=== PATIENT | female | born 1955 | race Caucasian/White ===

== ENCOUNTER 2016-05-13 10:40 | Outpatient (RCR) | payer MEDICARE, OTHER ==
[~2016-05-13 10:40] MED LIST: ALBU17AE3; ALBU17AE3 IH; ALOE VERA GEL; ASP325T; ASPI-808 PO; ASPI-954; ASPI1TAB15 PO; BUDE6HFA; BUDE6HFA IH; CPR500T PO; ESCI10TA55 PO; ESCI20TA38 PO; ESCI20TA45 PO; LACT1TAB6; LISI1TAB8 PO; METR500T PO; MNTL10T PO; MTF500T; NAPR220T76; OMEP20CA12 PO; ONDN4T PO; PHEN-452; PROM25TA14 PO; RT-ALBUINH IH; ULTIMATE FLORA
== END 2016-06-16 10:46 | disposition home or self-care (01) ==
PROVIDERS: ATTEND Orthopaedic Surgery
DX: Z47.1 Aftercare following joint replacement surgery (principal); Z96.652 Presence of left artificial knee joint

== ENCOUNTER → 2017-06-30 | Outpatient (CLI) | payer MEDICARE, OTHER ==
--- NOTE | 2017-06-30 15:07 | Diagnostic Imaging Report ---
INDICATION: Routine screening. COMPARISON: Comparison is made with a bilateral mammogram from 09/17/2015 as well as left mammograms from 10/27/2015 and 03/21/2016. TECHNIQUE: Screening digital mammography was performed bilaterally with a Computer Aided Detection (CAD) system. FINDINGS: Both breasts are heterogeneously dense, limiting the sensitivity of mammography. There are well-defined nodular densities in both breasts which appear to be stable and likely benign. No spiculated mass is identified. No malignant appearing microcalcifications are seen. There are benign calcifications bilaterally. The axillae are unremarkable. IMPRESSION: No mammographic features suspicious for malignancy are identified. ACR BI-RADS Category 2: Benign findings. Result letter will be mailed to the patient. Note: At least 10% of breast cancer is not imaged by mammography. Dictated by: Dictated on workstation # [id number]
== END ==
LOC: RAD 10:38
PROVIDERS: ATTEND Nurse Practitioner Family
DX: Z12.31 Encounter for screening mammogram for malignant neoplasm of breast (principal); Z98.890 Other specified postprocedural states
CPT/HCPCS: 77067

== ENCOUNTER 2017-11-21 13:37 | Outpatient (RCR) | payer MEDICARE, OTHER | END 2018-01-17 | disposition home or self-care (01) | PROVIDERS: ATTEND Orthopaedic Surgery | DX: M76.31 Iliotibial band syndrome, right leg (principal); M76.32 Iliotibial band syndrome, left leg ==

== ENCOUNTER → 2018-09-03 | Outpatient (CLI) | payer MEDICARE, OTHER ==
[~2018-09-03] MED LIST changes: +HOLD METFORMIN - RECEIVED CONTRAST 20 ML VIAL IV SCH; +IOHEXOL 350 MG/ML 100 ML (OMNIPAQUE 350) VIAL IV ONE; +RT-ALBUTEROL SULF 2.5 MG/3 ML PRE-MIX VIAL INH ONE
[2018-09-03 13:34] LABS: BUN/CREATININE RATIO 43; CREATININE SERUM 0.79 MG/DL (0.60-1.30); GFR ESTIMATED > 60
--- NOTE | 2018-09-03 14:10 | Diagnostic Imaging Report ---
PROCEDURE: CT chest without contrast. TECHNIQUE: Multiple contiguous axial images were obtained through the chest without the use of intravenous contrast. Auto Exposure Controls were utilized during the CT exam to meet ALARA standards for radiation dose reduction. INDICATION: Asthma with shortness of air and chest tightness. COMPARISON: No prior studies are available for comparison. FINDINGS: No axillary lymphadenopathy is seen. Hilar and mediastinal evaluation is limited without intravenous contrast but no significant abnormality is detected. No pericardial or pleural fluid is identified. Lungs are clear. No infiltrates, nodules or masses are seen. Central airways are patent. There is a circumscribed nodule in the right breast, likely accounting for multiple circumscribed masses noted on prior mammograms. Upper abdomen demonstrates a cortical density arising from the left kidney which measures slightly larger on today's study when compared with 2015. This now measures 13 mm compared with 8 mm. This cannot be characterized as a simple cyst. IMPRESSION: 1. Essentially unremarkable noncontrast CT of the chest. No pulmonary mass or infiltrate is seen. No chest effusion is identified. 2. Enlarging exophytic lesion arising from the upper pole of the left kidney posteriorly when compared with study dating back to 2015. Pre- and postcontrast CT may be useful to evaluate for enhancement. Dictated by: Dictated on workstation # [id number]
== END ==
LOC: RAD 12:44
PROVIDERS: ATTEND Nurse Practitioner Family
DX: J45.909 Unspecified asthma, uncomplicated (principal); G47.33 Obstructive sleep apnea (adult) (pediatric); N28.9 Disorder of kidney and ureter, unspecified
CPT/HCPCS: 36415; 71250; 82565; 84520; 94060; 94640; 94726; 94729

== ENCOUNTER → 2018-09-11 | Outpatient (CLI) | payer MEDICARE, OTHER ==
[~2018-09-11] MED LIST changes: -HOLD METFORMIN - RECEIVED CONTRAST 20 ML VIAL IV SCH; -IOHEXOL 350 MG/ML 100 ML (OMNIPAQUE 350) VIAL IV ONE; -RT-ALBUTEROL SULF 2.5 MG/3 ML PRE-MIX VIAL INH ONE
[2018-09-11 15:25] LABS: BASOPHILS % (AUTO) 1 % (0-10); EOSINOPHILS # (AUTO) 0.1 10^3/uL (0.0-0.3); EOSINOPHILS % (AUTO) 2 % (0-10); HEMATOCRIT 45 % (35-52); LYMPHOCYTES # (AUTO) 1.2 X 10^3 (1.0-4.0); LYMPHOCYTES % (AUTO) 19 % (12-44); MEAN CORPUSCULAR HEMOGLOBIN 30 PG (25-34); MEAN CORPUSCULAR HGB CONC 33 G/DL (32-36); MEAN CORPUSCULAR VOLUME 90 FL (80-99); MEAN PLATELET VOLUME 10.7 FL (7.4-10.4); MONOCYTES # (AUTO) 0.4 X 10^3 (0.0-1.0); MONOCYTES % (AUTO) 6 % (0-12); NEUTROPHILS # (AUTO) 4.3 X 10^3 (1.8-7.8); NEUTROPHILS % (AUTO) 72 % (42-75); PLATELET COUNT 186 10^3/uL (130-400); RED CELL DISTRIBUTION WIDTH 13.9 % (10.0-14.5)
[2018-09-11 16:23] LABS: ABG BASE EXCESS 1.6 MMOL/L (-2.5-2.5); ABG OXYGEN SATURATION 97 % (94-100); ABG PCO2 35 MMHG (35-45); ABG PH 7.47 (7.37-7.43); ABG PO2 106 MMHG (79-93); ABG TCO2 26.3 MMOL/L (21.0-31.0); ALLENS TEST YES-POS; INSPIRED O2 ROOM AIR; PATIENT TEMP 97.4; VENTILATOR NO
[2018-09-12 05:39] LABS: ALTERNARIA MOLD RAST <0.35 kU/L (<0.35); RAGWEED RAST <0.35 kU/L (<0.35)
== END ==
LOC: LAB 14:43
PROVIDERS: ATTEND Internal Medicine Critical Care Medicine
DX: J45.909 Unspecified asthma, uncomplicated (principal); R06.02 Shortness of breath; G47.33 Obstructive sleep apnea (adult) (pediatric); J30.9 Allergic rhinitis, unspecified
CPT/HCPCS: 36415; 36600; 82785; 82805; 85025; 86003

== ENCOUNTER → 2019-02-15 | Outpatient (CLI) | payer MEDICARE, OTHER ==
--- NOTE | 2019-02-15 22:50 | Diagnostic Imaging Report ---
INDICATION: Palpable lump right breast. Correlation is made with diagnostic mammogram earlier the same day. FINDINGS: Sonographic interrogation of area of palpable abnormality in the right breast was performed. This corresponds to 12 o'clock location 2 cm from the nipple. There is a small cyst with internal septations at this location measuring 5 mm x 4 mm x 4 mm. No internal vascularity is seen. No posterior acoustic shadowing is present. IMPRESSION: Subcentimeter septated cyst 12 o'clock retroareolar right breast at the area of patient's palpable abnormality. This has benign features. Patient may return to routine annual screening mammography. ACR BI-RADS Category 2: Benign findings. Dictated by: Dictated on workstation # [id number]
--- NOTE | 2019-02-15 22:57 | Diagnostic Imaging Report ---
INDICATION: Right breast lump. Correlation is made with prior mammogram 06/30/2017. 2-D and 3-D bilateral diagnostic mammography was performed. The current study was also evaluated with a Computer Aided Detection (CAD) system. 3-D Tomographic imaging was also performed. FINDINGS: Both breasts are heterogeneously dense, limiting the sensitivity of mammography. BB-marker was placed at the area of palpable abnormality in the upper and outer retroareolar right breast. No underlying mass is seen. There are numerous circumscribed nodular densities in both breasts which appear stable when compared with prior mammograms and most consistent with benign etiologies. There are benign parenchymal and vascular calcifications bilaterally. Axillae are unremarkable. IMPRESSION: No mammographic features suspicious for malignancy are identified. Even so, directed sonographic interrogation of the area of palpable abnormality in the right breast is recommended and will be performed today. ACR BI-RADS Category 0: Incomplete. (Needs additional imaging evaluation). Result letter will be mailed to the patient. Note: At least 10% of breast cancer is not imaged by mammography. Dictated by: Dictated on workstation # [id number]
== END ==
LOC: RAD 12:56
PROVIDERS: ATTEND Registered Nurse
DX: N63.10 Unspecified lump in the right breast, unspecified quadrant (principal); N60.01 Solitary cyst of right breast; Z98.890 Other specified postprocedural states
CPT/HCPCS: 77066

== ENCOUNTER 2019-07-20 17:31 | Inpatient (IN) | payer MEDICARE, OTHER ==
[~2019-07-20] VITALS: Ht 162.6 cm; Wt 139.2 kg
[~2019-07-20 17:31] MED LIST changes: +LISI1TAB25 PO; -LISI1TAB8 PO
[2019-07-20] MEDS ORDERED: ASPIRIN 81 MG CHEW (CHILDREN'S ASA) PO ONE (17:45)
[2019-07-20] MEDS ORDERED: NS IV 1000 ML 1,000 ML IV SCH (17:51)
[2019-07-20 17:54] LABS: BASOPHILS % (AUTO) 0 % (0-10); EOSINOPHILS % (AUTO) 0 % (0-10); HEMATOCRIT 45 % (35-52); HEMOGLOBIN 14.9 G/DL (11.5-16.0); LYMPHOCYTES # (AUTO) 0.4 X 10^3 (1.0-4.0); LYMPHOCYTES % (AUTO) 5 % (12-44); MEAN CORPUSCULAR HEMOGLOBIN 30 PG (25-34); MEAN CORPUSCULAR HGB CONC 33 G/DL (32-36); MEAN CORPUSCULAR VOLUME 89 FL (80-99); MEAN PLATELET VOLUME 10.9 FL (7.4-10.4); MONOCYTES # (AUTO) 0.1 X 10^3 (0.0-1.0); MONOCYTES % (AUTO) 1 % (0-12); NEUTROPHILS # (AUTO) 7.4 X 10^3 (1.8-7.8); NEUTROPHILS % (AUTO) 94 % (42-75); PLATELET COUNT 237 10^3/uL (130-400); RED CELL DISTRIBUTION WIDTH 15.9 % (10.0-14.5); WHITE BLOOD COUNT 7.9 10^3/uL (4.3-11.0)
[2019-07-20] MEDS ORDERED: ANTACID SUSP 30 ML UDC (MYLANTA) PO ONE (18:00)
[2019-07-20] MEDS ORDERED: ONDANSETRON 4 MG/2 ML (SDV) Z0FRAN IVP ONE (18:00)
[2019-07-20] MEDS ORDERED: LIDOCAINE 2% VISCOUS 15 ML UDC PO ONE (18:00)
--- NOTE | 2019-07-20 18:03 | ED Chest Pain ---
General Chief Complaint: Chest Pain Stated Complaint: CP,BACK PAIN Nursing Triage Note: C/O STERNAL CHEST PAIN RADIATING TO HER BACK STARTING AT 1330. PATIENT REPORTS SOA AND NAUSEA Nursing Sepsis Screen: No Definite Risk History of Present Illness Date Seen by Provider: Jul 20, 2019 Time Seen by Provider: 17:45 Initial Comments 64-year-old female presents for chest pain. She reports at 10:00 this morning she presented to the [place] emergency department for an allergic reaction to Cipro that she was started on for UTI. She was given Zyrtec and Pepcid and the reaction is improved. The Cipro was stopped and she was put on Macrobid, she hasn't taken it yet today. Then at 1300 today she began to have e pigastric pain, no radiation to her left arm, there are some radiation to her back. She has no known cardiac history, she is prediabetic and lost 100 lbs approx 18 month ago following a strict low carb diet, she has regained that weight and more, over the last year. She denies a family history of CAD. She has a history of GERD and hiatal hernia, cholecystectomy a proximally 30 years ago. She takes omeprazole daily. No diaphoresis or pallor. Timing/Duration: 1-3 hours Severity/Quality: mild Location: epigastric Radiation: back ASA po RABBIT FANCIER: No NTG SL RABBIT FANCIER: No Associated Symptoms: back pain, heartburn, nausea/vomiting Allergies and Home Medications Allergies Coded Allergies: Iodinated Contrast Media (Verified Allergy, Severe, 07/20/19) Sulfa (Sulfonamide Antibiotics) (Unverified Allergy, Mild, 12/20/08) indomethacin (Unverified Allergy, Mild, 12/20/08) iodine (Unverified Allergy, Mild, 12/20/08) lansoprazole (Unverified Allergy, Mild, 12/20/08) latex (Unverified Allergy, Mild, 12/20/08) meperidine (Unverified Allergy, Mild, 12/20/08) paroxetine (Unverified Allergy, Mild, 12/20/08) ciprofloxacin (Verified Allergy, Unknown, 07/20/19) Uncoded Allergies: ANIMAL DANDER (Allergy, Mild, 12/20/08) TAPE (Allergy, Mild, 12/20/08) Home Medications Albuterol Sulfate 8.5 Gm Hfa.aer.ad, 2 PUFF IH Q4H PRN for SHORTNESS OF BREATH, (Reported) Aspirin 325 Mg Tablet, 325 MG PO BID PRN for HEADACHE, (Reported) Aspirin/Acetaminophen/Caffeine 1 Each Tablet, 1 TAB PO BID PRN for MIGRAINE, (Reported) Escitalopram Oxalate 20 Mg Tablet, 20 MG PO DAILY, (Reported) Lisinopril/Hydrochlorothiazide 1 Each Tablet, 1 TAB PO DAILY, (Reported) Montelukast Sodium 10 Mg Tab, 10 MG PO DAILY, (Reported) Omeprazole 20 Mg Capsule.dr, 20 MG PO DAILY, (Reported) Promethazine HCl 25 Mg Tablet, 25 MG PO Q4H PRN for NAUSEA/VOMITING Prescribed by: CONNIE RANDLE on 04/26/15 1410 Patient Home Medication List Home Medication List Reviewed: Yes Review of Systems Review of Systems Constitutional: no symptoms reported, see HPI Cardiovascular: See HPI, Chest Pain Gastrointestinal: See HPI, Abdominal Pain (epigastric), Nausea All Other Systems Reviewed Negative Unless Noted: Yes Past Hwgeran-Vupcao-Xssght Hx Past Med/Social Hx: Reviewed Nursing Past Med/Soc Hx Patient Social History Alcohol Use: Rarely Uses Recreational Drug Use: No Recent Foreign Travel: No Contact w/Someone Who Travel: No Recent Infectious Disease Expo: No Recent Hopitalizations: No Immunizations Up To Date Tetanus Booster (TDap): Unknown PED Vaccines UTD: Yes Date of Influenza Vaccine: Mar 12, 2015 Past Medical History Surgeries: Yes (KIDNEY STENTS) Appendectomy, Gallbladder, Hysterectomy, Lumpectomy Respiratory: Yes Asthma Currently Using CPAP: No Currently Using BIPAP: No Cardiac: No Neurological: Yes Reproductive Disorders: No Female Reproductive Disorders: Denies Sexually Transmitted Disease: No HIV/AIDS: No Kidney Stones Gastrointestinal: Yes Gastroesophageal Reflux, Diverticulosis Musculoskeletal: Yes (broken leg when small, possible right leg) Endocrine: Yes (DIET CONTROLLED) Diabetes, Non-Insulin dep Cancer: No Psychosocial: Yes Depression Integumentary: Yes (SHAMBERG DISEASE) Blood Disorders: No Adverse Reaction/Blood Tranf: No Family Medical History Alcoholism 19 FATHER G8 SISTER G8 SISTER Arthritis 19 FATHER 19 MOTHER G8 SISTER G8 SISTER G8 SISTER G8 SISTER Cardiovascular disease 19 MOTHER Cataracts 19 FATHER 19 MOTHER Deafness or hearing loss 19 FATHER 19 MOTHER Dementia 19 MOTHER Drug abuse G8 BROTHER Fibrocystic disease of breast 19 MOTHER G8 SISTER G8 SISTER Headache disorder 19 FATHER 19 MOTHER G8 BROTHER G8 SISTER G8 SISTER G8 SISTER G8 SISTER Hypertension 19 FATHER Kidney disease 19 FATHER Psychosocial problem G8 BROTHER Respiratory disorder G8 SISTER G8 SISTER G8 SISTER G8 SISTER No Pertinent Family Hx Physical Exam Vital Signs Vital Signs - First Documented 07/20/19 17:38 Temp 36.7 Pulse 82 Resp 24 B/P (MAP) 151/91 (111) Pulse Ox 96 Capillary Refill : Less Than 3 Seconds Height, Weight, BMI Height: 5'4.00" Weight: 300lbs. 0.0oz. 136.334472oc; 51.00 BMI Method:Stated General Appearance: No Apparent Distress, WD/WN, Obese HEENT: PERRL/EOMI, TMs Normal, Normal ENT Inspection, Pharynx Normal Neck: Full Range of Motion, Normal Inspection, Non Tender, Supple Respiratory: Chest Non Tender, Lungs Clear, Normal Breath Sounds Cardiovascular: Regular Rate, Rhythm, No Murmur Gastrointestinal: Normal Bowel Sounds, Soft; No Distended, No Guarding, No Mass, No Rebound; Tenderness (epigastric) Extremity: Normal Capillary Refill, Normal Inspection, Normal Range of Motion, Pedal Edema (1+) Neurologic/Psychiatric: Alert, Oriented x3, No Motor/Sensory Deficits, Normal Mood/Affect Skin: Normal Color, Warm/Dry, Rash (petechial rash to abdomen, patient reports it has improved throughout the day, puritus. ) Progress/Results/Core Measures Results/Orders Lab Results Laboratory Tests Test 07/20/19 17:45 07/20/19 20:55 Range/Units White Blood Count 7.9 4.3-11.0 10^3/uL Red Blood Count 5.02 4.35-5.85 10^6/uL Hemoglobin 14.9 11.5-16.0 G/DL Hematocrit 45 35-52 % Mean Corpuscular Volume 89 80-99 FL Mean Corpuscular Hemoglobin 30 25-34 PG Mean Corpuscular Hemoglobin Concent 33 32-36 G/DL Red Cell Distribution Width 15.9 H 10.0-14.5 % Platelet Count 237 130-400 10^3/uL Mean Platelet Volume 10.9 H 7.4-10.4 FL Neutrophils (%) (Auto) 94 H 42-75 % Lymphocytes (%) (Auto) 5 L 12-44 % Monocytes (%) (Auto) 1 0-12 % Eosinophils (%) (Auto) 0 0-10 % Basophils (%) (Auto) 0 0-10 % Neutrophils # (Auto) 7.4 1.8-7.8 X 10^3 Lymphocytes # (Auto) 0.4 L 1.0-4.0 X 10^3 Monocytes # (Auto) 0.1 0.0-1.0 X 10^3 Eosinophils # (Auto) 0.0 0.0-0.3 10^3/uL Basophils # (Auto) 0.0 0.0-0.1 10^3/uL Neutrophils % (Manual) 95 % Lymphocytes % (Manual) 4 % Monocytes % (Manual) 1 % Eosinophils % (Manual) 0 % Basophils % (Manual) 0 % Band Neutrophils 0 % Anisocytosis SLIGHT Prothrombin Time 13.2 12.2-14.7 SEC INR Comment 1.0 0.8-1.4 Activated Partial Thromboplast Time 30 24-35 SEC Sodium Level 137 135-145 MMOL/L Potassium Level 3.7 3.6-5.0 MMOL/L Chloride Level 103 98-107 MMOL/L Carbon Dioxide Level 20 L 21-32 MMOL/L Anion Gap 14 5-14 MMOL/L Blood Urea Nitrogen 10 7-18 MG/DL Creatinine 0.77 0.60-1.30 MG/DL Estimat Glomerular Filtration Rate > 60 BUN/Creatinine Ratio 13 Glucose Level 208 H 70-105 MG/DL Calcium Level 9.8 8.5-10.1 MG/DL Corrected Calcium 9.8 8.5-10.1 MG/DL Magnesium Level 2.3 1.6-2.4 MG/DL Total Bilirubin 5.5 H 0.1-1.0 MG/DL Aspartate Amino Transf (AST/SGOT) 247 H 5-34 U/L Alanine Aminotransferase (ALT/SGPT) 504 H 0-55 U/L Alkaline Phosphatase 274 H 40-136 U/L Myoglobin 59.0 10.0-92.0 NG/ML Troponin I < 0.028 <0.028 NG/ML B-Type Natriuretic Peptide 48.3 <100.0 PG/ML Total Protein 7.5 6.4-8.2 GM/DL Albumin 4.0 3.2-4.5 GM/DL Amylase Level 1016 H 25-125 U/L Lipase 2150 H 8-78 U/L Acetaminophen Level < 10 L 10-30 UG/ML Serum Alcohol < 10 <10 MG/DL Urine Color YELLOW Urine Clarity CLEAR Urine pH 5.5 5-9 Urine Specific [place] 1.015 L 1.016-1.022 Urine Protein NEGATIVE NEGATIVE Urine Glucose (UA) NEGATIVE NEGATIVE Urine Ketones 2+ H NEGATIVE Urine Nitrite NEGATIVE NEGATIVE Urine Bilirubin 1+ H NEGATIVE Urine Urobilinogen 1.0 < = 1.0 MG/DL Urine Leukocyte Esterase 1+ H NEGATIVE Urine RBC (Auto) NEGATIVE NEGATIVE Urine RBC NONE /HPF Urine WBC 2-5 /HPF Urine Squamous Epithelial Cells 5-10 /HPF Urine Crystals NONE /LPF Urine Bacteria TRACE /HPF Urine Casts NONE /LPF Urine Mucus NEGATIVE /LPF Urine Culture Indicated NO My Orders Orders - LAUREN BHARDWAJ Cbc With Automated Diff (07/20/19 17:37) Magnesium (07/20/19 17:37) Chest 1 View, Ap/Pa Only (07/20/19 17:37) Ekg Tracing (07/20/19 17:37) Comprehensive Metabolic Panel (07/20/19 17:37) Myoglobin Serum (07/20/19 17:37) Protime With Inr (07/20/19 17:37) Partial Thromboplastin Time (07/20/19 17:37) O2 (07/20/19 17:37) Monitor-Rhythm Ecg Trace Only (07/20/19 17:37) Ed Iv/Invasive Line Start (07/20/19 17:37) BNP (07/20/19 17:37) Troponin I (07/20/19 17:37) Aspirin Chewable Tablet (Baby Aspirin Ch (07/20/19 17:45) Ed Iv/Invasive Line Start (07/20/19 17:51) Ns Iv 1000 Ml (Sodium Chloride 0.9%) (07/20/19 17:51) Lidocaine 2% Viscous 15 Ml (Xylocaine Vi (07/20/19 18:00) Antacid Suspension (Mylanta Suspension (07/20/19 18:00) Ondansetron Injection (Zofran Injectio (07/20/19 18:00) Manual Differential (07/20/19 17:45) Lipase (07/20/19 19:05) Amylase (07/20/19 19:05) Ct Abdomen/Pelvis Wo (07/20/19 19:13) Ed Iv/Invasive Line Start (07/20/19 20:21) Lactated Ringers (Lr 1000 Ml Iv Solution (07/20/19 20:21) Fentanyl Injection (Sublimaze Injection (07/20/19 20:45) Acetaminophen (07/20/19 20:43) Alcohol (07/20/19 20:43) Ua Culture If Indicated (07/20/19 20:43) Medications Given in ED Current Medications Medications Dose Ordered Sig/Candi Route Start Time Stop Time Status Last Admin Dose Admin Al Hydrox/Mg Hydrox/Simethicone 30 ml ONCE ONCE PO 07/20/19 18:00 07/20/19 18:01 DC 07/20/19 18:29 30 ML Aspirin 324 mg ONCE ONCE PO 07/20/19 17:45 07/20/19 17:46 DC 07/20/19 18:30 324 MG Fentanyl Citrate 25 mcg ONCE ONCE IVP 07/20/19 20:45 07/20/19 20:46 DC 07/20/19 20:51 25 MCG Lactated Ringer's 1,000 ml @ 0 mls/hr Q0M ONCE IV 07/20/19 20:21 07/20/19 20:22 DC 07/20/19 20:30 0 MLS/HR Lidocaine HCl 15 ml ONCE ONCE PO 07/20/19 18:00 07/20/19 18:01 DC 07/20/19 18:29 15 ML Ondansetron HCl 4 mg ONCE ONCE IVP 07/20/19 18:00 07/20/19 18:01 DC 07/20/19 18:30 4 MG Vital Signs/I&O 07/20/19 07/20/19 07/20/19 17:38 17:45 17:45 Temp 36.7 Pulse 82 Resp 24 B/P (MAP) 151/91 (111) Pulse Ox 96 O2 Delivery Room Air Room Air Blood Pressure Mean: 111 Progress Progress Note : Time: 17:45 Progress Note Patient seen and evaluated, will obtain chest x-ray, EKG, labs, aspirin 324 mg orally, GI cocktail, Zofran 4 mg IV and normal saline 1 L IV. She currently rates the pain as 3/10, will hold on giving nitroglycerin at this time and see results after GI cocktail. 1829 Patient reports resolution of her epigastric pain after the GI cocktail. Awaiting lab results. 1899 No further pain, but elevated liver enzymes. Will check amylase and lipase and obtain CT Abd/Pelvis. 1944 LR 1 L per IV, will keep NPO. 2029 Fentanyl 25 mcg IV for pain. Reviewed CT Discussed CT and lab results with patient. Unsure of cause of pancreatitis, but could be from Cipro. She denies alcohol use, very rare use of Yudelka Cream in her coffee. [address] Watkins, agreed to accept patient for Dr Polanco. [address] Andrews, will consult on patient tomorrow. Initial ECG Impression Date: Jul 20, 2019 Initial ECG Impression Time: 17:39 Initial ECG Rate: 80 Initial ECG Rhythm: Normal Sinus Initial ECG Intervals: Normal Initial ECG Intervals MI 168, QRSD 90, QT 404, QTc 466. [place] P 46, QRS -23 T 15. Initial ECG Impression: Normal Initial ECG Comparisson: No Previous ECG Available Diagnostic Imaging Diagonstic Imaging: Xray Plain Films/CT/US/NM/MRI: chest Comments [place], [place] NAME: JOVANI LUU [facility] REC#: [id number] PT STATUS: REG ER : 1955 PHYSICIAN: LAUREN BHARDWAJ ADMIT DATE: 07/20/19/ER Draft Date of Exam:07/20/19 CHEST 1 VIEW, AP/PA ONLY INDICATION: Chest pain. Upright portable AP view of the chest is obtained with comparison made to study of 08/26/2015. FINDINGS: Heart size and pulmonary vascularity are within normal limits, and the lungs are clear, bilaterally. IMPRESSION: Unremarkable chest. Dictated on workstation # [id number] Dict: 07/20/191804 Trans: 07/20/191806 [facility] [id number] Interpreted by: BOB SIMMONS MD Electronically signed by: Reviewed: Reviewed by Me Diagonstic Imaging: CT Plain Films/CT/US/NM/MRI: abdomen, pelvis Comments NAME: JOVANI LUU [employer] [facility] REC#: [id number] PT STATUS: ADM Itz : 1955 PHYSICIAN: LAUREN BHARDWAJ ADMIT DATE: 07/20/19/ Signed Date of Exam:07/20/19 CT ABDOMEN/PELVIS WO PROCEDURE: CT abdomen and pelvis without contrast. TECHNIQUE: Multiple contiguous axial images were obtained through the abdomen and pelvis without the use of intravenous contrast. Auto Exposure Controls were utilized during the CT exam to meet ALARA standards for radiation dose reduction. INDICATION: Chest and abdominal pain. COMPARISON: Study of 04/22/2015. FINDINGS: There is minimal linear atelectasis and/or scarring in the left lung base. There appears to be eventration posteriorly in the left hemidiaphragm. Unenhanced images of the liver reveal previous cholecystectomy with mild intrahepatic and extrahepatic biliary ductal dilatation. No calcified stone is seen along the course of the biliary tree. No pancreatic or splenic lesion is seen on the noncontrasted study. Adrenal glands are stable in overall appearance. Small exophytic nodule along the superior pole of the left kidney similar to the previous study. There is also a persistent nonobstructing stone in the lower pole of the right kidney which now measures 0.6 cm in size. There is mild dilatation of the right renal collecting system; however, the right ureter is of normal caliber without evidence of ureteric stone. Left ureter is also unremarkable without dilatation or stone. No free fluid is seen within the abdomen or pelvis. There is no evidence of bladder stone. There is no evidence of localized inflammation. IMPRESSION: There has been development of mild biliary ductal dilatation without obstructing calculus identified. There is persistent nonobstructing stone in the right kidney and presumed hemorrhagic cyst in left kidney without evidence of new abnormality identified. Dictated by: Dictated on workstation # [id number] Dict: 07/20/192117 Reviewed: Reviewed by Me Departure Impression Primary Impression: Acute pancreatitis Qualified Codes: K85.00 - Idiopathic acute pancreatitis without necrosis or infection Additional Impression: UTI (urinary tract infection) Qualified Codes: N30.01 - Acute cystitis with hematuria Disposition: ADMITTED INPATIENT Condition: Stable (ERASED) Admissions Decision to Admit Reason: Admit from ER (General) Decision to Admit/Date: Jul 20, 2019 Time/Decision to Admit Time: 20:45 Departure-Patient Inst. Referrals: NO,LOCAL PHYSICIAN (PCP) Primary Care Physician TURNER GARVEY (Family) Primary Care Physician LAUREN BHARDWAJ Jul 20, 2019 18:03
[2019-07-20 18:06] LABS: PROTHROMBIN TIME PATIENT 13.2 SEC (12.2-14.7)
--- NOTE | 2019-07-20 18:07 | Diagnostic Imaging Report ---
INDICATION: Chest pain. Upright portable AP view of the chest is obtained with comparison made to study of 08/26/2015. FINDINGS: Heart size and pulmonary vascularity are within normal limits, and the lungs are clear, bilaterally. IMPRESSION: Unremarkable chest. Dictated by: Dictated on workstation # [id number]
[2019-07-20 18:09] LABS: ANISOCYTOSIS SLIGHT; BAND NEUTROPHILS 0 %; BASOPHILS % (MANUAL) 0 %; EOSINOPHILS % (MANUAL) 0 %; LYMPHOCYTES % (MANUAL) 4 %; MONOCYTES % (MANUAL) 1 %; NEUTROPHILS % (MANUAL) 95 %
[2019-07-20 18:13] LABS: ALANINE AMINOTRANSFERASE 504 U/L (0-55); ALKALINE PHOSPHATASE 274 U/L (40-136); BILIRUBIN,TOTAL 5.5 MG/DL (0.1-1.0); CALCIUM 9.8 MG/DL (8.5-10.1); CARBON DIOXIDE 20 MMOL/L (21-32); CHLORIDE 103 MMOL/L (98-107); GLUCOSE 208 MG/DL (70-105); MAGNESIUM 2.3 MG/DL (1.6-2.4); POTASSIUM 3.7 MMOL/L (3.6-5.0); SODIUM 137 MMOL/L (135-145); TOTAL PROTEIN 7.5 GM/DL (6.4-8.2)
[2019-07-20 18:39] LABS: BUN/CREATININE RATIO 13; CREATININE SERUM 0.77 MG/DL (0.60-1.30); GFR ESTIMATED > 60
[2019-07-20 19:23] LABS: AMYLASE 1016 U/L (25-125)
[2019-07-20 19:43] LABS: LIPASE 2150 U/L (8-78)
[2019-07-20] MEDS ORDERED: HOLD METFORMIN - RECEIVED CONTRAST 20 ML VIAL IV SCH (19:45)
[2019-07-20] MEDS ORDERED: NS 100 ML (IVPB) BAG IV ONE (19:45)
[2019-07-20] MEDS ORDERED: IOHEXOL 350 MG/ML 100 ML (OMNIPAQUE 350) VIAL IV ONE (19:45)
[2019-07-20] MEDS ORDERED: LACTATED RINGERS 1,000 ML IV ONE (20:21)
[2019-07-20] MEDS ORDERED: fentaNYL INJECTION 100 MCG/2 ML AMP IVP ONE (20:45)
[2019-07-20 21:01] LABS: CLARITY,URINE CLEAR; COLOR,URINE YELLOW; GLUCOSE, URINE (UA) NEGATIVE (NEGATIVE); KETONES,URINE 2+ (NEGATIVE); LEUKOCYTE ESTERASE ,URINE 1+ (NEGATIVE); NITRITE,URINE NEGATIVE (NEGATIVE); PH,URINE 5.5 (5-9); PROTEIN,URINE NEGATIVE (NEGATIVE)
[2019-07-20 21:05] LABS: ACETAMINOPHEN < 10 UG/ML (10-30)
[2019-07-20 21:08] LABS: BILIRUBIN,URINE 1+ (NEGATIVE)
[2019-07-20 21:11] LABS: BACTERIA,URINE TRACE /HPF
--- NOTE | 2019-07-20 21:27 | Diagnostic Imaging Report ---
PROCEDURE: CT abdomen and pelvis without contrast. TECHNIQUE: Multiple contiguous axial images were obtained through the abdomen and pelvis without the use of intravenous contrast. Auto Exposure Controls were utilized during the CT exam to meet ALARA standards for radiation dose reduction. INDICATION: Chest and abdominal pain. COMPARISON: Study of 04/22/2015. FINDINGS: There is minimal linear atelectasis and/or scarring in the left lung base. There appears to be eventration posteriorly in the left hemidiaphragm. Unenhanced images of the liver reveal previous cholecystectomy with mild intrahepatic and extrahepatic biliary ductal dilatation. No calcified stone is seen along the course of the biliary tree. No pancreatic or splenic lesion is seen on the noncontrasted study. Adrenal glands are stable in overall appearance. Small exophytic nodule along the superior pole of the left kidney similar to the previous study. There is also a persistent nonobstructing stone in the lower pole of the right kidney which now measures 0.6 cm in size. There is mild dilatation of the right renal collecting system; however, the right ureter is of normal caliber without evidence of ureteric stone. Left ureter is also unremarkable without dilatation or stone. No free fluid is seen within the abdomen or pelvis. There is no evidence of bladder stone. There is no evidence of localized inflammation. IMPRESSION: There has been development of mild biliary ductal dilatation without obstructing calculus identified. There is persistent nonobstructing stone in the right kidney and presumed hemorrhagic cyst in left kidney without evidence of new abnormality identified. Dictated by: Dictated on workstation # [id number]
--- NOTE | 2019-07-20 21:45 | NUR ---
JOVANI LUU admitted to room 432-1, with an admitting diagnosis of ACUTE PANCREATITIS, on 07/20/19 from ER via , accompanied by ER SATFF AND . JOVANI LUU introduced to surroundings, call light, bed controls, phone, TV, temperature control, lights, meal times, smoking policy, visitor policy, side rail policy, bathrooms and showers. Patient Rights given to patient in the handbook. JOVANI LUU verbalizes understanding that [facility] is not responsible for the loss or damage to any personal effects or valuables that are kept in the patients posession during their hospitalization. JOVANI LUU verbalizes understanding of Interdisciplinary Patient Education. Patient and/or family were informed about the Rapid Response Team and its purpose.
[2019-07-20] MEDS ORDERED: fentaNYL INJECTION 100 MCG/2 ML AMP IV PRN (22:15)
[2019-07-20 22:23] VITALS: BP 147/70
[2019-07-20] MEDS: LACTATED RINGERS 1,000 ML IV SCH (22:30)
[2019-07-20] MEDS: fentaNYL INJECTION 100 MCG/2 ML AMP IV PRN (22:31)
[2019-07-20] MEDS: FAMOTIDINE 20MG/2ML IV (PEPCID) IVP SCH (22:31)
[2019-07-20] MEDS: cefTRIAXone 1,000 MG/SWFI 10 ML IV PUSH IV SCH ×2 (22:32)
[2019-07-20] MEDS: PANTOPRAZOLE 40 MG (PROTONIX) VIAL IV SCH (22:32)
[2019-07-21] VITALS: BP 135/63
[2019-07-21] MEDS: ONDANSETRON 4 MG/2 ML (SDV) Z0FRAN IV PRN ×2 (01:16→22:55)
[2019-07-21] MEDS: fentaNYL INJECTION 100 MCG/2 ML AMP IV PRN (03:14)
[2019-07-21 04:00] VITALS: BP 139/67
[2019-07-21] MEDS: LACTATED RINGERS 1,000 ML IV SCH ×5 (04:27→23:34)
[2019-07-21] MEDS: HYDROmorphone 2 MG/ML VIAL (DILAUDID) IV PRN ×3 (05:06→19:05)
--- NOTE | 2019-07-21 05:10 | NUR ---
DR YOUNG NOTIFIED ABOUT PT BEEN IN SEVERE PAIN, CRYING AND MOANING. NEW ORDERS RECEIVED. SEE ORDER HX.
[2019-07-21 06:56] LABS: BASOPHILS % (AUTO) 0 % (0-10); EOSINOPHILS % (AUTO) 0 % (0-10); HEMATOCRIT 39 % (35-52); HEMOGLOBIN 12.8 G/DL (11.5-16.0); LYMPHOCYTES # (AUTO) 0.6 X 10^3 (1.0-4.0); LYMPHOCYTES % (AUTO) 8 % (12-44); MEAN CORPUSCULAR HEMOGLOBIN 30 PG (25-34); MEAN CORPUSCULAR HGB CONC 33 G/DL (32-36); MEAN CORPUSCULAR VOLUME 90 FL (80-99); MEAN PLATELET VOLUME 11.1 FL (7.4-10.4); MONOCYTES # (AUTO) 0.5 X 10^3 (0.0-1.0); MONOCYTES % (AUTO) 6 % (0-12); NEUTROPHILS # (AUTO) 7.2 X 10^3 (1.8-7.8); NEUTROPHILS % (AUTO) 87 % (42-75); PLATELET COUNT 191 10^3/uL (130-400); RED CELL DISTRIBUTION WIDTH 15.9 % (10.0-14.5); WHITE BLOOD COUNT 8.3 10^3/uL (4.3-11.0)
[2019-07-21 07:34] LABS: ALANINE AMINOTRANSFERASE 404 U/L (0-55); ALBUMIN 3.4 GM/DL (3.2-4.5); ALKALINE PHOSPHATASE 211 U/L (40-136); BILIRUBIN,TOTAL 2.8 MG/DL (0.1-1.0); BUN/CREATININE RATIO 12; CALCIUM 8.8 MG/DL (8.5-10.1); CARBON DIOXIDE 20 MMOL/L (21-32); CHLORIDE 107 MMOL/L (98-107); CHOLESTEROL 144 MG/DL (< 200); CREATININE SERUM 0.73 MG/DL (0.60-1.30); GFR ESTIMATED > 60; GLUCOSE 161 MG/DL (70-105); HDL CHOLESTEROL 40 MG/DL (40-60); POTASSIUM 3.7 MMOL/L (3.6-5.0); SODIUM 138 MMOL/L (135-145); TOTAL PROTEIN 6.2 GM/DL (6.4-8.2); TRIGLYCERIDES 61 MG/DL (<150); VLDL CHOLESTEROL 12 MG/DL (5-40)
[2019-07-21 08:00] VITALS: BP 142/65
[2019-07-21] MEDS: FAMOTIDINE 20MG/2ML IV (PEPCID) IVP SCH ×2 (08:24→20:38)
[2019-07-21] MEDS: PANTOPRAZOLE 40 MG (PROTONIX) VIAL IV SCH ×2 (08:24→20:38)
[2019-07-21 12:00] VITALS: BP 134/63
--- NOTE | 2019-07-21 12:35 | Consultation - Surgery ---
MIGUEL JI [facility] 07/21/19 1235: History of Present Illness History of Present Illness Patient Consulted On(jennifer/time) 07/21/19 12:28 Date Seen by Provider: Jul 21, 2019 Time Seen by Provider: 12:20 History of Present Illness CC: Chest Pain HPI: 64 yo white obese female presented to the ER with recent onset of chest pain that is located in the epigastric area of the stomach. Pain started at 1300 yesterday (07/20/19), and the pain traveled to her back but did not travel to her arm. Patient rates the pain as mild. Associated symptoms include nausea, vomiting, heart burn and back pain. Patient is taking omeprazole and was recently taking ciprofloxacin. Allergies and Home Medications Allergies Coded Allergies: Iodinated Contrast Media (Verified Allergy, Severe, 07/20/19) Sulfa (Sulfonamide Antibiotics) (Unverified Allergy, Mild, 12/20/08) indomethacin (Unverified Allergy, Mild, 12/20/08) iodine (Unverified Allergy, Mild, 12/20/08) lansoprazole (Unverified Allergy, Mild, 12/20/08) latex (Unverified Allergy, Mild, 12/20/08) meperidine (Unverified Allergy, Mild, 12/20/08) paroxetine (Unverified Allergy, Mild, 12/20/08) ciprofloxacin (Verified Allergy, Unknown, 07/20/19) Uncoded Allergies: ANIMAL DANDER (Allergy, Mild, 12/20/08) TAPE (Allergy, Mild, 12/20/08) Home Medications Albuterol Sulfate 8.5 Gm Hfa.aer.ad, 2 PUFF IH Q4H PRN for SHORTNESS OF BREATH, (Reported) Aspirin 325 Mg Tablet, 325 MG PO BID PRN for HEADACHE, (Reported) Aspirin/Acetaminophen/Caffeine 1 Each Tablet, 1 TAB PO BID PRN for MIGRAINE, (Reported) Escitalopram Oxalate 20 Mg Tablet, 20 MG PO DAILY, (Reported) Lisinopril/Hydrochlorothiazide 1 Each Tablet, 1 TAB PO DAILY, (Reported) Montelukast Sodium 10 Mg Tab, 10 MG PO DAILY, (Reported) Omeprazole 20 Mg Capsule.dr, 20 MG PO DAILY, (Reported) Promethazine HCl 25 Mg Tablet, 25 MG PO Q4H PRN for NAUSEA/VOMITING Prescribed by: CONNIE RANDLE on 04/26/15 1410 Past Indlghf-Jlrieh-Yjqetz Hx Patient Social History Alcohol Use: Rarely Uses Recreational Drug Use: No Smoking Status: Never a Smoker Recent Foreign Travel: No Contact w/Someone Who Travel: No Recent Infectious Disease Expo: Yes Recent Hopitalizations: No Immunizations Up To Date Tetanus Booster (TDap): Unknown PED Vaccines UTD: Yes Date of Influenza Vaccine: Mar 26, 2019 Surgeries History of Surgeries: Yes (KIDNEY STENTS) Surgeries: Appendectomy, Gallbladder, Hysterectomy, Joint Replacement (Bilateral knees), Lumpectomy Respiratory History of Respiratory Disorde: Yes Respiratory Disorders: Asthma Cardiovascular History of Cardiac Disorders: Yes Cardiac Disorders: Hypertension Neurological History of Neurological Disord: No Reproductive System Hx Reproductive Disorders: No Sexually Transmitted Disease: No HIV/AIDS: No Female Reproductive Disorders: Denies Genitourinary Genitourinary Disorders: Kidney Stones Gastrointestinal History of Gastrointestinal Di: Yes Gastrointestinal Disorders: Gastroesophageal Reflux, Diverticulosis, Pancreatitis Musculoskeletal History of Musculoskeletal Dis: Yes (Bilateral knee replacement) Musculoskeletal Disorders: Arthritis Endocrine History of Endocrine Disorders: Yes (Prediabetic) Endocrine Disorders: Diabetes, Non-Insulin dep HEENT History of HEENT Disorders: No Loss of Vision: Denies Hearing Impairment: Denies Cancer History of Cancer: No Integumentary History of Skin or Integumenta: Yes (SHAMBERG DISEASE) Blood Transfusions History of Blood Disorders: No Adverse Reaction to a Blood Tr: No Family Medical History Significant Family History: Renal Disease (Father had renal disease) Family Medial History: Alcoholism 19 FATHER G8 SISTER G8 SISTER Arthritis 19 FATHER 19 MOTHER G8 SISTER G8 SISTER G8 SISTER G8 SISTER Cardiovascular disease 19 MOTHER Cataracts 19 FATHER 19 MOTHER Deafness or hearing loss 19 FATHER 19 MOTHER Dementia 19 MOTHER Drug abuse G8 BROTHER Fibrocystic disease of breast 19 MOTHER G8 SISTER G8 SISTER Headache disorder 19 FATHER 19 MOTHER G8 BROTHER G8 SISTER G8 SISTER G8 SISTER G8 SISTER Hypertension 19 FATHER Kidney disease 19 FATHER Psychosocial problem G8 BROTHER Respiratory disorder G8 SISTER G8 SISTER G8 SISTER G8 SISTER Review of Systems-General Constitutional: chills, diaphoresis, malaise; No weakness EENTM: No hearing loss, No ear pain, No eye pain, No vision loss Respiratory: cough, dyspnea on exertion, short of breath Cardiovascular: chest pain; No palpitations Gastrointestinal: abdominal pain, nausea, vomiting Genitourinary: dysuria, other (cloudy) Musculoskeletal: back pain, joint pain; No muscle cramps, No muscle weakness Skin: No lesions, No rash Psychiatric/Neurological: Denies Headache, Denies Weakness Other No history of bruising or bleeding disorder Physical Exam-General Problems Physical Exam Vital Signs Vital Signs - First Documented 07/20/19 17:38 Temp 36.7 Pulse 82 Resp 24 B/P (MAP) 151/91 (111) Pulse Ox 96 Capillary Refill : NONENONE General Appearance: mild distress, obese Neck: other (minimal tenderness) Respiratory: chest non-tender, lungs clear, normal breath sounds, no respiratory distress, no accessory muscle use Cardiovascular: regular rate, rhythm, no murmur Gastrointestinal: soft; No distended; tenderness (to palpation) Neurologic/Psychiatric: alert, oriented x 3 Skin: normal color, warm/dry Data Review Labs Laboratory Tests 07/20/19 17:45: White Blood Count 7.9, Red Blood Count 5.02, Hemoglobin 14.9, Hematocrit 45, Mean Corpuscular Volume 89, Mean Corpuscular Hemoglobin 30, Mean Corpuscular Hemoglobin Concent 33, Red Cell Distribution Width 15.9H, Platelet Count 237, Mean Platelet Volume 10.9H, Neutrophils (%) (Auto) 94H, Lymphocytes (%) (Auto) 5L, Monocytes (%) (Auto) 1, Eosinophils (%) (Auto) 0, Basophils (%) (Auto) 0, Neutrophils # (Auto) 7.4, Lymphocytes # (Auto) 0.4L, Monocytes # (Auto) 0.1, Eosinophils # (Auto) 0.0, Basophils # (Auto) 0.0, Neutrophils % (Manual) 95, Lymphocytes % (Manual) 4, Monocytes % (Manual) 1, Eosinophils % (Manual) 0, Basophils % (Manual) 0, Band Neutrophils 0, Anisocytosis SLIGHT, Prothrombin Time 13.2, INR Comment 1.0, Activated Partial Thromboplast Time 30, Sodium Level 137, Potassium Level 3.7, Chloride Level 103, Carbon Dioxide Level 20L, Anion Gap 14, Blood Urea Nitrogen 10, Creatinine 0.77, Estimat Glomerular Filtration Rate > 60, BUN/Creatinine Ratio 13, Glucose Level 208H, Calcium Level 9.8, Corrected Calcium 9.8, Magnesium Level 2.3, Total Bilirubin 5.5H, Aspartate Amino Transf (AST/SGOT) 247H, Alanine Aminotransferase (ALT/SGPT) 504H, Alkaline Phosphatase 274H, Myoglobin 59.0, Troponin I < 0.028, B-Type Natriuretic Peptide 48.3, Total Protein 7.5, Albumin 4.0, Amylase Level 1016H, Lipase 2150H, Acetaminophen Level < 10L, Serum Alcohol < 10 07/20/19 20:55: Urine Color YELLOW, Urine Clarity CLEAR, Urine pH 5.5, Urine Specific [place] 1.015L, Urine Protein NEGATIVE, Urine Glucose (UA) NEGATIVE, Urine Ketones 2+H, Urine Nitrite NEGATIVE, Urine Bilirubin 1+H, Urine Urobilinogen 1.0, Urine Leukocyte Esterase 1+H, Urine RBC (Auto) NEGATIVE, Urine RBC NONE, Urine WBC 2- 5, Urine Squamous Epithelial Cells 5-10, Urine Crystals NONE, Urine Bacteria TRACE, Urine Casts NONE, Urine Mucus NEGATIVE, Urine Culture Indicated NO 07/21/19 06:27: White Blood Count 8.3, Red Blood Count 4.33L, Hemoglobin 12.8, Hematocrit 39, Mean Corpuscular Volume 90, Mean Corpuscular Hemoglobin 30, Mean Corpuscular Hemoglobin Concent 33, Red Cell Distribution Width 15.9H, Platelet Count 191, Mean Platelet Volume 11.1H, Neutrophils (%) (Auto) 87H, Lymphocytes (%) (Auto) 8L, Monocytes (%) (Auto) 6, Eosinophils (%) (Auto) 0, Basophils (%) (Auto) 0, Neutrophils # (Auto) 7.2, Lymphocytes # (Auto) 0.6L, Monocytes # (Auto) 0.5, Eosinophils # (Auto) 0.0, Basophils # (Auto) 0.0, Sodium Level 138, Potassium Level 3.7, Chloride Level 107, Carbon Dioxide Level 20L, Anion Gap 11, Blood Urea Nitrogen 9, Creatinine 0.73, Estimat Glomerular Filtration Rate > 60, BUN/Creatinine Ratio 12, Glucose Level 161H, Calcium Level 8.8, Corrected C alcium 9.3, Total Bilirubin 2.8#H, Aspartate Amino Transf (AST/SGOT) 198H, Alanine Aminotransferase (ALT/SGPT) 404H, Alkaline Phosphatase 211H, Total Protein 6.2L, Albumin 3.4, Triglycerides Level 61, Cholesterol Level 144, LDL Cholesterol Direct 86, VLDL Cholesterol 12, HDL Cholesterol 40 Assessment/Plan Assessment/Plan Assessment/Plan Acute Pancreatitis chest/abdominal pain Nausea, vomiting back pain NPO and IV fluids. Pain control discontinue omeprazole and other medications that could cause pancreatitis Clinical Quality Measures AMI/AHF: ASA po Prior to arrival: No DVT/VTE Risk/Contraindication: Risk Factor Score Per Nursin RFS Level Per Nursing on Admit: 4+=Very High PRASHANTH ANDREWS DO 07/21/19 1332: History of Present Illness History of Present Illness Time Seen by Provider: 12:30 History of Present Illness When I spoke to pt she still had pain in her stomach that she rated as at least 6 out of 10. States it is not really getting better, but whatever pain med they switched her too has helped. She states she is not even that hungry. Allergies and Home Medications Allergies Coded Allergies: Iodinated Contrast Media (Verified Allergy, Severe, 07/20/19) Sulfa (Sulfonamide Antibiotics) (Unverified Allergy, Mild, 12/20/08) indomethacin (Unverified Allergy, Mild, 12/20/08) iodine (Unverified Allergy, Mild, 12/20/08) lansoprazole (Unverified Allergy, Mild, 12/20/08) latex (Unverified Allergy, Mild, 12/20/08) meperidine (Unverified Allergy, Mild, 12/20/08) paroxetine (Unverified Allergy, Mild, 12/20/08) ciprofloxacin (Verified Allergy, Unknown, 07/20/19) Uncoded Allergies: ANIMAL DANDER (Allergy, Mild, 12/20/08) TAPE (Allergy, Mild, 12/20/08) Home Medications Albuterol Sulfate 8.5 Gm Hfa.aer.ad, 2 PUFF IH Q4H PRN for SHORTNESS OF BREATH, (Reported) Aspirin 325 Mg Tablet, 325 MG PO BID PRN for HEADACHE, (Reported) Aspirin/Acetaminophen/Caffeine 1 Each Tablet, 1 TAB PO BID PRN for MIGRAINE, (Reported) Escitalopram Oxalate 20 Mg Tablet, 20 MG PO DAILY, (Reported) Lisinopril/Hydrochlorothiazide 1 Each Tablet, 1 TAB PO DAILY, (Reported) Montelukast Sodium 10 Mg Tab, 10 MG PO DAILY, (Reported) Omeprazole 20 Mg Capsule.dr, 20 MG PO DAILY, (Reported) Promethazine HCl 25 Mg Tablet, 25 MG PO Q4H PRN for NAUSEA/VOMITING Prescribed by: CONNIE RANDLE on 04/26/15 1410 Patient Home Medication List Home Medication List Reviewed: Yes Past Nlccdix-Bjpljd-Bawpcx Hx Patient Social History Alcohol Use: Rarely Uses Recreational Drug Use: No Surgeries History of Surgeries: Yes Respiratory History of Respiratory Disorde: No Genitourinary History of Genitourinary Disor: Yes Genitourinary Disorders: Bladder Infection Psychosocial History of Psychiatric Problem: Yes Behavioral Health Disorders: Anxiety Integumentary History of Skin or Integumenta: No Family Medical History Significant Family History: CAD Under 55 Years Old, Hypertension, Renal Disease (Father had renal disease) Family Medial History: Alcoholism 19 FATHER G8 SISTER G8 SISTER Arthritis 19 FATHER 19 MOTHER G8 SISTER G8 SISTER G8 SISTER G8 SISTER Cardiovascular disease 19 MOTHER Cataracts 19 FATHER 19 MOTHER Deafness or hearing loss 19 FATHER 19 MOTHER Dementia 19 MOTHER Drug abuse G8 BROTHER Fibrocystic disease of breast 19 MOTHER G8 SISTER G8 SISTER Headache disorder 19 FATHER 19 MOTHER G8 BROTHER G8 SISTER G8 SISTER G8 SISTER G8 SISTER Hypertension 19 FATHER Kidney disease 19 FATHER Psychosocial problem G8 BROTHER Respiratory disorder G8 SISTER G8 SISTER G8 SISTER G8 SISTER Physical Exam-General Problems Physical Exam General Appearance: mild distress, obese Eyes: Bilateral Eye PERRL, Bilateral Eye EOMI HEENT: pharynx normal; No scleral icterus (R), No scleral icterus (L) Neck: supple; No thyromegaly; other (minimal tenderness) Gastrointestinal: distended (mild according to pt), tenderness (to palpation diffusely, but seems to be the worst epigastric) Back: no CVA tenderness Extremities: no pedal edema, no calf tenderness, normal capillary refill Neurologic/Psychiatric: concreting supervisor II-XII nml as tested, alert, oriented x 3 Lymphatic: no adenopathy (neck, axilla or groin) Assessment/Plan Assessment/Plan Assessment/Plan Pt is NPO, will wait for Amylase and Lipase to start trending down. Once enzy mes are getting better and she has no abdominal pain, then can start diet. Check labs in am, continue IVF at 200ml/hr, pain control and anti-emetics as needed. Supervisory-Addendum Brief Verification & Attestation Participated in pt care: history, MDM, physical Personally performed: exam, history, MDM Care discussed with: Medical Student Procedures: n/a Verification and Attestation of Medical Student E/M Service A medical student performed and documented this service in my presence. I reviewed and verified all information documented by the medical student and made modifications to such information, when appropriate. I personally performed the physical exam and medical decision making. Prashanth Andrews, Jul 21, 2019,13:32 MIGUEL JI Jul 21, 2019 12:35 PRASHANTH ANDREWS DO Jul 21, 2019 13:32
--- NOTE | 2019-07-21 13:31 | History & Physical-Hospitalist ---
History of Present Illness HPI/Chief Complaint CC: Abdominal pain HPI: This is a 64yoWF clinic patient of Lance Alas in [facility] who recently was treated for UTI with FQ who presents to the ER with abdominal pain and N/V. W/U revealed acute pancreatitis and CT scan was reviewed. Patient was placed on Dilaudid and IVF and Dr Andrews was consulted. Currently she is feeling better but still with abdominal pain but relieved by pain meds. Patient placed on DVT PPx and PPI. Source: patient, RN/MD, old records Exam Limitations: no limitations Date Seen 07/21/19 Time Seen by a Provider: 12:00 Attending Physician Saniya Young DO PCP No,Local Physician Referring Physician Date of Admission Jul 20, 2019 at 21:00 Home Medications & Allergies Home Medications Reviewed patient Home Medication Reconciliation performed by pharmacy medication reconciliations precision lens technician and/or nursing. Patients Allergies have been reviewed. Allergies Allergies Coded Allergies Iodinated Contrast Media (Verified Allergy, Severe, 07/20/19) Sulfa (Sulfonamide Antibiotics) (Unverified Allergy, Mild, 12/20/08) indomethacin (Unverified Allergy, Mild, 12/20/08) iodine (Unverified Allergy, Mild, 12/20/08) lansoprazole (Unverified Allergy, Mild, 12/20/08) latex (Unverified Allergy, Mild, 12/20/08) meperidine (Unverified Allergy, Mild, 12/20/08) paroxetine (Unverified Allergy, Mild, 12/20/08) ciprofloxacin (Verified Allergy, Unknown, 07/20/19) Uncoded Allergies ANIMAL DANDER ( Allergy, Mild, 12/20/08) TAPE ( Allergy, Mild, 12/20/08) Past Kmtzptm-Wkoroo-Yonqoa Hx Past Med/Social Hx: Reviewed Nursing Past Med/Soc Hx, Reviewed and Corrections made Patient Social History Marrital Status: single Employed/Student: retired Alcohol Use: Rarely Uses Recreational Drug Use: No Smoking Status: Never a Smoker Recent Foreign Travel: No Contact w/other who traveled: No Recent Hopitalizations: No Recent Infectious Disease Expo: Yes Immunizations Up To Date Tetanus Booster (TDap): Unknown Pediatric: Yes Date of Influenza Vaccine: Mar 26, 2019 Past Medical History Surgeries: Appendectomy, Gallbladder, Hysterectomy, Joint Replacement (Bilateral knees), Lumpectomy Currently Using CPAP: No Currently Using BIPAP: No Cardiac: Hypertension Reproductive: No Sexually Transmitted Disease: No HIV/AIDS: No Female Reproductive Disorders: Denies Genitourinary: Kidney Stones Gastrointestinal: Gastroesophageal Reflux, Diverticulosis, Pancreatitis Musculoskeletal: Arthritis Endocrine: Diabetes, Non-Insulin dep Loss of Vision: Denies Hearing Impairment: Denies History of Blood Disorders: No Adverse Reaction to Blood Wilkinson: No Family History Alcoholism 19 FATHER G8 SISTER G8 SISTER Arthritis 19 FATHER 19 MOTHER G8 SISTER G8 SISTER G8 SISTER G8 SISTER Cardiovascular disease 19 MOTHER Cataracts 19 FATHER 19 MOTHER Deafness or hearing loss 19 FATHER 19 MOTHER Dementia 19 MOTHER Drug abuse G8 BROTHER Fibrocystic disease of breast 19 MOTHER G8 SISTER G8 SISTER Headache disorder 19 FATHER 19 MOTHER G8 BROTHER G8 SISTER G8 SISTER G8 SISTER G8 SISTER Hypertension 19 FATHER Kidney disease 19 FATHER Psychosocial problem G8 BROTHER Respiratory disorder G8 SISTER G8 SISTER G8 SISTER G8 SISTER Renal Disease (Father had renal disease) Review of Systems Constitutional: see HPI Gastrointestinal: abdominal pain, loss of appetite, nausea, vomiting Physical Exam Physical Exam Vital Signs Vital Signs - First Documented 07/20/19 17:38 Temp 36.7 Pulse 82 Resp 24 B/P (MAP) 151/91 (111) Pulse Ox 96 Capillary Refill : NONENONE Height, Weight, BMI Height: 5'4.00" Weight: 300lbs. 0.0oz. [id number]; 52.64 BMI Method:Stated General Appearance: Anxious, Chronically ill, Obese Eyes: Right Eye Normal Inspection, Right Eye PERRL HEENT: PERRL/EOMI, Normal ENT Inspection, Pharynx Normal, Moist Mucous Membranes Neck: Full Range of Motion, Normal Inspection, Non Tender Respiratory: Chest Non Tender, Lungs Clear, Normal Breath Sounds, No Accessory Muscle Use, No Respiratory Distress Cardiovascular: Regular Rate, Rhythm, No Edema, No Gallop, No JVD, No Murmur, Normal Peripheral Pulses Gastrointestinal: Normal Bowel Sounds, No Organomegaly, No Pulsatile Mass, Ten derness Back: Normal Inspection, No CVA Tenderness, No Vertebral Tenderness Extremity: Normal Capillary Refill, Normal Inspection, Normal Range of Motion, Non Tender, No Calf Tenderness, No Pedal Edema Neurologic/Psychiatric: Alert, Oriented x3, No Motor/Sensory Deficits, Normal Mood/Affect Skin: Normal Color, Warm/Dry Lymphatic: No Adenopathy Results Results/Procedures Labs Laboratory Tests 07/20/19 17:45 07/21/19 06:27 Patient resulted labs reviewed. Assessment/Plan Admission Diagnosis Assessment: Acute pancreatitis GERD Recent UTI Obesity HTN Plan: IV Dilaudid IVF NPO Lovenox PPI Admission Status: Inpatient Order (span 2 midnights) Reason for Inpatient Admission: pancreatitis will require 3 days Diagnosis/Problems Diagnosis/Problems (1) Acute pancreatitis Status: Acute Qualifiers: Pancreatitis type: idiopathic Acute pancreatitis complication: no infection or necrosis Qualified Codes: K85.00 - Idiopathic acute pancreatitis without necrosis or infection (2) UTI (urinary tract infection) Status: Acute Qualifiers: Urinary tract infection type: acute cystitis Hematuria presence: with hematuria Qualified Codes: N30.01 - Acute cystitis with hematuria Clinical Quality Measures AMI/AHF: ASA po Prior to arrival: No DVT/VTE Risk/Contraindication: Risk Factor Score Per Nursin RFS Level Per Nursing on Admit: 4+=Very High SANIYA YOUNG DO Jul 21, 2019 13:31
[2019-07-21 16:00] VITALS: BP 135/61
[2019-07-21] MEDS ORDERED: ENOXAPARIN 40 MG/0.4 ML (LOVENOX) SYR SC SCH (19:00)
[2019-07-21 20:00] VITALS: BP 140/63
[2019-07-21] MEDS: cefTRIAXone 1,000 MG/SWFI 10 ML IV PUSH IV SCH ×2 (22:40)
[2019-07-22] VITALS (7 sets, daily range): BP systolic 122–148; BP diastolic 60–79
[2019-07-22] MEDS: LACTATED RINGERS 1,000 ML IV SCH ×4 (04:09→20:45)
[2019-07-22] MEDS: HYDROmorphone 2 MG/ML VIAL (DILAUDID) IV PRN ×4 (04:22→20:47)
[2019-07-22] MEDS: ONDANSETRON 4 MG/2 ML (SDV) Z0FRAN IV PRN ×3 (04:59→12:39)
[2019-07-22 08:01] LABS: BASOPHILS % (AUTO) 0 % (0-10); EOSINOPHILS % (AUTO) 0 % (0-10); HEMATOCRIT 38 % (35-52); HEMOGLOBIN 12.2 G/DL (11.5-16.0); LYMPHOCYTES # (AUTO) 0.7 X 10^3 (1.0-4.0); LYMPHOCYTES % (AUTO) 9 % (12-44); MEAN CORPUSCULAR HEMOGLOBIN 29 PG (25-34); MEAN CORPUSCULAR HGB CONC 32 G/DL (32-36); MEAN CORPUSCULAR VOLUME 92 FL (80-99); MEAN PLATELET VOLUME 10.8 FL (7.4-10.4); MONOCYTES # (AUTO) 0.6 X 10^3 (0.0-1.0); MONOCYTES % (AUTO) 8 % (0-12); NEUTROPHILS # (AUTO) 6.2 X 10^3 (1.8-7.8); NEUTROPHILS % (AUTO) 82 % (42-75); PLATELET COUNT 163 10^3/uL (130-400); RED CELL DISTRIBUTION WIDTH 16.5 % (10.0-14.5); WHITE BLOOD COUNT 7.6 10^3/uL (4.3-11.0)
--- NOTE | 2019-07-22 08:09 | Progress Note - Surgery ---
[facility] 07/22/19 0809: Subjective Date Seen by a Provider: Jul 22, 2019 Time Seen by a Provider: 07:05 Subjective/Events-last exam Patient states that she was doing well yesterday evening, but last night she developed nausea and was dry heaving whenever she would get up to use the restroom. Patient also developed a headache last night. Patient is having minimal abdominal pain. Patient is passing gas. Review of Systems General: No Chills, No Other (fevers) HEENT: Head Aches; No Eye Pain Pulmonary: No Dyspnea, No Cough Cardiovascular: No: Chest Pain, Palpitations Gastrointestinal: Nausea, Abdominal Pain; No: Vomiting Genitourinary: No Dysuria; Other (Cloudy on inspection) Objective Exam Vital Signs Date Time Temp Pulse Resp B/P (MAP) Pulse Ox O2 Delivery O2 Flow Rate FiO2 07/22/19 04:45 36.2 61 18 130/60 (83) 93 Room Air 07/22/19 00:00 36.3 88 18 132/62 (85) 92 Room Air 07/21/19 20:00 35.9 58 20 140/63 (88) 95 Room Air 07/21/19 20:00 Room Air 07/21/19 16:00 35.7 60 20 135/61 (85) 93 Room Air 07/21/19 12:00 36.0 56 20 134/63 (86) 92 Room Air I & O 07/22/19 07:00 Intake Total 5010 ml Balance 5010 ml Capillary Refill : NONELess Than 3 Seconds General Appearance: Anxious, Chronically ill, Obese Neck: Other (Minimal Tenderness) Respiratory: Chest Non Tender, Lungs Clear, Normal Breath Sounds, No Accessory Muscle Use, No Respiratory Distress Cardiovascular: Regular Rate, Rhythm, Normal Peripheral Pulses (2/4 radial pulse Bilaterally) Gastrointestinal: distended (Distention appears to be better), guarding (to palpation in the Epigastric and LUQ. ), tenderness (to palpation in the epigastric and LUQ. ) Extremity: No Calf Tenderness, No Pedal Edema Neurologic/Psychiatric: Alert, Oriented x3 Skin: Normal Color, Warm/Dry Results Lab Laboratory Tests 07/22/19 07:55: Assessment/Plan Assessment/Plan Assessment/Plan Continue NPO and Pain control Continue zofran for nausea Clinical Quality Measures AMI/AHF: ASA po Prior to arrival: No DVT/VTE Risk/Contraindication: Risk Factor Score Per Nursin RFS Level Per Nursing on Admit: 4+=Very High ALFREDO ANDREWS DO 07/23/19 0924: Subjective Time Seen by a Provider: 15:48 Subjective/Events-last exam Pt seen and examined; still has abdominal pain, bloating and her main complaint is severe nausea. Pt denies BM's. Review of Systems General: No Chills, No Night Sweats Pulmonary: No Dyspnea, No Cough Cardiovascular: No: Chest Pain, Palpitations Gastrointestinal: Nausea, Vomiting (dry heaves), Abdominal Pain Objective Exam General Appearance: Anxious, Obese Respiratory: Lungs Clear, Normal Breath Sounds, No Accessory Muscle Use Cardiovascular: Regular Rate, Rhythm, No Murmur Gastrointestinal: soft, distended (Distention appears to be better), guarding (to palpation in the Epigastric and LUQ. ), tenderness (to palpation in the epigastric and LUQ. ) Assessment/Plan Assessment/Plan Assessment/Plan Pancreatitis Continue NPO, pain control, will switch to Phenergan to see if this helps with nausea. Enzymes trending down, but pt still has abdominal pain. Supervisory-Addendum Brief Verification & Attestation Participated in pt care: history, MDM, physical Personally performed: exam, history, MDM Care discussed with: Medical Student Procedures: n/a Verification and Attestation of Medical Student E/M Service A medical student performed and documented this service in my presence. I reviewed and verified all information documented by the medical student and made modifications to such information, when appropriate. I personally performed the physical exam and medical decision making. Alfredo Andrews, Jul 23, 2019,09:24 MIGUEL JI Jul 22, 2019 08:09 ALFREDO ANDREWS DO Jul 23, 2019 09:24
[2019-07-22 08:23] LABS: ALANINE AMINOTRANSFERASE 294 U/L (0-55); ALBUMIN 3.3 GM/DL (3.2-4.5); ALKALINE PHOSPHATASE 179 U/L (40-136); AMYLASE 74 U/L (25-125); BILIRUBIN,TOTAL 1.4 MG/DL (0.1-1.0); BUN/CREATININE RATIO 12; CALCIUM 8.7 MG/DL (8.5-10.1); CARBON DIOXIDE 24 MMOL/L (21-32); CHLORIDE 105 MMOL/L (98-107); CREATININE SERUM 0.74 MG/DL (0.60-1.30); GFR ESTIMATED > 60; GLUCOSE 112 MG/DL (70-105); LIPASE 69 U/L (8-78); POTASSIUM 3.7 MMOL/L (3.6-5.0); SODIUM 138 MMOL/L (135-145)
[2019-07-22] MEDS: FAMOTIDINE 20MG/2ML IV (PEPCID) IVP SCH ×2 (09:14→20:47)
[2019-07-22] MEDS: PANTOPRAZOLE 40 MG (PROTONIX) VIAL IV SCH ×2 (09:14→20:47)
[2019-07-22] MEDS: ENOXAPARIN 60 MG/0.6 ML (LOVENOX) SYR SC SCH (13:53)
--- NOTE | 2019-07-22 14:44 | Progress Note - Hospitalist ---
ZACHARY FRIAS, MEDICAL STUDENT 07/22/19 1444: Subjective HPI/CC On Admission CC: Abdominal pain HPI: This is a 64yoWF clinic patient of Lance Alas in [facility] who recently was treated for UTI with FQ who presents to the ER with abdominal pain and N/V. W/U revealed acute pancreatitis and CT scan was reviewed. Patient was placed on Dilaudid and IVF and Dr Andrews was consulted. Currently she is feeling better but still with abdominal pain but relieved by pain meds. Patient placed on DVT PPx and PPI. Subjective/Events-last exam Patients Lipase trending down LFTs trending down Patient described increased pain this morning but received PRN meds and is now doing better Nausea improved Objective Exam Vital Signs Vital Signs Date Time Temp Pulse Resp B/P (MAP) Pulse Ox O2 Delivery O2 Flow Rate FiO2 07/22/19 12:00 36.6 58 20 148/65 (92) 91 Room Air Capillary Refill : NONELess Than 3 Seconds General Appearance: Obese, Severe Distress HEENT: PERRL/EOMI, Normal ENT Inspection, Pharynx Normal Neck: Full Range of Motion, Normal Inspection, Non Tender, Supple Respiratory: Chest Non Tender, Lungs Clear, Normal Breath Sounds, No Accessory Muscle Use Cardiovascular: Regular Rate, Rhythm, No Edema, No Gallop, No JVD, No Murmur Gastrointestinal: Normal Bowel Sounds, No Organomegaly, Soft Rectal: Deferred Back: Normal Inspection, No Vertebral Tenderness Extremity: Normal Capillary Refill, Normal Inspection, Normal Range of Motion Neurologic/Psychiatric: Alert, Oriented x3, No Motor/Sensory Deficits, Normal Mood/Affect Reflexes: 2+ Bicep (R), 2+ Bicep (L), 2+ Tricep (R), 2+ Tricep (L), 2+ Knee (R), 2+ Knee (L), 2+ Ankle (R), 2+ Ankle (L) Skin: Normal Color, Warm/Dry Lymphatic: No Adenopathy Results/Procedures Lab Laboratory Tests 07/22/19 07:55 Patient resulted labs reviewed. Assessment/Plan Assessment and Plan Assess & Plan/Chief Complaint 64 YO F who presents with acute pancreatitis diagnosed after the patient presented with abdominal pain and CT scan showed mild billary duct dilation. Patient is currently receiving fluids, pain and nausea management until LFTs and Lipase return to normal. PRN Pain and Nausea medication Continue fluids Monitor LFTs and Lipase Clinical Quality Measures AMI/AHF: ASA po Prior to arrival: No DVT/VTE Risk/Contraindication: Risk Factor Score Per Nursin RFS Level Per Nursing on Admit: 4+=Very High SANIYA YOUNG DO 07/22/192116: Subjective HPI/CC On Admission Date Seen by Provider: Jul 22, 2019 Time Seen by Provider: 10:00 Subjective/Events-last exam Nausea continues Pain is an issue May ultimately need NG tube if the nausea continues Overall very difficult to cope with abdominal pain although lipase is now normal Review of Systems Gastrointestinal: Nausea, Abdominal Pain Objective Exam General Appearance: No Apparent Distress, WD/WN, Anxious, Chronically ill, Obese Respiratory: Chest Non Tender, Lungs Clear, Normal Breath Sounds, No Accessory Muscle Use, No Respiratory Distress Cardiovascular: Regular Rate, Rhythm, No Edema, No Gallop, No JVD, No Murmur, Normal Peripheral Pulses Neurologic/Psychiatric: Alert, Oriented x3, No Motor/Sensory Deficits, Normal Mood/Affect Assessment/Plan Assessment and Plan Assess & Plan/Chief Complaint Acute pancreatitis Nausea Ileus Supervisory-Addendum Brief Verification & Attestation Participated in pt care: history, MDM, physical Personally performed: exam, history, MDM, supervision of care Care discussed with: Medical Student Procedures: n/a Results interpretation: Verified all documentation Verification and Attestation of Medical Student E/M Service A medical student performed and documented this service in my presence. I r eviewed and verified all information documented by the medical student and made modifications to such information, when appropriate. I personally performed the physical exam and medical decision making. Saniya Young, Jul 22, 2019,21:17 ZACHARY FRIAS, MEDICAL STUDENT Jul 22, 2019 14:44 SANIYA YOUNG DO Jul 22, 2019 21:17
[2019-07-22] MEDS: PROMETHAZINE INJ 25 MG/ML (PHENERGAN) AMP IVP PRN (17:00)
[2019-07-22] MEDS: cefTRIAXone 1,000 MG/SWFI 10 ML IV PUSH IV SCH ×2 (22:28)
[2019-07-23] VITALS (7 sets, daily range): BP systolic 128–168; BP diastolic 61–81
[2019-07-23] MEDS: LACTATED RINGERS 1,000 ML IV SCH ×4 (00:24→20:00)
[2019-07-23] MEDS: ENOXAPARIN 60 MG/0.6 ML (LOVENOX) SYR SC SCH ×2 (00:24→14:06)
[2019-07-23] MEDS: HYDROmorphone 2 MG/ML VIAL (DILAUDID) IV PRN ×3 (01:56→09:06)
[2019-07-23 05:50] LABS: BASOPHILS % (AUTO) 0 % (0-10); EOSINOPHILS % (AUTO) 0 % (0-10); HEMATOCRIT 36 % (35-52); HEMOGLOBIN 11.6 G/DL (11.5-16.0); LYMPHOCYTES # (AUTO) 0.8 X 10^3 (1.0-4.0); LYMPHOCYTES % (AUTO) 11 % (12-44); MEAN CORPUSCULAR HEMOGLOBIN 30 PG (25-34); MEAN CORPUSCULAR HGB CONC 32 G/DL (32-36); MEAN CORPUSCULAR VOLUME 93 FL (80-99); MONOCYTES # (AUTO) 0.7 X 10^3 (0.0-1.0); MONOCYTES % (AUTO) 9 % (0-12); NEUTROPHILS # (AUTO) 5.7 X 10^3 (1.8-7.8); NEUTROPHILS % (AUTO) 80 % (42-75); PLATELET COUNT 146 10^3/uL (130-400); RED CELL DISTRIBUTION WIDTH 16.1 % (10.0-14.5); WHITE BLOOD COUNT 7.2 10^3/uL (4.3-11.0)
[2019-07-23 06:08] LABS: ALANINE AMINOTRANSFERASE 216 U/L (0-55); ALBUMIN 3.1 GM/DL (3.2-4.5); ALKALINE PHOSPHATASE 152 U/L (40-136); AMYLASE 32 U/L (25-125); BILIRUBIN,TOTAL 1.1 MG/DL (0.1-1.0); BUN/CREATININE RATIO 11; CALCIUM 8.6 MG/DL (8.5-10.1); CARBON DIOXIDE 24 MMOL/L (21-32); CHLORIDE 103 MMOL/L (98-107); GFR ESTIMATED > 60; GLUCOSE 101 MG/DL (70-105); LIPASE 32 U/L (8-78); POTASSIUM 3.5 MMOL/L (3.6-5.0); SODIUM 139 MMOL/L (135-145)
[2019-07-23] MEDS ORDERED: MONT10TA24 PO (08:50)
[2019-07-23] MEDS ORDERED: LISI10TA2 PO (08:50)
[2019-07-23] MEDS ORDERED: OMEP-280 PO (08:50)
[2019-07-23] MEDS ORDERED: ESCI10TA55 PO (08:50)
[2019-07-23] MEDS ORDERED: LORA10TA76 PO (08:53)
[2019-07-23] MEDS ORDERED: CALC600T12 PO (08:53)
[2019-07-23] MEDS ORDERED: BIOT10TA PO (08:53)
[2019-07-23] MEDS ORDERED: MELO15TA39 PO (08:53)
[2019-07-23] MEDS ORDERED: MAGN250T2 PO (08:53)
[2019-07-23] MEDS ORDERED: ASCO100T6 PO (08:53)
[2019-07-23] MEDS ORDERED: MULT1TAB69 PO (08:53)
[2019-07-23] MEDS: PANTOPRAZOLE 40 MG (PROTONIX) VIAL IV SCH ×2 (09:05→20:01)
[2019-07-23] MEDS: ONDANSETRON 4 MG/2 ML (SDV) Z0FRAN IV PRN (09:06)
[2019-07-23] MEDS: FAMOTIDINE 20MG/2ML IV (PEPCID) IVP SCH ×2 (09:06→20:01)
--- NOTE | 2019-07-23 09:18 | NUR ---
SPOKE WITH THE PT WELL CALLING [facility] TO COMPLETE THE MED REC. PT WAS ABLE TO NAME ALL HER MEDS AND HOW/WHEN SHE TAKES EACH. ESCITALOPRAM 10MG- THE DIRECTIONS SAY " 1& TABS DAILY- HOWEVER THE PT SAYS SHE ONLY TAKES 1 TAB DAILY THE FOLLOWING ARE FILL DATES FROM [facility]: 04-23-2019 ALBUTEROL HFA #1 04-29-2019 MELOXICAM 15MG #90/90DS 04-29-2019 OMEPRAZOLE 20MG #90/90DS 04-29-2019 MONTELUKAST 10MG #90/90DS 04-29-2019 LISINOPRIL 10MG #90/90DS 04-29-2019 ESCITALOPRAM 10MG #135/135DS (SEE NOTE ABOVE) OTC MEDS: MTV VIT C MAGNESIUM CALCIUM CLARITIN BIOTIN Addendum: 07/23/19 at 1016 by KEAGAN NIELSEN boat washer PICKED UP CIPRO 500MG #14 ON 07-18-2019 NITROFURANTOIN MONO 100MG #14 & FAMOTIDINE 40MG #20 WERE PICKED UP ON 07-20-2019 BUT WERE NOT STARTED YET (SHE WAS SEEN IN THE ED AROUND 1700 AND WAS ADMITTED AFTER) I DID NOT INCLUDE THESE ON THE MED REC
--- NOTE | 2019-07-23 09:21 | Progress Note - Surgery ---
Subjective Date Seen by a Provider: Jul 23, 2019 Time Seen by a Provider: 08:20 Subjective/Events-last exam Patient is still having nausea and headaches. Patient also reports being lightheaded when walkingto the restroom but does not report increase in heart rate during these episodes. Patient also continues to have abdominal pain. Dr. Andrews Pt seen and examined at 11:39, she is mildly tearful because she still has abdominal pain, bloating and nausea. She thinks the nausea is better, but mostly when they give Phenergan; "Zofran doesn't help at all". She did walk once today. She would like to try some liquids. Review of Systems General: Chills; No Other (fevers) Pulmonary: No Dyspnea, No Cough Cardiovascular: No: Chest Pain, Palpitations Gastrointestinal: Nausea, Abdominal Pain; No: Vomiting Genitourinary: Other (Dark urine) Objective Exam Vital Signs Date Time Temp Pulse Resp B/P (MAP) Pulse Ox O2 Delivery O2 Flow Rate FiO2 07/23/19 08:00 36.5 60 20 165/70 (101) 94 Room Air 07/23/19 04:00 36.3 69 20 134/61 (85) 93 Room Air 07/23/19 00:00 37.2 70 20 128/75 (92) 93 Room Air 07/22/19 20:45 Room Air 07/22/19 20:22 37.0 60 18 122/68 (86) 92 Room Air 07/22/19 17:11 36.8 63 20 131/79 (96) 94 Room Air 07/22/19 16:00 36.8 63 20 131/79 (96) 94 Room Air 07/22/19 12:00 36.6 58 20 148/65 (92) 91 Room Air I & O 07/23/19 07:00 Intake Total 1010 ml Output Total 875 ml Balance 135 ml Capillary Refill : NONELess Than 3 Seconds General Appearance: Chronically ill, Mild Distress, Obese Respiratory: Chest Non Tender, Lungs Clear, Normal Breath Sounds, No Accessory Muscle Use, No Respiratory Distress Cardiovascular: Regular Rate, Rhythm, No Murmur, Normal Peripheral Pulses (2/4 radial pulse bilaterally) Gastrointestinal: guarding (to palpation in the Epigastric and LUQ. ), tenderness (to palpation in the epigastric and LUQ. ) Neurologic/Psychiatric: Alert, Oriented x3 Skin: Normal Color, Warm/Dry Results Lab Laboratory Tests 07/23/19 05:21: White Blood Count 7.2, Red Blood Count 3.90L, Hemoglobin 11.6, Hematocrit 36, Mean Corpuscular Volume 93, Mean Corpuscular Hemoglobin 30, Mean Corpuscular Hemoglobin Concent 32, Red Cell Distribution Width 16.1H, Platelet Count 146, Mean Platelet Volume 11.0H, Neutrophils (%) (Auto) 80H, Lymphocytes (%) (Auto) 11L, Monocytes (%) (Auto) 9, Eosinophils (%) (Auto) 0, Basophils (%) (Auto) 0, Neutrophils # (Auto) 5.7, Lymphocytes # (Auto) 0.8L, Monocytes # (Auto) 0.7, Eosinophils # (Auto) 0.0, Basophils # (Auto) 0.0, Sodium Level 139, Potassium Level 3.5L, Chloride Level 103, Carbon Dioxide Level 24, Anion Gap 12, Blood Urea Nitrogen 8, Creatinine 0.70, Estimat Glomerular Filtration Rate > 60, BUN/Creatinine Ratio 11, Glucose Level 101, Calcium Level 8.6, Corrected Calcium 9.3, Total Bilirubin 1.1H, Aspartate Amino Transf (AST/SGOT) 65H, Alanine Aminotransferase (ALT/SGPT) 216H, Alkaline Phosphatase 152H, Total Protein 6.0L, Albumin 3.1L, Amylase Level 32, Lipase 32 Assessment/Plan Assessment/Plan Assessment/Plan Headache, Nausea Lightheadedness. Patient reports that Phenergan is working much better and would like to continue with the same medication. Pancreatitis Intractable N/V Nausea could be from her pain meds; will d/c Fentanyl and Dilaudid and start Toradol. Will also d/c Zofran and have nurse use Phenergan. Pt will be started on sips of liquids; she wants coffee, water and gatorade...all of those are ok. Pt told she has to sit up more and ambulate more. Hopefully meds changes will help, it could also be her ABX; would try to stop that as soon as UTI is treated. Clinical Quality Measures AMI/AHF: ASA po Prior to arrival: No DVT/VTE Risk/Contraindication: Risk Factor Score Per Nursin RFS Level Per Nursing on Admit: 4+=Very High Supervisory-Addendum Brief Verification & Attestation Participated in pt care: history, MDM, physical Personally performed: exam, history, MDM Care discussed with: Medical Student Procedures: n/a Verification and Attestation of Medical Student E/M Service A medical student performed and documented this service in my presence. I reviewed and verified all information documented by the medical student and made modifications to such information, when appropriate. I personally performed the physical exam and medical decision making. Alfredo Andrews, Jul 23, 2019,14:33 MIGUEL JI Jul 23, 2019 09:21 ALFREDO ANDREWS DO Jul 23, 2019 14:34
[2019-07-23] MEDS ORDERED: CIPR500T4 PO (10:11)
--- NOTE | 2019-07-23 12:10 | Progress Note - Hospitalist ---
ZACHARY FRIAS, MEDICAL STUDENT 07/23/19 1210: Subjective HPI/CC On Admission CC: Abdominal pain HPI: This is a 64yoWF clinic patient of Lance Alas in [facility] who recently was treated for UTI with FQ who presents to the ER with abdominal pain and N/V. W/U revealed acute pancreatitis and CT scan was reviewed. Patient was placed on Dilaudid and IVF and Dr Andrews was consulted. Currently she is feeling better but still with abdominal pain but relieved by pain meds. Patient placed on DVT PPx and PPI. Subjective/Events-last exam Patient's Lipase has normalized Still complaining of pain despite PRN meds Objective Exam Vital Signs Vital Signs Date Time Temp Pulse Resp B/P (MAP) Pulse Ox O2 Delivery O2 Flow Rate FiO2 07/23/19 08:00 Room Air 07/23/19 08:00 36.5 60 20 165/70 (101) 94 Capillary Refill : NONELess Than 3 Seconds General Appearance: Mild Distress HEENT: PERRL/EOMI, TMs Normal, Normal ENT Inspection, Pharynx Normal Neck: Full Range of Motion, Normal Inspection, Non Tender, Supple Respiratory: Chest Non Tender, Lungs Clear, Normal Breath Sounds Cardiovascular: Regular Rate, Rhythm, No Gallop, No JVD Gastrointestinal: Normal Bowel Sounds, No Organomegaly Rectal: Deferred Back: Normal Inspection, No Vertebral Tenderness Extremity: Normal Inspection, Normal Range of Motion Neurologic/Psychiatric: Alert, Oriented x3, No Motor/Sensory Deficits, Normal Mood/Affect, hoop rolls 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 Assessment/Plan Assessment and Plan Assess & Plan/Chief Complaint 64 YO F who presents with acute pancreatitis diagnosed after the patient presented with abdominal pain and CT scan showed mild billary duct dilation. Patient is currently receiving fluids, pain and nausea management until LFTs and Lipase return to normal. PRN Pain and Nausea medication Continue fluids Monitor LFTs, Lipase has returned to normal Will start diet as patient tolerates - currently no appetite Clinical Quality Measures AMI/AHF: ASA po Prior to arrival: No DVT/VTE Risk/Contraindication: Risk Factor Score Per Nursin RFS Level Per Nursing on Admit: 4+=Very High SANIYA YOUNG DO 07/23/192: Subjective HPI/CC On Admission Date Seen by Provider: Jul 23, 2019 Time Seen by Provider: 09:30 Subjective/Events-last exam Pt still with abdominal pain and nausea. Liver enzymes much improved. Amylase and lipase are normal for the second time in a row. Will have PT and OT evaluate to get her out of bed. Pt appears to have difficulty coping. Review of Systems Gastrointestinal: Nausea, Abdominal Pain Objective Exam General Appearance: WD/WN, Mild Distress, Obese Respiratory: Chest Non Tender, Lungs Clear, Normal Breath Sounds, No Accessory Muscle Use, No Respiratory Distress Cardiovascular: Regular Rate, Rhythm, No Edema, No Gallop, No JVD, No Murmur, Normal Peripheral Pulses Assessment/Plan Assessment and Plan Assess & Plan/Chief Complaint PT/OT Anti-emetics Ambulate Diagnosis/Problems Diagnosis/Problems (1) Acute pancreatitis Status: Acute Qualifiers: Qualified Codes: K85.00 - Idiopathic acute pancreatitis without necrosis or infection Supervisory-Addendum Brief Verification & Attestation Participated in pt care: history, MDM, physical Personally performed: exam, history, MDM, supervision of care Care discussed with: Medical Student Procedures: n/a Results interpretation: Verified all documentation Verification and Attestation of Medical Student E/M Service A medical student performed and documented this service in my presence. I reviewed and verified all information documented by the medical student and made modifications to such information, when appropriate. I personally performed the physical exam and medical decision making. Saniya Young, Jul 23, 2019,21:01 ZACHARY FRIAS, MEDICAL STUDENT Jul 23, 2019 12:10 SANIYA YOUNG DO Jul 23, 2019 21:02
--- NOTE | 2019-07-23 13:27 | Occupational Therapy Eval ---
OT Evaluation-General/PLF Medical Diagnosis Admission Date Jul 21, 2019 at 10:58 Medical Diagnosis: abdominal pain/ UTI Onset Date: Jul 23, 2019 Therapy Diagnosis Therapy Diagnosis: Decreased ADL function Height/Weight Height (Feet): 5 Height (Inches): 4.00 Weight (Pounds): 300 Weight (Ounces): 0.0 Precautions Precautions/Isolations: Standard Precautions Safety Interventions: None Weight Bear Status Weight Bearing Restriction: Weight Bearing/Tolerated Referral Physician: Saniya Polanco DO Referral Reason: Activity Tolerance, Self Care, Evaluation/Treatment, Strengthening/ROM Medical History Additional Medical History HTN, BLE TKAs, lumpectomy, NID DM, diverticulitis, pancreatitis, gastroesophageal reflux, asthma Current History Pt experienced abdominal pain/ UTI Reviewed History: Yes Social History Home: Single Level Current Living Status: Spouse Entry Into Home: Level Entry ADL-Prior Level of Function SCALE: Activities may be completed with or without assistive devices. 0-Otosingpei-aznvmfh completes the activity by him/herself with no assistance from a helper. 5-Set-up or Clean-up Assistance-helper sets up or cleans up; patient completes activity. [place] assists only prior to or following the activity. 4-Supervision or Touching Assistance-helper provides verbal cues and/or touching/steadying and/or contact guard assistance as patient completes activity. Assistance may be provided throughout the activity or intermittently. 3-Partial/Moderate Assistance-helper does LESS THAN HALF the effort. [place] lifts, holds or supports trunk or limbs, but provides less than half the effort. 2-Substantial/Maximal Assistance-helper does MORE THAN HALF the effort. [place] lifts or holds trunk or limbs and provides more than half the effort. 5-Nfprjkauu-iwkpgd does ALL the effort. Patient does none of the effort to complete the activity. Or, the assistance of 2 or more helpers is required for the patient to complete the activity. If activity was not attempted, code reason: 7-Patient Refused. 9-Not Applicable-not attempted and the patient did not perform the activity before the current illness, exacerbation or injury. 10-Not Attempted due to Environmental Limitations-(lack of equipment, weather restraints, etc.). 88-Not Attempted due to Medical Conditions or Safety Concerns. ADL PLOF Comments Pt was IND without AE Self Care: Independent Functional Cognition: Independent DME/Equipment: Bath Chair, Grab Bars, Shower DME/Equipment Comments Owns walker, sc Occupation: retired. Drive Self: Yes OT Current Status Subjective Pt seen reclined in bed, and granddaughter present. Pt states no pain currently, has been up/moving/ no BM yet. Pt agreeable to eval/ treat. Mental Status/Objective Patient Orientation: Person, Place, Time, Situation, Normal For Age Current Glasses/Contacts: Yes Hearing Aids: No Dentures/Partials: No Hand Dominance: Right Upper Extremity ROM WFL BUE Upper Extremity Coordination WFL BUE Upper Extremity Sensation WFL BUE Upper Extremity Strength WFL BUE ADL-Treatment On/Off Footwear (QC): 6 Toileting Hygiene (QC): 6 Other Treatments Pt readily agreeable to therapy. Pt educated on OT role, pt states no problem wi th toileting/ hygiene/ dressing today. Pt requests walk. Pt agrees to complete toilet transfer: completes with IND. Pt walks with 2WW around roberts 2x. Pt gives all hx and states no problems/ forseen issues with return home. States is home with her. Pt returns to room, granddaughter present. Pt sits in recliner with all needs met, call light in reach. Pt denies needs. Pt educated of no need for OT on acute floor, pt agrees. Education OT Patient Education: Correct positioning, Safety issues Teaching Recipient: Patient Teaching Methods: Demonstration, Discussion Response to Teaching: Verbalize Understanding, Return Demonstration OT Professor Of Family Medicine Goals Assisted Goals 1=Demonstrate adherence to instructed precautions during ADL tasks. 2=Patient will verbalize/demonstrate understanding of assistive devices/modifications for ADL. 3=Patient will improve strength/tolerance for activity to enable patient to perform ADL's. OT Education/Plan Problem List/Assessment Assessment: No Skilled OT Needs ID'd (eval and d/c.) Discharge Recommendations Plan/Recommendations: Discharge/Goals Met Therapy Discharge Recommendati: Home & Family Treatment Plan/Plan of Care Treatment,Training & Education: Yes Patient would benefit from OT for education, treatment and training to promote independence in ADL's, mobility, safety and/or upper extremity function for ADL's. Plan of Care: OTHER (eval only) Treatment Duration: Jul 23, 2019 Frequency: 1 time per week (eval only) Time/GCodes Start Time: 13:08 Stop Time: 13:21 Total Time Billed (hr/min): 12 Billed Treatment Time 1, EVL (12) KIM RAIN OTR Jul 23, 2019 13:27
[2019-07-23] MEDS: PROMETHAZINE INJ 25 MG/ML (PHENERGAN) AMP IVP PRN (14:07)
--- NOTE | 2019-07-23 14:28 | Physical Therapy Evaluation ---
PT Evaluation-General Medical Diagnosis Admission Date Jul 21, 2019 at 10:58 Medical Diagnosis: abdominal pain/ UTI Onset Date: Jul 23, 2019 Therapy Diagnosis Therapy Diagnosis: debilitly/weakness/decreased pulmonary function Height/Weight Height (Feet): 5 Height (Inches): 4.00 Weight (Pounds): 300 Weight (Ounces): 0.0 Precautions Precautions/Isolations: Standard Precautions Weight Bear Status Right Lower Extremity: Right Weight Bearing/Tolerated Left Lower Extremity: Left Weight Bearing/Tolerated Referral Physician: Saniya Polanco DO Reason for Referral: Evaluation/Treatment Medical History Pertinent Medical History: Atrial Fib, HTN, Hypothroidism Additional Medical History obesity Current History ER secondary to SOA x 2 months and has been treated for pneumonia Reviewed History: Yes Social History Home: Single Level Current Living Status: Spouse Entry Into Home: Level Entry Prior Prior Level of Function SCALE: Activities may be completed with or without assistive devices. 5-Eckeitlwdz-czlmroi completes the activity by him/herself with no assistance from a helper. 5-Set-up or Clean-up Assistance-helper sets up or cleans up; patient completes activity. [place] assists only prior to or following the activity. 4-Supervision or Touching Assistance-helper provides verbal cues and/or touching/steadying and/or contact guard assistance as patient completes activity. Assistance may be provided throughout the activity or intermittently. 3-Partial/Moderate Assistance-helper does LESS THAN HALF the effort. [place] lifts, holds or supports trunk or limbs, but provides less than half the effort. 2-Substantial/Maximal Assistance-helper does MORE THAN HALF the effort. [place] lifts or holds trunk or limbs and provides more than half the effort. 7-Ofegwnipi-juggwa does ALL the effort. Patient does none of the effort to complete the activity. Or, the assistance of 2 or more helpers is required for the patient to complete the activity. If activity was not attempted, code reason: 7-Patient Refused. 9-Not Applicable-not attempted and the patient did not perform the activity before the current illness, exacerbation or injury. 10-Not Attempted due to Environmental Limitations-(lack of equipment, weather restraints, etc.). 88-Not Attempted due to Medical Conditions or Safety Concerns. Bed Mobility: 5 Transfers (B,C,W/C): 5 Gait: 5 Indoor Mobility (Ambulation): Independent Prior Devices Use: Walker PT Evaluation-Current Subjective Patient currently on 5L O2 NC. Agrees to PT. Noted SOA at rest with SAO2 96%. Pain Numeric Pain Scale: 0-No Pain Location: No Pain Reported Objective Patient Orientation: Normal For Age Attachments: Oxygen ROM/Strength ROM Lower Extremities bilateral LE WFL (with noted edema and zahra wraps in place bilaterally) Strength Lower Extremities 3+/5 grossly bilateral LE Integumentary/Posture Integumentary refer to nursing notes Bowel Incontinence: No Bladder Incontinence: No Posture WFL Neuromuscular (Tone, Coordination, Reflexes) grossly intact Sensory Vision: Functional Hearing: Functional Hand Dominance: Right Sensation Right Lower Extremit: Impaired Sensation Left Lower Extremity: Impaired Transfers Roll Left to Right (QC): 3 Sit to Lying (QC): 3 Lying to Sitting/Side of Bed(Q: 3 Sit to Stand (QC): 3 Chair/Bbm-eu-Dqpdl Xfer(QC): 3 Gait Does the Patient Walk?: Yes Mode of Locomotion: Walk Anticipated Mode of Locomotion: Walk Walk 10 feet (QC): 3 Walk 50 ft with 2 Turns(QC): 3 Walk 150 ft (QC): 3 Distance: 150' Gait Assistive Device: FWW Comments/Gait Description slow, with increase SOA and frequent standing recovery periods due to this. S AO2 90% on 6L O2 NC Balance Sitting Static: Normal Sitting Dynamic: Normal Standing Static: Good Standing Dynamic: Good Assessment/Needs 64 y.o. female, will benefit from skilled PT to address functional strength and mobility to improve current LOF to safely return to home with spouse at maximum LOF. Rehab Potential: Guarded PT Care Home Goals Care Home Goals PT Spareribs Trimmer Goals Time Frame: Aug 10, 2019 Roll Left & Right (QC): 5 Sit to Lying (QC): 5 Lying-Sitting on Side/Bed(QC): 5 Sit to Stand (QC): 5 Chair/Pub-ph-Eczrx Xfer(QC): 5 Toilet Transfer (QC): 5 Does the Patient Walk: Yes Walk 10 feet (QC): 5 Walk 50ft with 2 Turns (QC): 5 Walk 150 ft (QC): 5 PT Plan Problem List Problem List: Activity Tolerance, Functional Strength, Bed Mobility Treatment/Plan Treatment Plan: Continue Plan of Care Treatment Plan: Bed Mobility, Education, Functional Activity Kaushik, Functional Strength, Gait, Safety, Therapeutic Exercise, Transfers Treatment Duration: Aug 10, 2019 Frequency: 6 times per week Estimated Hrs Per Day: .25 hour per day Patient and/or Family Agrees t: Yes Time/GCodes Time In: 1340 Time Out: 1355 Total Billed Treatment Time: 15 Total Billed Treatment 1 visit EVModC 15 min ALLEGRA CUNHA PT Jul 23, 2019 14:28
--- NOTE | 2019-07-23 14:34 | Physical Therapy Evaluation ---
PT Evaluation-General Medical Diagnosis Admission Date Jul 21, 2019 at 10:58 Medical Diagnosis: abdominal pain/ UTI Onset Date: Jul 23, 2019 Therapy Diagnosis Therapy Diagnosis: debility Height/Weight Height (Feet): 5 Height (Inches): 4.00 Weight (Pounds): 300 Weight (Ounces): 0.0 Precautions Precautions/Isolations: Standard Precautions Weight Bear Status Right Lower Extremity: Right Weight Bearing/Tolerated Left Lower Extremity: Left Weight Bearing/Tolerated Referral Physician: Saniya Polanco DO Reason for Referral: Evaluation/Treatment Medical History Pertinent Medical History: DM, GERD Current History ER with epigastric pain Reviewed History: Yes Social History Home: Single Level Current Living Status: Spouse Entry Into Home: Level Entry Prior Prior Level of Function SCALE: Activities may be completed with or without assistive devices. 1-Rgcasszmrc-klfdugh completes the activity by him/herself with no assistance from a helper. 5-Set-up or Clean-up Assistance-helper sets up or cleans up; patient completes activity. [place] assists only prior to or following the activity. 4-Supervision or Touching Assistance-helper provides verbal cues and/or touching/steadying and/or contact guard assistance as patient completes activity. Assistance may be provided throughout the activity or intermittently. 3-Partial/Moderate Assistance-helper does LESS THAN HALF the effort. [place] lifts, holds or supports trunk or limbs, but provides less than half the effort. 2-Substantial/Maximal Assistance-helper does MORE THAN HALF the effort. [place] lifts or holds trunk or limbs and provides more than half the effort. 2-Igliqzkhb-rygfcn does ALL the effort. Patient does none of the effort to complete the activity. Or, the assistance of 2 or more helpers is required for the patient to complete the activity. If activity was not attempted, code reason: 7-Patient Refused. 9-Not Applicable-not attempted and the patient did not perform the activity before the current illness, exacerbation or injury. 10-Not Attempted due to Environmental Limitations-(lack of equipment, weather restraints, etc.). 88-Not Attempted due to Medical Conditions or Safety Concerns. Bed Mobility: 6 Transfers (B,C,W/C): 6 Gait: 6 Stairs: 6 Indoor Mobility (Ambulation): Independent Prior Devices Use: Walker PT Evaluation-Current Subjective Patient agrees to PT. Patient reports she is up independently in room and hallway currently. Objective Patient Orientation: Normal For Age ROM/Strength ROM Lower Extremities bilateral LE WFL Strength Lower Extremities 4/5 grossly bilateral LE Integumentary/Posture Integumentary refer to nursing notes Bowel Incontinence: No Bladder Incontinence: No Posture WFL Neuromuscular (Tone, Coordination, Reflexes) grossly intact Sensory Vision: Functional Hearing: Functional Hand Dominance: Right Sensation Right Lower Extremit: Impaired Sensation Left Lower Extremity: Impaired Transfers Roll Left to Right (QC): 6 Sit to Lying (QC): 6 Lying to Sitting/Side of Bed(Q: 6 Sit to Stand (QC): 6 Chair/Sae-wv-Pgxbc Xfer(QC): 6 Gait Does the Patient Walk?: Yes Mode of Locomotion: Walk Anticipated Mode of Locomotion: Walk Walk 10 feet (QC): 6 Walk 50 ft with 2 Turns(QC): 6 Walk 150 ft (QC): 6 Distance: 400' Gait Assistive Device: FWW Comments/Gait Description safe and functional Balance Sitting Static: Normal Sitting Dynamic: Normal Standing Static: Normal Standing Dynamic: Normal Assessment/Needs Patient is currently at independent [facility] with all gross motor skills and does not require skilled therapy intervention. Rehab Potential: Fair PT Plan Treatment/Plan Treatment Plan: Discontinue PT Treatment Plan: Other Treatment Duration: Jul 23, 2019 Frequency: 1 time per week Estimated Hrs Per Day: .25 hour per day Patient and/or Family Agrees t: Yes Time/GCodes Time In: 1356 Time Out: 1408 Total Billed Treatment Time: 12 Total Billed Treatment 1 visit EVLowC 12 min ALLEGRA CUNHA PT Jul 23, 2019 14:34
[2019-07-23] MEDS: KETOROLAC 30 MG/ML VIAL IVP PRN (17:00)
[2019-07-23] MEDS ORDERED: PROMETHAZINE INJ 25 MG/ML (PHENERGAN) AMP IVP PRN (19:30)
[2019-07-23] MEDS: inSUlin ASPART (NovoLOG) 1 UNIT/0.01 ML (CHARGE PER UNIT) SC SCH (20:47)
--- NOTE | 2019-07-23 21:50 | NUR ---
Dr. Andrews notified of patient stating "I can't take it anymore" and rating pain at 10:10 - New Order rec for Dilaudid 0.5mg IV x 1 dose now.
[2019-07-23] MEDS ORDERED: HYDROmorphone 2 MG/ML VIAL (DILAUDID) IV ONE (22:00)
[2019-07-23] MEDS: cefTRIAXone 1,000 MG/SWFI 10 ML IV PUSH IV SCH ×2 (22:07)
--- NOTE | 2019-07-23 22:45 | NUR ---
Pt appears to be much more comfortable as e/b resting quietly with eyes closed at this time.
[2019-07-24] MEDS: ENOXAPARIN 60 MG/0.6 ML (LOVENOX) SYR SC SCH (00:19)
[2019-07-24] MEDS: LACTATED RINGERS 1,000 ML IV SCH (03:29)
[2019-07-24 04:35] VITALS: BP 123/71
[2019-07-24 05:15] LABS: BASOPHILS % (AUTO) 0 % (0-10); EOSINOPHILS # (AUTO) 0.1 10^3/uL (0.0-0.3); EOSINOPHILS % (AUTO) 1 % (0-10); HEMATOCRIT 37 % (35-52); HEMOGLOBIN 12.2 G/DL (11.5-16.0); LYMPHOCYTES # (AUTO) 0.8 X 10^3 (1.0-4.0); LYMPHOCYTES % (AUTO) 12 % (12-44); MEAN CORPUSCULAR HEMOGLOBIN 30 PG (25-34); MEAN CORPUSCULAR HGB CONC 33 G/DL (32-36); MEAN CORPUSCULAR VOLUME 91 FL (80-99); MEAN PLATELET VOLUME 10.9 FL (7.4-10.4); MONOCYTES # (AUTO) 0.5 X 10^3 (0.0-1.0); MONOCYTES % (AUTO) 7 % (0-12); NEUTROPHILS # (AUTO) 5.3 X 10^3 (1.8-7.8); NEUTROPHILS % (AUTO) 80 % (42-75); PLATELET COUNT 177 10^3/uL (130-400); RED CELL DISTRIBUTION WIDTH 15.5 % (10.0-14.5); WHITE BLOOD COUNT 6.7 10^3/uL (4.3-11.0)
[2019-07-24 05:33] LABS: ALANINE AMINOTRANSFERASE 154 U/L (0-55); ALBUMIN 3.1 GM/DL (3.2-4.5); ALKALINE PHOSPHATASE 136 U/L (40-136); BILIRUBIN,TOTAL 1.1 MG/DL (0.1-1.0); BUN/CREATININE RATIO 10; CALCIUM 8.7 MG/DL (8.5-10.1); CARBON DIOXIDE 29 MMOL/L (21-32); CHLORIDE 103 MMOL/L (98-107); CREATININE SERUM 0.78 MG/DL (0.60-1.30); GFR ESTIMATED > 60; GLUCOSE 113 MG/DL (70-105); LIPASE 24 U/L (8-78); POTASSIUM 3.4 MMOL/L (3.6-5.0); SODIUM 140 MMOL/L (135-145); TOTAL PROTEIN 5.9 GM/DL (6.4-8.2)
[2019-07-24] MEDS: inSUlin ASPART (NovoLOG) 1 UNIT/0.01 ML (CHARGE PER UNIT) SC SCH (05:44)
[2019-07-24] MEDS: KETOROLAC 30 MG/ML VIAL IVP PRN ×2 (06:12→13:27)
--- NOTE | 2019-07-24 07:53 | Progress Note - Surgery ---
[facility]: Subjective Date Seen by a Provider: Jul 24, 2019 Time Seen by a Provider: 07:10 Subjective/Events-last exam Patient seen and examined. Patient is tolerating fluids. Patient reports her urine is more clear. Stated pain was bad last night and needed Dilaudid. Nausea has improved but still comes and goes. Review of Systems General: No Chills, No Other (robert) Pulmonary: No Dyspnea, No Cough Cardiovascular: No: Chest Pain, Palpitations Gastrointestinal: Nausea, Abdominal Pain; No: Vomiting Genitourinary: No Dysuria, No Frequency Objective Exam Vital Signs Date Time Temp Pulse Resp B/P (MAP) Pulse Ox O2 Delivery O2 Flow Rate FiO2 07/24/19 04:35 37.2 85 18 123/71 (88) 94 Room Air 07/23/19 23:25 37.0 63 20 151/74 (99) 94 Room Air 07/23/19 20:00 Room Air 07/23/19 19:37 37.2 70 20 162/77 (105) 92 Room Air 07/23/19 15:33 37.4 56 16 168/81 (110) 96 Room Air 07/23/19 12:00 35.7 58 20 166/74 (104) 91 Room Air 07/23/19 08:00 Room Air 07/23/19 08:00 36.5 60 20 165/70 (101) 94 Room Air I & O 07/24/19 07:00 Intake Total 2640 ml Output Total 2800 ml Balance -160 ml Capillary Refill : NONELess Than 3 Seconds General Appearance: No Apparent Distress, WD/WN, Obese Respiratory: Chest Non Tender, Lungs Clear, No Accessory Muscle Use, No Respiratory Distress, Decreased Breath Sounds Cardiovascular: Regular Rate, Rhythm, No Murmur, Normal Peripheral Pulses (2/4 radial pulse bilaterally) Gastrointestinal: guarding (to palpation in the epigastric region), tenderness (to palpation in the epigastric region. ) Extremity: No Calf Tenderness, Swelling (In the upper extremities. Patient appears to be more hydrated. ) Neurologic/Psychiatric: Alert, Oriented x3 Skin: Normal Color, Warm/Dry Results Lab Laboratory Tests 07/23/19 20:47: Glucometer 93 07/24/19 05:04: White Blood Count 6.7, Red Blood Count 4.08L, Hemoglobin 12.2, Hematocrit 37, Mean Corpuscular Volume 91, Mean Corpuscular Hemoglobin 30, Mean Corpuscular Hemoglobin Concent 33, Red Cell Distribution Width 15.5H, Platelet Count 177, Mean Platelet Volume 10.9H, Neutrophils (%) (Auto) 80H, Lymphocytes (%) (Auto) 12, Monocytes (%) (Auto) 7, Eosinophils (%) (Auto) 1, Basophils (%) (Auto) 0, Neutrophils # (Auto) 5.3, Lymphocytes # (Auto) 0.8L, Monocytes # (Auto) 0.5, Eosinophils # (Auto) 0.1, Basophils # (Auto) 0.0, Sodium Level 140, Potassium Level 3.4L, Chloride Level 103, Carbon Dioxide Level 29, Anion Gap 8, Blood Urea Nitrogen 8, Creatinine 0.78, Estimat Glomerular Filtration Rate > 60, BUN/Creatinine Ratio 10, Glucose Level 113H, Calcium Level 8.7, Corrected Calcium 9.4, Total Bilirubin 1.1H, Aspartate Amino Transf (AST/SGOT) 47H, Alanine Aminotransferase (ALT/SGPT) 154H, Alkaline Phosphatase 136, Total Protein 5.9L, Albumin 3.1L, Lipase 24 Assessment/Plan Assessment/Plan Assessment/Plan Abdominal pain Nausea Continue Phenergan and Pain control. Continue using NSAIDs and narcotics only when needed. Clinical Quality Measures AMI/AHF: ASA po Prior to arrival: No DVT/VTE Risk/Contraindication: Risk Factor Score Per Nursin RFS Level Per Nursing on Admit: 4+=Very High PRASHANTH ANDREWS DO 07/24/19 1257: Subjective Time Seen by a Provider: 12:34 Subjective/Events-last exam Pt seen and examined, still has some pain but going home. Objective Exam Respiratory: Lungs Clear, No Accessory Muscle Use Cardiovascular: Regular Rate, Rhythm, No Murmur Gastrointestinal: soft, no organomegaly, tenderness (to palpation in the epigastric region. ) Assessment/Plan Assessment/Plan Assessment/Plan Chronic Pancreatitis Increase diet slowly and take pain meds/anti-emetics as needed. Can follow up in my clinic as needed. Supervisory-Addendum Brief Verification & Attestation Participated in pt care: history, MDM, physical Personally performed: exam, history, MDM Care discussed with: Medical Student Procedures: n/a Verification and Attestation of Medical Student E/M Service A medical student performed and documented this service in my presence. I reviewed and verified all information documented by the medical student and made modifications to such information, when appropriate. I personally performed the physical exam and medical decision making. Prashanth Andrews, Jul 24, 2019,12:57 [facility] Jul 24, 2019 07:53 PRASHANTH ANDREWS DO Jul 24, 2019 12:57
[2019-07-24 08:30] VITALS: BP 138/67
[2019-07-24] MEDS: FAMOTIDINE 20MG/2ML IV (PEPCID) IVP SCH (09:10)
[2019-07-24] MEDS: PANTOPRAZOLE 40 MG (PROTONIX) VIAL IV SCH (09:10)
[2019-07-24] MEDS ORDERED: ACHD5005 PO (11:51)
[2019-07-24] MEDS ORDERED: PROM25TA14 PO (11:51)
--- NOTE | 2019-07-24 13:32 | Discharge Summary ---
ZACHARY FRIAS, MEDICAL STUDENT 07/24/19 1332: Diagnosis/Chief Complaint Date of Admission Jul 21, 2019 at 10:58 Date of Discharge Discharge Date: Jul 24, 2019 Admission Diagnosis Assessment: Acute pancreatitis GERD Recent UTI Obesity HTN Plan: IV Dilaudid IVF NPO Lovenox PPI Primary Care Ousmane Alas Lizzy Jimeneznp Discharge Diagnosis Acute Pancreatitis (1) Acute pancreatitis Status: Acute Assessment & Plan: Patient was kept NPO and given IV fluids, allowing her lipase to normalize and her LFTs to trend down. Her lipase is wnl and patient is ready to attempt resuming a normal diet once her appetite returns, Discharge Summary Discharge Physical Exam Allergies: Coded Allergies: Iodinated Contrast Media (Verified Allergy, Severe, 07/20/19) Sulfa (Sulfonamide Antibiotics) (Unverified Allergy, Mild, 12/20/08) indomethacin (Unverified Allergy, Mild, 12/20/08) iodine (Unverified Allergy, Mild, 12/20/08) lansoprazole (Unverified Allergy, Mild, 12/20/08) latex (Unverified Allergy, Mild, 12/20/08) meperidine (Unverified Allergy, Mild, 12/20/08) paroxetine (Unverified Allergy, Mild, 12/20/08) ciprofloxacin (Verified Allergy, Unknown, 07/20/19) Uncoded Allergies: ANIMAL DANDER (Allergy, Mild, 12/20/08) TAPE (Allergy, Mild, 12/20/08) Vitals & I&Os Vital Signs Date Time Temp Pulse Resp B/P (MAP) Pulse Ox O2 Delivery O2 Flow Rate FiO2 07/24/19 08:30 35.7 76 20 138/67 (90) 95 Room Air General Appearance: Mild Distress, Obese HEENT: PERRL/EOMI, Normal ENT Inspection, Pharynx Normal Respiratory: Chest Non Tender, Lungs Clear, Normal Breath Sounds, No Accessory Muscle Use, No Respiratory Distress Cardiovascular: Regular Rate, Rhythm, No Edema, No Gallop, No JVD, No Murmur, Normal Peripheral Pulses Gastrointestinal: Normal Bowel Sounds, No Organomegaly, No Pulsatile Mass, Soft Extremity: Normal Range of Motion, Non Tender, No Calf Tenderness Skin: Normal Color, Warm/Dry Neurologic/Psychiatric: Alert, Oriented x3, No Motor/Sensory Deficits, Normal Mood/Affect, certified orthotic fitter II-XII Norm as Tested Hospital Course 64 YO F who originally presented with chest pain that was later diagnosed as pancreatitis on imaging. The patient remained in the hospital for several days recovering from her acute condition requiring multiple different pain medicat ions as well antiemetics due to severe nausea. The patient often complained of pain despite receiving maximal doses of PRN meds though the nausea resolved. She has been maintaining only a full liquid diet as she has not developed an appetite after this episode due to fear of the pain returning. Labs (last 24 hrs) Laboratory Tests 07/23/19 20:47: Glucometer 93 07/24/19 05:04: White Blood Count 6.7, Red Blood Count 4.08L, Hemoglobin 12.2, Hematocrit 37, Mean Corpuscular Volume 91, Mean Corpuscular Hemoglobin 30, Mean Corpuscular Hemoglobin Concent 33, Red Cell Distribution Width 15.5H, Platelet Count 177, Mean Platelet Volume 10.9H, Neutrophils (%) (Auto) 80H, Lymphocytes (%) (Auto) 12, Monocytes (%) (Auto) 7, Eosinophils (%) (Auto) 1, Basophils (%) (Auto) 0, Neutrophils # (Auto) 5.3, Lymphocytes # (Auto) 0.8L, Monocytes # (Auto) 0.5, Eosinophils # (Auto) 0.1, Basophils # (Auto) 0.0, Sodium Level 140, Potassium Level 3.4L, Chloride Level 103, Carbon Dioxide Level 29, Anion Gap 8, Blood Urea Nitrogen 8, Creatinine 0.78, Estimat Glomerular Filtration Rate > 60, BUN/Creatinine Ratio 10, Glucose Level 113H, Calcium Level 8.7, Corrected Calcium 9.4, Total Bilirubin 1.1H, Aspartate Amino Transf (AST/SGOT) 47H, Alanine Aminotransferase (ALT/SGPT) 154H, Alkaline Phosphatase 136, Total Protein 5.9L, Albumin 3.1L, Lipase 24 Patient resulted labs reviewed. Discussion & Recommendations Patient will be discharged home today with instructions to gradually increase her diet back to normal as her appetite returns. She will be given 15 Hydrocodone to help her manage her residual pain and promethazine for any nausea she may have. Discharge Home Medications: Active Scripts Active Promethazine Tablet (Promethazine HCl) 25 Mg Tablet 25 Mg PO Q6H PRN Hydrocodone/Acetaminophen 5/325mg Tablet (Acetaminophen/Hydrocodone Bitart) 1 Tab Tab 1 Tab PO Q4-6HR PRN MDD 10 Reported Ciprofloxacin HCl 500 Mg Tablet 500 Mg PO Q12H FILLED 07-18-2019 #14 / 7 DAY SUPPLY Biotin 10 Mg Tablet 10 Mg PO DAILY Claritin (Loratadine) 10 Mg Tablet 10 Mg PO DAILY PRN Calcium (Calcium Carbonate) 600 Mg Tablet 600 Mg PO DAILY Magnesium 250 Mg Tablet 250 Mg PO DAILY Vitamin C (Ascorbic Acid) 100 Mg Tablet 100 Mg PO DAILY Multivitamins (Multivitamin) 1 Each Tablet 1 Each PO DAILY Meloxicam 15 Mg Tablet 15 Mg PO DAILY Escitalopram Oxalate 10 Mg Tablet 10 Mg PO DAILY Lisinopril 10 Mg Tablet 10 Mg PO DAILY Omeprazole 20 Mg Capsule.dr 20 Mg PO HS Montelukast Sodium 10 Mg Tablet 10 Mg PO HS Proair Hfa (Albuterol Sulfate) 8.5 Gm Hfa.aer.ad 2 Puff IH Q4H PRN Instructions to patient/family Please see electronic discharge instructions given to patient. Clinical Quality Measures AMI/AHF: ASA po Prior to arrival: No DVT/VTE Risk/Contraindication: Risk Factor Score Per Nursin RFS Level Per Nursing on Admit: 4+=Very High SANIYA YOUNG DO 07/24/192101: Discharge Summary Discharge Physical Exam Allergies: Coded Allergies: Iodinated Contrast Media (Verified Allergy, Severe, 07/20/19) Sulfa (Sulfonamide Antibiotics) (Unverified Allergy, Mild, 12/20/08) indomethacin (Unverified Allergy, Mild, 12/20/08) iodine (Unverified Allergy, Mild, 12/20/08) lansoprazole (Unverified Allergy, Mild, 12/20/08) latex (Unverified Allergy, Mild, 12/20/08) meperidine (Unverified Allergy, Mild, 12/20/08) paroxetine (Unverified Allergy, Mild, 12/20/08) ciprofloxacin (Verified Allergy, Unknown, 07/20/19) Uncoded Allergies: ANIMAL DANDER (Allergy, Mild, 12/20/08) TAPE (Allergy, Mild, 12/20/08) General Appearance: No Apparent Distress, WD/WN Hospital Course Was the Problem List Reviewed?: Yes Hospital Course: Pt had an uneventful but lengthy hospital course following acute pancreatitis, all liver enzymes gradually improved, UTI was fully treated with Rocephin, and Lipase and Amylase remained normal for three days but she continued to have pain so I instructed her to take antimetics and pain medication, clear liquid diet and to advance very slowly to prevent any type of increased pain. Discussion & Recommendations Discharge Planning: <30 minutes discharge planning Supervisory-Addendum Brief Verification & Attestation Participated in pt care: history, MDM, physical Personally performed: exam, history, MDM, supervision of care Care discussed with: Medical Student Procedures: n/a Results interpretation: Verified all documentation Verification and Attestation of Medical Student E/M Service A medical student performed and documented this service in my presence. I reviewed and verified all information documented by the medical student and made modifications to such information, when appropriate. I personally performed the physical exam and medical decision making. Saniya Young, Jul 24, 2019,21:02 Problem Qualifiers (1) Acute pancreatitis: Pancreatitis type: idiopathic Acute pancreatitis complication: no infection or necrosis Qualified Codes: K85.00 - Idiopathic acute pancreatitis without necrosis or infection ZACHARY FRIAS, MEDICAL STUDENT Jul 24, 2019 13:32 SANIYA YOUNG DO Jul 24, 2019 21:02
== END 2019-07-24 14:00 | disposition home or self-care (01) | DRG 439 ==
LOC: EDUNIT# 17:31 → ER 17:32 → 4TH 21:00 → OBSVTOIN 07-21 10:58 → 4TH 07-23 14:48
PROVIDERS: ADMIT Internal Medicine; ATTEND Internal Medicine
DX: K85.00 Idiopathic acute pancreatitis without necrosis or infection (principal); N30.01 Acute cystitis with hematuria; K56.7 Ileus, unspecified; Z68.43 Body mass index [BMI] 50.0-59.9, adult; K21.9 Gastro-esophageal reflux disease without esophagitis; I10 Essential (primary) hypertension; E66.9 Obesity, unspecified; J45.909 Unspecified asthma, uncomplicated; F41.9 Anxiety disorder, unspecified; K44.9 Diaphragmatic hernia without obstruction or gangrene; E11.9 Type 2 diabetes mellitus without complications; F32.9 Major depressive disorder, single episode, unspecified; L81.7 Pigmented purpuric dermatosis; L27.0 Generalized skin eruption due to drugs and medicaments taken internally; T36.8X5A Adverse effect of other systemic antibiotics, initial encounter; Z96.0 Presence of urogenital implants; Z96.653 Presence of artificial knee joint, bilateral
CPT/HCPCS: 36415; 71045; 74176; 76937; 80053; 80061; 80320; 80329; 81000; 82150; 82962; 83690; 83735; 83874; 83880; 84484; 85007; 85025; 85027; 85610; 85730; 93005; 93041; 96361; 96374; 96375; G0378

== ENCOUNTER 2019-08-04 15:50 | Emergency (ER) | payer MEDICARE, OTHER ==
[~2019-08-04] VITALS: Ht 162 cm; Wt 132.0 kg
[~2019-08-04 15:50] MED LIST changes: +ACHD5005 PO; +ASCO100T6 PO; +BIOT10TA PO; +CALC600T12 PO; +CIPR500T4 PO; +LISI10TA2 PO; +LORA10TA76 PO; +MAGN250T2 PO; +MELO15TA39 PO; +MONT10TA26 PO; +MULT1TAB69 PO; +OMEP20CA18 PO
[2019-08-04] MEDS ORDERED: LACTATED RINGERS 1,000 ML IV ONE ×2 (16:00→16:58)
[2019-08-04] MEDS ORDERED: ONDANSETRON 4 MG/2 ML (SDV) Z0FRAN ONE (16:00)
[2019-08-04] MEDS ORDERED: PROMETHAZINE INJ 25 MG/ML (PHENERGAN) AMP ONE (16:00)
[2019-08-04] MEDS ORDERED: PROMETHAZINE INJ 25 MG/ML (PHENERGAN) AMP IVP STA (16:04)
[2019-08-04] MEDS ORDERED: LACTATED RINGERS 1,000 ML IV STA (16:04)
[2019-08-04] MEDS ORDERED: fentaNYL INJECTION 100 MCG/2 ML AMP IVP STA (16:04)
[2019-08-04 16:09] LABS: BASOPHILS % (AUTO) 0 % (0-10); EOSINOPHILS % (AUTO) 0 % (0-10); HEMATOCRIT 45 % (35-52); HEMOGLOBIN 15.4 G/DL (11.5-16.0); LYMPHOCYTES # (AUTO) 0.7 X 10^3 (1.0-4.0); LYMPHOCYTES % (AUTO) 8 % (12-44); MEAN CORPUSCULAR HEMOGLOBIN 30 PG (25-34); MEAN CORPUSCULAR HGB CONC 34 G/DL (32-36); MEAN CORPUSCULAR VOLUME 88 FL (80-99); MEAN PLATELET VOLUME 10.5 FL (7.4-10.4); MONOCYTES # (AUTO) 0.4 X 10^3 (0.0-1.0); MONOCYTES % (AUTO) 4 % (0-12); NEUTROPHILS % (AUTO) 88 % (42-75); PLATELET COUNT 302 10^3/uL (130-400); RED CELL DISTRIBUTION WIDTH 14.4 % (10.0-14.5); WHITE BLOOD COUNT 9.1 10^3/uL (4.3-11.0)
--- NOTE | 2019-08-04 16:13 | ED Abdominal Pain ---
General Stated Complaint: HX PANCREATITIS/VOMITING Source of Information: Patient Exam Limitations: No Limitations History of Present Illness Date Seen by Provider: Aug 04, 2019 Time Seen by Provider: 15:59 Initial Comments Here with report of left upper quadrant abdominal pain associated with dry heaves. She has had this problem all day. She was admitted 2 weeks ago for acute pancreatitis and was in the hospital for a few days. She has done better until today when things started to return. Normal bowel movement yesterday. Urinating okay. No fever or chills. She was unable to keep the Phenergan down to help with the vomiting and nausea today. Timing/Duration: 24 Hours Severity/Quality: Moderate, Sharp Location: [facility] Radiation: No Radiation Activities at Onset: None Modifying Factors: Worsens With Eating; Improves With Resting Associated Symptoms: No Back Pain, No Chest Pain, No Fever/Chills; Fatigue, Nausea/Vomiting, Swelling/Mass in Abdomen; No Weakness Allergies and Home Medications Allergies Coded Allergies: Iodinated Contrast Media (Verified Allergy, Severe, 07/20/19) Sulfa (Sulfonamide Antibiotics) (Unverified Allergy, Mild, 12/20/08) indomethacin (Unverified Allergy, Mild, 12/20/08) iodine (Unverified Allergy, Mild, 12/20/08) lansoprazole (Unverified Allergy, Mild, 12/20/08) latex (Unverified Allergy, Mild, 12/20/08) meperidine (Unverified Allergy, Mild, 12/20/08) paroxetine (Unverified Allergy, Mild, 12/20/08) ciprofloxacin (Verified Allergy, Unknown, 07/20/19) Uncoded Allergies: ANIMAL DANDER (Allergy, Mild, 12/20/08) TAPE (Allergy, Mild, 12/20/08) Home Medications Albuterol Sulfate 8.5 Gm Hfa.aer.ad, 2 PUFF IH Q4H PRN for SHORTNESS OF BREATH, (Reported) Ascorbic Acid 100 Mg Tablet, 100 MG PO DAILY, (Reported) Biotin 10 Mg Tablet, 10 MG PO DAILY, (Reported) Calcium Carbonate 600 Mg Tablet, 600 MG PO DAILY, (Reported) Escitalopram Oxalate 10 Mg Tablet, 10 MG PO DAILY, (Reported) Hydrocodone Bit/Acetaminophen 1 Tab Tab, 1 TAB PO Q4-6HR PRN for PAIN-MODERATE Prescribed by: EMMANUEL YOUNG on 07/24/19 1151 Lisinopril 10 Mg Tablet, 10 MG PO DAILY, (Reported) Loratadine 10 Mg Tablet, 10 MG PO DAILY PRN for ALLERGY SYMPTOMS, (Reported) Magnesium 250 Mg Tablet, 250 MG PO DAILY, (Reported) Montelukast Sodium 10 Mg Tablet, 10 MG PO HS, (Reported) Multivitamin 1 Each Tablet, 1 EACH PO DAILY, (Reported) Omeprazole 20 Mg Capsule.dr, 20 MG PO HS, (Reported) Promethazine HCl 25 Mg Tablet, 25 MG PO Q6H PRN for NAUSEA/VOMITING Prescribed by: EMMANUEL YOUNG on 07/24/19 1151 Patient Home Medication List Home Medication List Reviewed: Yes Review of Systems Review of Systems Constitutional: see HPI; No chills, No fever EENTM: No Symptoms Reported Respiratory: No Symptoms Reported Cardiovascular: No Symptoms Reported Gastrointestinal: See HPI, Abdominal Pain, Nausea, Vomiting Genitourinary: No Symptoms Reported Musculoskeletal: no symptoms reported Skin: no symptoms reported All Other Systems Reviewed Negative Unless Noted: Yes Past Wtoinsv-Naixmb-Jugcqz Hx Past Med/Social Hx: Reviewed Nursing Past Med/Soc Hx Patient Social History Alcohol Use: Denies Use Recreational Drug Use: No Smoking Status: Never a Smoker Recent Foreign Travel: No Contact w/Someone Who Travel: No Recent Hopitalizations: No Immunizations Up To Date Tetanus Booster (TDap): Unknown PED Vaccines UTD: Yes Date of Influenza Vaccine: Mar 26, 2019 Past Medical History Surgeries: Yes Appendectomy, Gallbladder, Hysterectomy, Joint Replacement, Lumpectomy Respiratory: No Asthma Currently Using CPAP: No Currently Using BIPAP: No Cardiac: Yes Hypertension Neurological: No Reproductive Disorders: No Female Reproductive Disorders: Denies Sexually Transmitted Disease: No HIV/AIDS: No Genitourinary: Yes Bladder Infection Gastrointestinal: Yes Gastroesophageal Reflux, Diverticulosis, Pancreatitis Musculoskeletal: Yes (Bilateral knee replacement) Arthritis Endocrine: Yes (Prediabetic) Diabetes, Non-Insulin dep HEENT: No Loss of Vision: Denies Hearing Impairment: Denies Cancer: No Psychosocial: Yes Anxiety Integumentary: No Blood Disorders: No Adverse Reaction/Blood Tranf: No Family Medical History Reviewed Nursing Family Hx Alcoholism 19 FATHER G8 SISTER G8 SISTER Arthritis 19 FATHER 19 MOTHER G8 SISTER G8 SISTER G8 SISTER G8 SISTER Cardiovascular disease 19 MOTHER Cataracts 19 FATHER 19 MOTHER Deafness or hearing loss 19 FATHER 19 MOTHER Dementia 19 MOTHER Drug abuse G8 BROTHER Fibrocystic disease of breast 19 MOTHER G8 SISTER G8 SISTER Headache disorder 19 FATHER 19 MOTHER G8 BROTHER G8 SISTER G8 SISTER G8 SISTER G8 SISTER Hypertension 19 FATHER Kidney disease 19 FATHER Psychosocial problem G8 BROTHER Respiratory disorder G8 SISTER G8 SISTER G8 SISTER G8 SISTER CAD Under 55 Years Old, Hypertension, Renal Disease Physical Exam Vital Signs Vital Signs - First Documented 08/04/19 15:50 Temp 37.2 Pulse 67 Resp 18 B/P (MAP) 179/92 (121) Pulse Ox 95 Capillary Refill : Height/Weight/BMI Height: 5'4.00" Weight: 300lbs. 0.0oz. 136.399109tn; 52.64 BMI Method:Stated General Appearance: WD/WN, no apparent distress, obese HEENT: PERRL/EOMI, pharynx normal Neck: full range of motion, supple Respiratory: lungs clear, normal breath sounds Cardiovascular: regular rate, rhythm, no murmur Peripheral Pulses: 2+ Dorsalis Pedis (R), 2+ Left Dors-Pedis (L), 2+ Radial Pulses (R), 2+ Radial Pulses (L) Gastrointestinal: soft, tenderness (left upper quadrant) Extremities: non-tender, normal inspection Back: normal inspection, no CVA tenderness, no vertebral tenderness Neurologic/Psychiatric: alert, oriented x 3 Skin: normal color, warm/dry Progress/Results/Core Measures Results/Orders Lab Results Laboratory Tests Test 08/04/19 16:02 Range/Units White Blood Count 9.1 4.3-11.0 10^3/uL Red Blood Count 5.13 4.35-5.85 10^6/uL Hemoglobin 15.4 11.5-16.0 G/DL Hematocrit 45 35-52 % Mean Corpuscular Volume 88 80-99 FL Mean Corpuscular Hemoglobin 30 25-34 PG Mean Corpuscular Hemoglobin Concent 34 32-36 G/DL Red Cell Distribution Width 14.4 10.0-14.5 % Platelet Count 302 130-400 10^3/uL Mean Platelet Volume 10.5 H 7.4-10.4 FL Neutrophils (%) (Auto) 88 H 42-75 % Lymphocytes (%) (Auto) 8 L 12-44 % Monocytes (%) (Auto) 4 0-12 % Eosinophils (%) (Auto) 0 0-10 % Basophils (%) (Auto) 0 0-10 % Neutrophils # (Auto) 8.0 H 1.8-7.8 X 10^3 Lymphocytes # (Auto) 0.7 L 1.0-4.0 X 10^3 Monocytes # (Auto) 0.4 0.0-1.0 X 10^3 Eosinophils # (Auto) 0.0 0.0-0.3 10^3/uL Basophils # (Auto) 0.0 0.0-0.1 10^3/uL Neutrophils % (Manual) 85 % Lymphocytes % (Manual) 8 % Monocytes % (Manual) 4 % Eosinophils % (Manual) 1 % Basophils % (Manual) 1 % Band Neutrophils 1 % Sodium Level 140 135-145 MMOL/L Potassium Level 3.5 L 3.6-5.0 MMOL/L Chloride Level 103 98-107 MMOL/L Carbon Dioxide Level 23 21-32 MMOL/L Anion Gap 14 5-14 MMOL/L Blood Urea Nitrogen 10 7-18 MG/DL Creatinine 0.87 0.60-1.30 MG/DL Estimat Glomerular Filtration Rate > 60 BUN/Creatinine Ratio 11 Glucose Level 166 H 70-105 MG/DL Calcium Level 9.6 8.5-10.1 MG/DL Corrected Calcium 9.5 8.5-10.1 MG/DL Total Bilirubin 0.8 0.1-1.0 MG/DL Aspartate Amino Transf (AST/SGOT) 115 H 5-34 U/L Alanine Aminotransferase (ALT/SGPT) 159 H 0-55 U/L Alkaline Phosphatase 191 H 40-136 U/L C-Reactive Protein High Sensitivity 0.62 H 0.00-0.50 MG/DL Total Protein 7.6 6.4-8.2 GM/DL Albumin 4.1 3.2-4.5 GM/DL Amylase Level 57 25-125 U/L Lipase 25 8-78 U/L My Orders Orders - SKY PURCELL MD Amylase (08/04/19 16:04) Cbc With Automated Diff (08/04/19 16:04) Comprehensive Metabolic Panel (08/04/19 16:04) Hs C Reactive Protein (08/04/19 16:04) Lipase (08/04/19 16:04) Promethazine Injection (Phenergan Injec (08/04/19 16:04) Ondansetron Injection (Zofran Injectio (08/04/19 16:15) Lactated Ringers (Lr 1000 Ml Iv Solution (08/04/19 16:04) Ed Iv/Invasive Line Start (08/04/19 16:04) Fentanyl Injection (Sublimaze Injection (08/04/19 16:04) Promethazine Injection (Phenergan Injec (08/04/19 16:00) Lactated Ringers (Lr 1000 Ml Iv Solution (08/04/19 16:00) Ondansetron Injection (Zofran Injectio (08/04/19 16:00) Manual Differential (08/04/19 16:02) Lactated Ringers (Lr 1000 Ml Iv Solution (08/04/19 16:58) Medications Given in ED Current Medications Medications Dose Ordered Sig/Candi Route Start Time Stop Time Status Last Admin Dose Admin Lactated Ringer's 1,000 ml @ 0 mls/hr Q0M ONCE IV 08/04/19 16:58 08/04/19 16:59 DC 08/04/19 17:01 1,000 MLS/HR Ondansetron HCl 4 mg ONCE ONCE IVP 08/04/19 16:15 08/04/19 16:16 DC 08/04/19 16:10 4 MG Vital Signs/I&O 08/04/19 15:50 Temp 37.2 Pulse 67 Resp 18 B/P (MAP) 179/92 (121) Pulse Ox 95 Progress Progress Note : Progress Note Seen and evaluated. IV, labs, LR 1 L bolus, Zofran 4 mg IV, Phenergan 25 mg IV and fentanyl 50 g IV ordered. Previous admission results reviewed as well as CT scan. Monitor patient. 1715:Further delineation from the patient regarding onset of pain shows that the pain started about 30 minutes after eating a more normal meal last night. She has been doing the clear liquids and advancing to the small meals but she did eat a bigger meal last night. We have initiated repeat dose of LR 1 L bolus to ensure that she's hydrated. Labs are reviewed and do not show any significant findings. I believe the patient will be safe for discharge home and has no indication for admission at this point. I did discuss this with the patient and family who agreed. We will readdress after fluids complete. 1740: Patient walked to the bathroom without difficulty. Nausea resolved. She states she is feeling a little better. I will send another prescription for the Phenergan. Discharged home with return precautions. Patient verbalize understa nding instructions and agreement with plan. Departure Impression Primary Impression: Upper abdominal pain Additional Impression: Nausea and vomiting Qualified Codes: R11.2 - Nausea with vomiting, unspecified Disposition: HOME, SELF-CARE Condition: Improved Departure-Patient Inst. Decision time for Depature: 17:42 Referrals: NO,LOCAL PHYSICIAN (PCP) Primary Care Physician TURNER GARVEY (Family) Primary Care Physician Patient Instructions: Acute Abdomen (Belly Pain), Adult (DC), Nausea and Vomiting, Adult Add. Discharge Instructions: Take medications as directed. Clear liquid diet for the next day or 2 and then advance slowly to light/soft diet. Continue pancreatitis diet from there and advance slowly to a more normal diet over the next several weeks. Drink plenty of fluids. Follow-up with your Dr. in a few days for recheck. Return for worse pain, fever, vomiting, weakness, breathing problems or other concerns as needed. Scripts Promethazine HCl (Promethazine Tablet) 25 Mg Tablet 25 MG PO Q8H PRN for NAUSEA/VOMITING, #15 TAB 0 Refills Prov: SKY PURCELL MD 08/04/19 SKY PURCELL MD Aug 04, 2019 16:13
[2019-08-04] MEDS ORDERED: ONDANSETRON 4 MG/2 ML (SDV) Z0FRAN IVP ONE (16:15)
[2019-08-04 16:30] LABS: ALANINE AMINOTRANSFERASE 159 U/L (0-55); ALBUMIN 4.1 GM/DL (3.2-4.5); ALKALINE PHOSPHATASE 191 U/L (40-136); AMYLASE 57 U/L (25-125); BILIRUBIN,TOTAL 0.8 MG/DL (0.1-1.0); BUN/CREATININE RATIO 11; CALCIUM 9.6 MG/DL (8.5-10.1); CARBON DIOXIDE 23 MMOL/L (21-32); CHLORIDE 103 MMOL/L (98-107); CREATININE SERUM 0.87 MG/DL (0.60-1.30); GFR ESTIMATED > 60; GLUCOSE 166 MG/DL (70-105); LIPASE 25 U/L (8-78); POTASSIUM 3.5 MMOL/L (3.6-5.0); SODIUM 140 MMOL/L (135-145); TOTAL PROTEIN 7.6 GM/DL (6.4-8.2)
[2019-08-04 16:47] LABS: BAND NEUTROPHILS 1 %; BASOPHILS % (MANUAL) 1 %; EOSINOPHILS % (MANUAL) 1 %; LYMPHOCYTES % (MANUAL) 8 %; MONOCYTES % (MANUAL) 4 %; NEUTROPHILS % (MANUAL) 85 %
[2019-08-04] MEDS ORDERED: PROM25TA14 PO (17:44)
[2019-08-04 18:30] VITALS: BP 179/92
== END 2019-08-04 18:29 | disposition home or self-care (01) ==
LOC: ER 15:51 → EDUNIT# 15:51 → ER 18:29
DX: R10.12 Left upper quadrant pain (principal); R11.2 Nausea with vomiting, unspecified; J45.909 Unspecified asthma, uncomplicated; I10 Essential (primary) hypertension; E11.9 Type 2 diabetes mellitus without complications; F41.9 Anxiety disorder, unspecified; K21.9 Gastro-esophageal reflux disease without esophagitis; Z91.041 Radiographic dye allergy status; Z88.2 Allergy status to sulfonamides; Z91.040 Latex allergy status; Z88.8 Allergy status to other drugs, medicaments and biological substances; Z88.5 Allergy status to narcotic agent; Z96.653 Presence of artificial knee joint, bilateral
CPT/HCPCS: 36415; 80053; 82150; 83690; 85007; 85027; 86141

== ENCOUNTER 2019-10-02 03:03 | Inpatient (IN) | payer MEDICARE, OTHER ==
[~2019-10-02] VITALS: Ht 165.1 cm; Wt 116.9 kg
[2019-10-02] MEDS ORDERED: LACTATED RINGERS 1,000 ML IV ONE (03:21)
[2019-10-02 03:29] LABS: BASOPHILS % (AUTO) 0 % (0-10); EOSINOPHILS % (AUTO) 0 % (0-10); HEMATOCRIT 44 % (35-52); LYMPHOCYTES # (AUTO) 0.7 X 10^3 (1.0-4.0); LYMPHOCYTES % (AUTO) 10 % (12-44); MEAN CORPUSCULAR HEMOGLOBIN 30 PG (25-34); MEAN CORPUSCULAR HGB CONC 34 G/DL (32-36); MEAN CORPUSCULAR VOLUME 88 FL (80-99); MEAN PLATELET VOLUME 11.2 FL (7.4-10.4); MONOCYTES # (AUTO) 0.3 X 10^3 (0.0-1.0); MONOCYTES % (AUTO) 5 % (0-12); NEUTROPHILS % (AUTO) 85 % (42-75); PLATELET COUNT 192 10^3/uL (130-400); RED CELL DISTRIBUTION WIDTH 14.2 % (10.0-14.5)
[2019-10-02] MEDS ORDERED: fentaNYL INJECTION 100 MCG/2 ML AMP IVP STA ×2 (03:29→05:45)
[2019-10-02] MEDS ORDERED: ONDANSETRON 4 MG/2 ML (SDV) Z0FRAN IVP ONE ×2 (03:30→05:30)
[2019-10-02 03:37] LABS: CLARITY,URINE SL CLOUDY; COLOR,URINE AMBER; GLUCOSE, URINE (UA) NEGATIVE (NEGATIVE); KETONES,URINE TRACE (NEGATIVE); LEUKOCYTE ESTERASE ,URINE TRACE (NEGATIVE); NITRITE,URINE NEGATIVE (NEGATIVE); PROTEIN,URINE TRACE (NEGATIVE)
[2019-10-02 03:38] LABS: ALBUMIN 3.9 GM/DL (3.2-4.5); CHLORIDE 103 MMOL/L (98-107); POTASSIUM 3.6 MMOL/L (3.6-5.0); SODIUM 139 MMOL/L (135-145)
--- NOTE | 2019-10-02 03:38 | ED Abdominal Pain ---
General Chief Complaint: Abdominal/GI Problems Stated Complaint: VOMITING,ABD PAIN Nursing Triage Note: Pt ambulates to [facility] 5 with c/o epigastric pain, N/V for 24 hrs. Pt states she's vomited 5 x in last 24 hrs, tried to take phenergyn but threw that up. Pt had pancreatitis 3 months ago and states her symptoms are the same. Sepsis Screen: No Definite Risk Source of Information: Patient History of Present Illness Date Seen by Provider: Oct 02, 2019 Time Seen by Provider: 03:18 Initial Comments PT ARRIVES VIA POV FROM HOME, AMBULATES INTO ER ON HER OWN. PT STATES SHE BEGAN HAVING SOME LEFT UPPER QUADRANT ABDOMINAL PAIN WENT ON LIQUID DIET FOR 3 DAYS AND IT GOT BETTER, THEN WENT TO SOFT FOODS STATES YESTERDAY AFTERNOON 10/01/19, SHE BEGAN HAVING SEVERE EPIGASTRIC PAIN, FOLLOWED BY NAUSEA AND VOMITED HAS VOMITED X 5-NO HEMATEMESIS OR COFFEE GROUND EMESIS HAD NORMAL BM YESTERDAY--NO BLACK/BLOODY/TARRY STOOLS NO PROBLEMS URINATING NO FEVER STATES SHE HAD PANCREATITIS 3 MONTHS AGO AND THIS FEELS THE SAME HAS HAD CHOLECYSTECTOMY, HYST/BSO/APPY HAS HAD DIVERTICULITIS AND COLONOSCOPY IN PAST, BUT NO SURGERY ON HER BOWELS. NO KNOWN SICK CONTACTS OR EXPOSURE TO COVID-19. PT STATES SHE HAS BEEN STAYING AT HOME, PER STATE [facility]AND[facility]. PCP: [facility] GARVEY Allergies and Home Medications Allergies Coded Allergies: Iodinated Contrast Media (Verified Allergy, Severe, 07/20/19) Sulfa (Sulfonamide Antibiotics) (Unverified Allergy, Mild, 12/20/08) indomethacin (Unverified Allergy, Mild, 12/20/08) iodine (Unverified Allergy, Mild, 12/20/08) lansoprazole (Unverified Allergy, Mild, 12/20/08) latex (Unverified Allergy, Mild, 12/20/08) meperidine (Unverified Allergy, Mild, 12/20/08) paroxetine (Unverified Allergy, Mild, 12/20/08) ciprofloxacin (Verified Allergy, Unknown, 07/20/19) Uncoded Allergies: ANIMAL DANDER (Allergy, Mild, 12/20/08) TAPE (Allergy, Mild, 12/20/08) Home Medications Albuterol Sulfate 8.5 Gm Hfa.aer.ad, 2 PUFF IH Q4H PRN for SHORTNESS OF BREATH, (Reported) Ascorbic Acid 100 Mg Tablet, 100 MG PO DAILY, (Reported) Biotin 10 Mg Tablet, 10 MG PO DAILY, (Reported) Calcium Carbonate 600 Mg Tablet, 600 MG PO DAILY, (Reported) Escitalopram Oxalate 10 Mg Tablet, 10 MG PO DAILY, (Reported) Hydrocodone Bit/Acetaminophen 1 Tab Tab, 1 TAB PO Q4-6HR PRN for PAIN-MODERATE Prescribed by: EMMANUEL YOUNG on 07/24/19 1151 Lisinopril 10 Mg Tablet, 10 MG PO DAILY, (Reported) Loratadine 10 Mg Tablet, 10 MG PO DAILY PRN for ALLERGY SYMPTOMS, (Reported) Magnesium 250 Mg Tablet, 250 MG PO DAILY, (Reported) Montelukast Sodium 10 Mg Tablet, 10 MG PO HS, (Reported) Multivitamin 1 Each Tablet, 1 EACH PO DAILY, (Reported) Omeprazole 20 Mg Capsule.dr, 20 MG PO HS, (Reported) Promethazine HCl 25 Mg Tablet, 25 MG PO Q6H PRN for NAUSEA/VOMITING Prescribed by: EMMANUEL YOUNG on 07/24/19 115 Promethazine HCl 25 Mg Tablet, 25 MG PO Q8H PRN for NAUSEA/VOMITING Prescribed by: SKY PURCELL on 08/04/19 174 Patient Home Medication List Home Medication List Reviewed: Yes Review of Systems Review of Systems Constitutional: no symptoms reported; No chills, No diaphoresis, No fever Respiratory: No Symptoms Reported; Denies Cough, Denies Shortness of Air Cardiovascular: No Symptoms Reported; Denies Chest Pain Gastrointestinal: See HPI, Abdominal Pain; Denies Constipated, Denies Diarrhea; Nausea, Poor Appetite, Vomiting Genitourinary: No Symptoms Reported Musculoskeletal: no symptoms reported Skin: no symptoms reported Psychiatric/Neurological: No Symptoms Reported Endocrine: No Symptoms Reported Hematologic/Lymphatic: No Symptoms Reported Past Nlstxvb-Rsqtlc-Hzfqec Hx Past Med/Social Hx: Reviewed and Corrections made Patient Social History Alcohol Use: Denies Use Recreational Drug Use: No Smoking Status: Never a Smoker Recent Foreign Travel: No Contact w/Someone Who Travel: No Recent Infectious Disease Expo: No Recent Hopitalizations: No Immunizations Up To Date Tetanus Booster (TDap): Unknown PED Vaccines UTD: Yes Date of Influenza Vaccine: Mar 26, 2019 Seasonal Allergies Seasonal Allergies: No Past Medical History Surgeries: Yes (BEN; HYST/BSO/APPY;EGD/COLONOSCOPIES;URETERAL STENTS; BILAT TKR;BREAST BX) Appendectomy, Breast, Gallbladder, Hysterectomy, Joint Replacement, Oophorectomy, Orthopedic, Renal Respiratory: Yes Asthma Currently Using CPAP: No Currently Using BIPAP: No Cardiac: Yes Hypertension Neurological: No Reproductive Disorders: No Female Reproductive Disorders: Menstrual Problems 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, 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 Sexually Transmitted Disease: No HIV/AIDS: No Genitourinary: Yes (URETERAL STENTS) Bladder Infection, Kidney Stones Gastrointestinal: Yes (EGD/COLONOSCOPIES;) Gastroesophageal Reflux, Chronic Constipation, Diverticulosis, Hemorrhoids, Pancreatitis, Chronic Diarrhea, Hiatal Hernia, Gall Bladder Disease, Irritable Bowel Musculoskeletal: Yes (BROKEN LEG CHILD) Arthritis, Fractures Endocrine: Yes (MORBID OBESITY) Diabetes, Non-Insulin dep HEENT: No Loss of Vision: Denies Hearing Impairment: Denies Cancer: No Psychosocial: Yes Anxiety Integumentary: No Blood Disorders: No Adverse Reaction/Blood Tranf: No Family Medical History Alcoholism 19 FATHER G8 SISTER G8 SISTER Arthritis 19 FATHER 19 MOTHER G8 SISTER G8 SISTER G8 SISTER G8 SISTER Cardiovascular disease 19 MOTHER Cataracts 19 FATHER 19 MOTHER Deafness or hearing loss 19 FATHER 19 MOTHER Dementia 19 MOTHER Drug abuse G8 BROTHER Fibrocystic disease of breast 19 MOTHER G8 SISTER G8 SISTER Headache disorder 19 FATHER 19 MOTHER G8 BROTHER G8 SISTER G8 SISTER G8 SISTER G8 SISTER Hypertension 19 FATHER Kidney disease 19 FATHER Psychosocial problem G8 BROTHER Respiratory disorder G8 SISTER G8 SISTER G8 SISTER G8 SISTER CAD Under 55 Years Old, Hypertension, Renal Disease Physical Exam Vital Signs Vital Signs - First Documented 10/02/19 03:14 Temp 36.3 Pulse 76 Resp 18 B/P (MAP) 153/86 (108) Pulse Ox 97 O2 Delivery Room Air Capillary Refill : Less Than 3 Seconds Height/Weight/BMI Height: 5'4.00" Weight: 300lbs. 0.0oz. 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, no motor/sensory deficits, alert, oriented x 3, other (ANXIOUS) Skin: normal color, warm/dry Progress/Results/Core Measures Results/Orders Lab Results Laboratory Tests Test 10/02/19 03:20 10/02/19 03:30 Range/Units White Blood Count 7.0 4.3-11.0 10^3/uL Red Blood Count 5.02 4.35-5.85 10^6/uL Hemoglobin 15.0 11.5-16.0 G/DL Hematocrit 44 35-52 % Mean Corpuscular Volume 88 80-99 FL Mean Corpuscular Hemoglobin 30 25-34 PG Mean Corpuscular Hemoglobin Concent 34 32-36 G/DL Red Cell Distribution Width 14.2 10.0-14.5 % Platelet Count 192 130-400 10^3/uL Mean Platelet Volume 11.2 H 7.4-10.4 FL Neutrophils (%) (Auto) 85 H 42-75 % Lymphocytes (%) (Auto) 10 L 12-44 % Monocytes (%) (Auto) 5 0-12 % Eosinophils (%) (Auto) 0 0-10 % Basophils (%) (Auto) 0 0-10 % Neutrophils # (Auto) 6.0 1.8-7.8 X 10^3 Lymphocytes # (Auto) 0.7 L 1.0-4.0 X 10^3 Monocytes # (Auto) 0.3 0.0-1.0 X 10^3 Eosinophils # (Auto) 0.0 0.0-0.3 10^3/uL Basophils # (Auto) 0.0 0.0-0.1 10^3/uL Prothrombin Time 13.8 12.2-14.7 SEC INR Comment 1.0 0.8-1.4 Activated Partial Thromboplast Time 35 24-35 SEC Sodium Level 139 135-145 MMOL/L Potassium Level 3.6 3.6-5.0 MMOL/L Chloride Level 103 98-107 MMOL/L Carbon Dioxide Level 22 21-32 MMOL/L Anion Gap 14 5-14 MMOL/L Blood Urea Nitrogen 12 7-18 MG/DL Creatinine 0.84 0.60-1.30 MG/DL Estimat Glomerular Filtration Rate > 60 BUN/Creatinine Ratio 14 Glucose Level 198 H 70-105 MG/DL Calcium Level 9.3 8.5-10.1 MG/DL Corrected Calcium 9.4 8.5-10.1 MG/DL Magnesium Level 1.8 1.6-2.4 MG/DL Total Bilirubin 1.5 H 0.1-1.0 MG/DL Aspartate Amino Transf (AST/SGOT) 347 H 5-34 U/L Alanine Aminotransferase (ALT/SGPT) 196 H 0-55 U/L Alkaline Phosphatase 149 H 40-136 U/L Total Protein 7.4 6.4-8.2 GM/DL Albumin 3.9 3.2-4.5 GM/DL Amylase Level 97 25-125 U/L Lipase 330 H 8-78 U/L Serum Alcohol < 10 <10 MG/DL Urine Color SADAF H Urine Clarity SL CLOUDY Urine pH 6.0 5-9 Urine Specific [place] 1.025 H 1.016-1.022 Urine Protein TRACE H NEGATIVE Urine Glucose (UA) NEGATIVE NEGATIVE Urine Ketones TRACE H NEGATIVE Urine Nitrite NEGATIVE NEGATIVE Urine Bilirubin 2+ H NEGATIVE Urine Urobilinogen 1.0 < = 1.0 MG/DL Urine Leukocyte Esterase TRACE H NEGATIVE Urine RBC (Auto) NEGATIVE NEGATIVE Urine RBC RARE /HPF Urine WBC 0-2 /HPF Urine Squamous Epithelial Cells 5-10 /HPF Urine Crystals NONE /LPF Urine Bacteria TRACE /HPF Urine Casts NONE /LPF Urine Mucus MODERATE H /LPF Urine Culture Indicated NO My Orders Orders - ROLA RANDALL DO Ed Iv/Invasive Line Start (10/02/19 03:21) Ekg Tracing (10/02/19 03:21) Monitor-Rhythm Ecg Trace Only (10/02/19 03:21) Amylase (10/02/19 03:21) Cbc With Automated Diff (10/02/19 03:21) Comprehensive Metabolic Panel (10/02/19 03:21) Lipase (10/02/19 03:21) Magnesium (10/02/19 03:21) Protime With Inr (10/02/19 03:21) Partial Thromboplastin Time (10/02/19 03:21) Ua Culture If Indicated (10/02/19 03:21) Ed Iv/Invasive Line Start (10/02/19 03:21) Lactated Ringers (Lr 1000 Ml Iv Solution (10/02/19 03:21) Ondansetron Injection (Zofran Injectio (10/02/19 03:30) Acute Abd Series (10/02/19 03:29) Ct Abdomen/Pelvis Wo (10/02/19 03:29) Fentanyl Injection (Sublimaze Injection (10/02/19 03:29) Alcohol (10/02/19 03:54) Ondansetron Injection (Zofran Injectio (10/02/19 05:30) Fentanyl Injection (Sublimaze Injection (10/02/19 05:38) Fentanyl Injection (Sublimaze Injection (10/02/19 05:45) Medications Given in ED Current Medications Medications Dose Ordered Sig/Candi Route Start Time Stop Time Status Last Admin Dose Admin Lactated Ringer's 1,000 ml @ 0 mls/hr Q0M ONCE IV 10/02/19 03:21 10/02/19 03:24 DC 10/02/19 03:34 0 MLS/HR Ondansetron HCl 4 mg ONCE ONCE IVP 10/02/19 03:30 10/02/19 03:31 DC 10/02/19 03:34 4 MG Ondansetron HCl 4 mg ONCE ONCE IVP 10/02/19 05:30 10/02/19 05:31 DC 10/02/19 05:43 4 MG Vital Signs/I&O 10/02/19 03:14 Temp 36.3 Pulse 76 Resp 18 B/P (MAP) 153/86 (108) Pulse Ox 97 O2 Delivery Room Air 2 Blood Pressure Mean: 108 Progress Progress Note : Progress Note PAIN EASED WITH FENTANYL, NAUSEA EASED WITH ZOFRAN UNEVENTFUL STAY MARKED DELAY IN OBTAINING CT REPORT Initial ECG Impression Date: Oct 02, 2019 Initial ECG Impression Time: 03:36 Initial ECG Rate: 66 Initial ECG Rhythm: Normal Sinus Diagnostic Imaging Comments ACUTE ABDOMEN XRAYS--NO ACUTE PROCESS, PENDING RADIOLOGIST REVIEW CT ABDOMEN/PELVIS--NO ACUTE PROCESS, DIVERTICULOSIS WITH OUT ACUTE DIVERTICULITIS. PER [facility] VIA FAX AT 0550 Reviewed: Reviewed by Me Departure Communication (Admissions) [id number]--SPOKE WITH DR. YOUNG, HOSPITALIST AMBULANCE DISPATCHER FOR [facility]. ACCEPTS PT FOR ADMIT. WILL CONSULT SURGERY. Impression Primary Impression: Pancreatitis Additional Impressions: Elevated liver enzymes NIDDM Disposition: ADMITTED INPATIENT Condition: Improved Admissions Decision to Admit Reason: Admit from ER (General) Decision to Admit/Date: Oct 02, 2019 Time/Decision to Admit Time: 06:00 Departure-Patient Inst. Referrals: NO,LOCAL PHYSICIAN (PCP) Primary Care Physician TURNER GARVEY (Family) Primary Care Physician ROLA RANDALL DO Oct 02, 2019 03:38
[2019-10-02 03:40] LABS: AMYLASE 97 U/L (25-125); CALCIUM 9.3 MG/DL (8.5-10.1)
[2019-10-02 03:41] LABS: GLUCOSE 198 MG/DL (70-105); PROTHROMBIN TIME PATIENT 13.8 SEC (12.2-14.7); TOTAL PROTEIN 7.4 GM/DL (6.4-8.2)
[2019-10-02 03:42] LABS: CARBON DIOXIDE 22 MMOL/L (21-32)
[2019-10-02 03:43] LABS: BILIRUBIN,TOTAL 1.5 MG/DL (0.1-1.0)
[2019-10-02 03:44] LABS: ALKALINE PHOSPHATASE 149 U/L (40-136); CREATININE SERUM 0.84 MG/DL (0.60-1.30); GFR ESTIMATED > 60
[2019-10-02 03:45] LABS: BUN/CREATININE RATIO 14
[2019-10-02 03:45] LABS: BILIRUBIN,URINE 2+ (NEGATIVE)
[2019-10-02 03:46] LABS: BACTERIA,URINE TRACE /HPF; RBC,URINE RARE /HPF; WBC,URINE 0-2 /HPF
[2019-10-02 03:47] LABS: ALANINE AMINOTRANSFERASE 196 U/L (0-55); MAGNESIUM 1.8 MG/DL (1.6-2.4)
[2019-10-02 03:48] LABS: LIPASE 330 U/L (8-78)
[2019-10-02] MEDS ORDERED: fentaNYL INJECTION 100 MCG/2 ML AMP ONE (05:38)
--- NOTE | 2019-10-02 06:55 | NUR ---
JOVANI LUU admitted to room 405-1, with an admitting diagnosis of PANCREATITIS, on 10/02/19 from ED via WHEELCHAIR, accompanied by STAFF.JOVANI LUU introduced to surroundings, call light, bed controls, phone, TV, temperature control, lights, meal times, smoking policy, visitor policy, side rail policy, bathrooms and showers. Patient Rights given to patient in the handbook. JOVANI LUU verbalizes understanding that [facility] is not responsible for the loss or damage to any personal effects or valuables that are kept in the patients posession during their hospitalization. JOVANI LUU verbalizes understanding of Interdisciplinary Patient Education. Patient and/or family were informed about the Rapid Response Team and its purpose.
--- NOTE | 2019-10-02 06:56 | Diagnostic Imaging Report ---
INDICATION: Abdominal pain COMPARISON: None FINDINGS: Acute abdominal series demonstrates normal chest. There is no free air under the diaphragm. The bowel gas pattern is nondistended. There is slight constipation. Osseous structures are unremarkable. There is a nonobstructive stone suspected in the inferior pole of the right kidney. IMPRESSION: 1. Slight constipation 2. No bowel obstruction or free air 3. Suspect right nephrolithiasis. Dictated by: Dictated on workstation # [id number]
--- NOTE | 2019-10-02 07:28 | NUR ---
DR CRISTOBAL CONSULTED PER ORDER
--- NOTE | 2019-10-02 07:34 | Diagnostic Imaging Report ---
EXAM: CT Abdomen and Pelvis Without Intravenous Contrast. INDICATION: Persistent abdominal pain with nausea and vomiting. Comparison with 07/20/2019 CT scan. FINDINGS: There is again noted diffuse diverticulosis of the sigmoid colon without diverticulitis. The appendix appears to be absent. Small bowel appears normal. There is no bowel wall thickening. The stomach is not distended. There is again noted nonobstructing calculus lower pole right kidney measuring 6 mm. Small well-circumscribed exophytic nodule off the upper pole left kidney also stable. No hydronephrosis. Liver appears normal. Gallbladder is absent. Bile ducts are not dilated. The pancreas and spleen are normal. The adrenal glands are not enlarged. No free air or free fluid. No blastic or lytic bony changes. The lumbosacral spine shows good alignment with moderate degenerative change. IMPRESSION: 1. Rather marked diverticulosis of the sigmoid colon without changes that would indicate acute diverticulitis at this time. Specifically no free air, free fluid or abscesses. 2. Stable 1 cm exophytic nodule off the upper pole left kidney as well as nonobstructing calculus lower pole right kidney. These findings are concordant with the preliminary report. Dictated by: Dictated on workstation # [id number]
[2019-10-02] MEDS: 1/2 NS W/KCL 20 MEQ/L 1,000 ML IV SCH ×3 (07:50→21:35)
[2019-10-02 08:00] VITALS: BP 146/71
[2019-10-02] MEDS: inSUlin ASPART (NovoLOG) 1 UNIT/0.01 ML (CHARGE PER UNIT) SC SCH ×3 (08:11→17:25)
[2019-10-02 09:19] VITALS: BP 146/71
[2019-10-02] MEDS ORDERED: DIPH25CA79 PO (09:26)
[2019-10-02] MEDS ORDERED: PROM25TA14 PO (09:26)
--- NOTE | 2019-10-02 09:27 | NUR ---
SPOKE WITH PT AND WENT THRU THE EXT MED HISTORY TO COMPLETE THE MED REC PT INDICATES THAT SINCE HER LAST HOSPITAL STAY SHE HAS QUIT TAKING ALL HER PRESCRIPTION AND MOST OTC ITEMS. THE PT HAS STOPPED THE FOLLOWING MEDICATIONS: OMEPRAZOLE 20MG MONTELUKAST 10MG LISINOPRIL 10MG LEXAPRO 10MG CURRENT OTC MEDS: LALI FRY
--- NOTE | 2019-10-02 09:45 | History & Physical-Hospitalist ---
History of Present Illness HPI/Chief Complaint CC: Acute and recurrent pancreatitis HPI: This is a 64yoWF clinic patient of [facility] who is known to me from prior hospital stay 08/02/19 for acute pancreatitis who presents to the ER with N/V and abdominal pain that worsened to the point she had to come to ER. Symptoms never really left her since DC from inpatient 2 months ago but flared up 10 days ago a lot worse so she changed to CLD on her own and it helped a bit and she started researching this condition on [facility] and she is aware of the condition of chronic pancreatitis. Dr Morgan has been consulted. I have started Dilaudid pain meds and Zofran and those meds seem to be helping. Source: patient Exam Limitations: no limitations Date Seen 10/02/19 Time Seen by a Provider: 09:45 Attending Physician Saniya Polanco DO PCP isai,[facility] Referring Physician Date of Admission Oct 02, 2019 at 06:00 Home Medications & Allergies Home Medications Reviewed patient Home Medication Reconciliation performed by pharmacy medication reconciliations automated equipment engineer technician and/or nursing. Patients Allergies have been reviewed. Allergies Allergies Coded Allergies Iodinated Contrast Media (Verified Allergy, Severe, 07/20/19) Sulfa (Sulfonamide Antibiotics) (Unverified Allergy, Mild, 12/20/08) indomethacin (Unverified Allergy, Mild, 12/20/08) iodine (Unverified Allergy, Mild, 12/20/08) lansoprazole (Unverified Allergy, Mild, 12/20/08) latex (Unverified Allergy, Mild, 12/20/08) meperidine (Unverified Allergy, Mild, 12/20/08) paroxetine (Unverified Allergy, Mild, 12/20/08) ciprofloxacin (Verified Allergy, Unknown, 07/20/19) Uncoded Allergies ANIMAL DANDER ( Allergy, Mild, 12/20/08) TAPE ( Allergy, Mild, 12/20/08) Past [id number]-[id number] Hx Past Med/Social Hx: Reviewed Nursing Past Med/Soc Hx, Reviewed and Corrections made Patient Social History Marrital Status: single Employed/Student: retired Alcohol Use: Denies Use Recreational Drug Use: No Smoking Status: Never a Smoker Recent Foreign Travel: No Contact w/other who traveled: No Recent Hopitalizations: No Recent Infectious Disease Expo: No Immunizations Up To Date Tetanus Booster (TDap): Unknown Pediatric: Yes Date of Influenza Vaccine: Mar 26, 2019 Seasonal Allergies Seasonal Allergies: No Past Medical History Surgeries: Appendectomy, Breast, Gallbladder, Hysterectomy, Joint Replacement, Oophorectomy, Orthopedic, Renal Currently Using CPAP: No Currently Using BIPAP: No Cardiac: Hypertension Reproductive: No Sexually Transmitted Disease: No HIV/AIDS: No Female Reproductive Disorders: Menstrual Problems Hysterectomy, Menopausal Genitourinary: Bladder Infection, Kidney Stones Gastrointestinal: Gastroesophageal Reflux, Chronic Constipation, Diverticulosis, Hemorrhoids, Pancreatitis, Chronic Diarrhea, Hiatal Hernia, Gall Bladder Disease, Irritable Bowel Musculoskeletal: Arthritis, Fractures Endocrine: Diabetes, Non-Insulin dep Loss of Vision: Denies Hearing Impairment: Denies Psychosocial: Anxiety History of Blood Disorders: No Adverse Reaction to Blood Wilkinson: No Family History Alcoholism 19 FATHER G8 SISTER G8 SISTER Arthritis 19 FATHER 19 MOTHER G8 SISTER G8 SISTER G8 SISTER G8 SISTER Cardiovascular disease 19 MOTHER Cataracts 19 FATHER 19 MOTHER Deafness or hearing loss 19 FATHER 19 MOTHER Dementia 19 MOTHER Drug abuse G8 BROTHER Fibrocystic disease of breast 19 MOTHER G8 SISTER G8 SISTER Headache disorder 19 FATHER 19 MOTHER G8 BROTHER G8 SISTER G8 SISTER G8 SISTER G8 SISTER Hypertension 19 FATHER Kidney disease 19 FATHER Psychosocial problem G8 BROTHER Respiratory disorder G8 SISTER G8 SISTER G8 SISTER G8 SISTER CAD Under 55 Years Old, Hypertension, Renal Disease Review of Systems Constitutional: see HPI Gastrointestinal: abdominal pain, loss of appetite, melena, nausea, vomiting Physical Exam Physical Exam Vital Signs Vital Signs - First Documented 10/02/19 03:14 Temp 36.3 Pulse 76 Resp 18 B/P (MAP) 153/86 (108) Pulse Ox 97 O2 Delivery Room Air Capillary Refill : Less Than 3 Seconds Height, Weight, BMI Height: 5'4.00" Weight: 300lbs. 0.0oz. 136.563781sw; 42.88 BMI Method:Stated General Appearance: No Apparent Distress, Chronically ill, Obese Eyes: Right Eye Normal Inspection, Right Eye PERRL HEENT: PERRL/EOMI, Normal ENT Inspection, Pharynx Normal, Moist Mucous Membranes Neck: Full Range of Motion, Normal Inspection, Non Tender Respiratory: Chest Non Tender, Lungs Clear, Normal Breath Sounds, No Accessory Muscle Use, No Respiratory Distress Cardiovascular: Regular Rate, Rhythm, No Edema, No Gallop, No JVD, No Murmur, Normal Peripheral Pulses Gastrointestinal: Normal Bowel Sounds, No Organomegaly, No Pulsatile Mass, Soft, Tenderness Back: Normal Inspection, No CVA Tenderness, No Vertebral Tenderness Extremity: Normal Capillary Refill, Normal Inspection, Normal Range of Motion, Non Tender, No Calf Tenderness, No Pedal Edema Neurologic/Psychiatric: Alert, Oriented x3, No Motor/Sensory Deficits, Normal Mood/Affect Skin: Normal Color, Warm/Dry Lymphatic: No Adenopathy Results Results/Procedures Labs Laboratory Tests 10/02/19 03:20 Patient resulted labs reviewed. Assessment/Plan Admission Diagnosis Assessment: Acute and recurrent pancreatitis GERD Obesity HTN Plan: IV Dilaudid IVF NPO Lovenox PPI Admission Status: Inpatient Order (span 2 midnights) Reason for Inpatient Admission: pancreatitis requires 4 days Diagnosis/Problems Diagnosis/Problems (1) Pancreatitis Status: Acute (2) Elevated liver enzymes Status: Acute (3) NIDDM Clinical Quality Measures DVT/VTE Risk/Contraindication: Risk Factor Score Per Nursin RFS Level Per Nursing on Admit: 4+=Very High SANIYA POLANCO DO Oct 02, 2019 09:45
[2019-10-02] MEDS: ONDANSETRON 4 MG/2 ML (SDV) Z0FRAN IVP PRN ×2 (10:02→17:29)
[2019-10-02] MEDS: HYDROmorphone 2 MG/ML VIAL (DILAUDID) IVP PRN ×2 (10:03→19:22)
--- NOTE | 2019-10-02 10:38 | NUR ---
RD ASSESSMENT PMHx: HTN; GERD; chronic constipation; pancreatitis; chronic diarrhea; hiatal hernia; DM; obesity PT INTERACTION: Pt was awake and pleasant during nutrition assessment. Pt states current appetite is poor and has been for the last several weeks. Note pt currently NPO, per chart review. Pt states trying to follow a low-fat diet at home, and has no issues with chewing/swallowing food. Pt states previous diet attempts such as the diabetic diet and the ketogenic diet, and has started using coconut oil with her meal preparation. Pt states chronic issues with nausea and more recent issues with vomiting. Note pt had 5 episodes of emesis on 09/30, per chart review. Pt states recent issues with constipation and diarrhea, and that her last BM was 09/30. Note pt not currently on bowel regimen, per chart review. Pt states recent 25# wt loss x3mon. Note recent 11# wt loss x2mon, per chart review. Pt states current DM management is pretty good, with average fasting blood glucose levels around 100. Note unable to determine recent HbA1c, per chart review. ABNORMAL NUTRITION-RELATED LAB VALUES LOW: HIGH: glu 198; bili 1.5 ; AST 347; ALT 198; alkphos 149; lipase 330 Est. kcal needs: 3734-1322 kcal | 15-18 kcal/kg Est. Pro needs: 94-117 g Pro | 0.8-1.0 g Pro/kg PES STATEMENT: Inadequate oral intake (NI-2.1) related to loss of appetite | nausea | vomiting | constipation | diarrhea as evidenced by pt interview | chart review INTERVENTION: Note pt currently NPO. Would recommend advancing diet to consistent CHO diet, when medically able and as tolerated. Discussed with pt relationship between ketogenic diet and DM. Pt stated she stoppped the diet after feeling "like it was doing more damage than good." Discussed with pt nutrient content of coconut and its high levels of LDL cholesterol and the negative concerns it might cause. Discussed with pt other options for cooking oils and their benefits (olive oil as a source of unsaturated fats). Pt verbalized understanding of these suggestions and options. Will continue to follow and reassess as pt needs, intake, and status change. MONITOR/EVALUATE: PO Intake; Plan of Care; Hydration Status; Weight Status; Lab Values Fran Roy, MS, RD, LD
--- NOTE | 2019-10-02 11:27 | CONSULTATION REPORT ---
DATE OF SERVICE: 10/02/2019 ATTENDING PRIMARY SERVICE STATION EQUIPMENT MECHANIC: RAHAT Bowles. ADMITTING PHYSICIAN: Dr. Sherri Alas. HISTORY OF PRESENT ILLNESS: The patient is a 64-year-old female who presented to the Emergency Department this morning with pain in the left upper abdominal quadrant followed by nausea and vomiting. She states that she developed nausea and vomiting 3 days ago and then went on clear liquid diet and advanced herself to soft diet; however, had reoccurrence of pain as well as nausea and vomiting. She does not report any hematemesis, no coffee ground emesis. She also states having normal bowel movements. She has been at home and not had any sick contacts. She had an episode of pancreatitis 3 months ago and underwent a cholecystectomy and states that her symptoms were similar to that time. A CT scan was performed, which does show a mild amount of inflammation of the pancreas. There is no ductal dilatation. She also does have significant diverticulosis; however, no signs of diverticulitis. PAST MEDICAL HISTORY: Gastroesophageal reflux disease, constipation, history of diverticulosis, history of pancreatitis, history of hiatal hernia, irritable bowel syndrome, anxiety, hypertension, asthma, chronic urinary tract infection, diabetes, and history of nephrolithiasis. PAST SURGICAL HISTORY: Laparoscopic cholecystectomy, hysterectomy and appendectomy, cystoscopy and ureteral stent placement, bilateral total knee arthroplasty, and breast biopsy. ALLERGIES: IODINATED IV CONTRAST, SULFA, INDOMETHACIN, IODINE, LANSOPRAZOLE, LATEX, MEPERIDINE, PAROXETINE, CIPROFLOXACIN. MEDICATIONS: Lisinopril 10 mg daily, loratadine 10 mg daily, escitalopram 10 mg daily, albuterol MDI 2 puffs q.4 hours p.r.n., hydrocodone p.r.n., and promethazine p.r.n. SOCIAL HISTORY: Negative smoke, negative alcohol. FAMILY HISTORY: Father, hypertension. Mother, heart disease. REVIEW OF SYSTEMS: A well-nourished female, currently in no acute distress. She is not experiencing any shortness of breath or difficulty breathing. No chest pain, palpitations, or diaphoresis. Previous history of nausea and vomiting, none since being admitted. She does have some mild pain in the left upper abdominal quadrant. No hematemesis, no coffee ground emesis. She has been having normal bowel movements. No red blood per rectum, no dark tarry stools. No fever, chills, no recent inadvertent weight loss. All other review of systems negative. PHYSICAL EXAMINATION: VITAL SIGNS: Temperature 36.4, blood pressure 146/71, pulse 64, respirations 20, and pulse ox 97% on room air. CHEST: Decreased breath sounds in bilateral bases. HEART: Regular, no murmurs. EXTREMITIES: +1/3 bilateral lower extremity edema, negative Homans sign. HEENT: No scleral icterus. NECK: No cervical lymphadenopathy. ABDOMEN: Soft, nondistended. There is mild discomfort in the left upper abdominal quadrant. No palpable masses. No peritoneal signs. SKIN: Warm, dry. LABORATORY DATA: WBC 7.0, hemoglobin 15.0, hematocrit 44, platelets 192. BUN 12, creatinine 0.84. Lipase 330. Total bilirubin 1.5. ASSESSMENT AND PLAN: A 64-year-old female with mild acute pancreatitis, which may be secondary to retained stone versus biliary sludge. We will proceed with monitoring her laboratory work as well as a clear liquid diet and pain control as necessary. If this persists or worsens and her total bilirubin increases, then she will need an ERCP. Job ID: [id number] DocumentID: [id number] Dictated Date: 10/02/2019 10:27:19 Concrete Finishing Machine Operator Date: 10/02/2019 11:27:24 Dictated By: NICHOL CRISTOBAL MD
[2019-10-02 11:43] VITALS: BP 134/66
[2019-10-02] MEDS: METOCLOPRAMIDE INJ 10 MG/2 ML (REGLAN) IVP PRN (13:23)
[2019-10-02] MEDS ORDERED: PANTOPRAZOLE 40 MG (PROTONIX) VIAL IV SCH (13:45)
[2019-10-02] MEDS ORDERED: PROMETHAZINE 25 MG (PHENERGAN) TAB PO PRN ×2 (13:45→18:45)
[2019-10-02] MEDS: HYDROcodone/APAP 5 MG/325 MG (LORTAB) TAB PO PRN (13:48)
[2019-10-02 16:14] VITALS: BP 127/78
[2019-10-02] MEDS: ENOXAPARIN 40 MG/0.4 ML (LOVENOX) SYR SC SCH (17:29)
[2019-10-02] MEDS ORDERED: DOCUSATE SODIUM 100 MG (COLACE) CAP PO PRN (18:45)
[2019-10-02] MEDS ORDERED: ACETAMINOPHEN 500 MG TAB (TYLENOL) PO PRN (18:45)
[2019-10-02] MEDS ORDERED: CALCIUM CARBONATE 500 MG (TUMS) TAB.CHEW PO PRN (18:45)
[2019-10-02] MEDS ORDERED: RT-ALBUTEROL SULF 2.5 MG/3 ML PRE-MIX VIAL IH PRN (18:45)
[2019-10-02] MEDS ORDERED: ALPRAZolam 0.25 MG (XANAX) TAB PO PRN (18:45)
[2019-10-02] MEDS ORDERED: diphenhydrAMINE 25 MG TAB (BENADRYL) PO PRN (18:45)
[2019-10-02] MEDS ORDERED: MELATONIN 3 MG TABLET PO PRN (18:45)
[2019-10-02 20:18] VITALS: BP 126/77
[2019-10-02] MEDS: SENNA W/DOCUSATE (SENOKOT S) TABLET PO SCH (20:37)
[2019-10-02 23:55] VITALS: BP 143/90
[2019-10-03] MEDS: inSUlin ASPART (NovoLOG) 1 UNIT/0.01 ML (CHARGE PER UNIT) SC SCH ×4 (00:05→18:00)
[2019-10-03] MEDS: ONDANSETRON 4 MG/2 ML (SDV) Z0FRAN IVP PRN ×3 (00:19→16:34)
[2019-10-03] MEDS: HYDROmorphone 2 MG/ML VIAL (DILAUDID) IVP PRN ×4 (00:28→16:34)
[2019-10-03] MEDS: METOCLOPRAMIDE INJ 10 MG/2 ML (REGLAN) IVP PRN (00:33)
[2019-10-03] MEDS ORDERED: PROMETHAZINE INJ 25 MG/ML (PHENERGAN) AMP IVP ONE (01:00)
[2019-10-03 01:15] VITALS: BP 136/84
[2019-10-03 04:03] VITALS: BP 150/82
[2019-10-03] MEDS: 1/2 NS W/KCL 20 MEQ/L 1,000 ML IV SCH ×3 (04:29→16:35)
[2019-10-03] MEDS: ENOXAPARIN 40 MG/0.4 ML (LOVENOX) SYR SC SCH ×2 (05:21→16:35)
[2019-10-03 05:54] LABS: BASOPHILS % (AUTO) 1 % (0-10); EOSINOPHILS % (AUTO) 1 % (0-10); HEMATOCRIT 46 % (35-52); HEMOGLOBIN 15.2 G/DL (11.5-16.0); LYMPHOCYTES # (AUTO) 1.1 X 10^3 (1.0-4.0); LYMPHOCYTES % (AUTO) 18 % (12-44); MEAN CORPUSCULAR HEMOGLOBIN 30 PG (25-34); MEAN CORPUSCULAR HGB CONC 33 G/DL (32-36); MEAN CORPUSCULAR VOLUME 90 FL (80-99); MEAN PLATELET VOLUME 11.3 FL (7.4-10.4); MONOCYTES # (AUTO) 0.3 X 10^3 (0.0-1.0); MONOCYTES % (AUTO) 5 % (0-12); NEUTROPHILS # (AUTO) 4.9 X 10^3 (1.8-7.8); NEUTROPHILS % (AUTO) 76 % (42-75); PLATELET COUNT 212 10^3/uL (130-400); RED CELL DISTRIBUTION WIDTH 14.9 % (10.0-14.5); WHITE BLOOD COUNT 6.4 10^3/uL (4.3-11.0)
[2019-10-03 06:05] LABS: CHLORIDE 105 MMOL/L (98-107); POTASSIUM 3.5 MMOL/L (3.6-5.0); SODIUM 140 MMOL/L (135-145)
[2019-10-03 06:06] LABS: AMYLASE 40 U/L (25-125); CALCIUM 9.3 MG/DL (8.5-10.1)
[2019-10-03 06:07] LABS: GLUCOSE 141 MG/DL (70-105); TOTAL PROTEIN 7.4 GM/DL (6.4-8.2)
[2019-10-03 06:09] LABS: BILIRUBIN,TOTAL 0.9 MG/DL (0.1-1.0); CARBON DIOXIDE 22 MMOL/L (21-32)
[2019-10-03 06:11] LABS: ALKALINE PHOSPHATASE 162 U/L (40-136); CREATININE SERUM 0.88 MG/DL (0.60-1.30); GFR ESTIMATED > 60
[2019-10-03 06:12] LABS: BUN/CREATININE RATIO 8
[2019-10-03 06:14] LABS: ALANINE AMINOTRANSFERASE 286 U/L (0-55)
[2019-10-03 06:15] LABS: LIPASE 22 U/L (8-78)
[2019-10-03 08:00] VITALS: BP 161/79
[2019-10-03] MEDS: PROMETHAZINE INJ 25 MG/ML (PHENERGAN) AMP IM PRN ×2 (08:20→21:33)
[2019-10-03] MEDS: SENNA W/DOCUSATE (SENOKOT S) TABLET PO SCH ×2 (08:28→21:03)
[2019-10-03] MEDS ORDERED: PANTOPRAZOLE 40 MG (PROTONIX) TAB PO SCH (09:00)
[2019-10-03] MEDS: PANTOPRAZOLE 40 MG (PROTONIX) VIAL IV SCH (09:27)
--- NOTE | 2019-10-03 09:57 | Progress Note - Hospitalist ---
Subjective HPI/CC On Admission Date Seen by Provider: Oct 03, 2019 Time Seen by Provider: 10:30 CC: Acute and recurrent pancreatitis HPI: This is a 64yoWF clinic patient of [facility] who is known to me from prior hospital stay 08/02/19 for acute pancreatitis who presents to the ER with N/V and abdominal pain that worsened to the point she had to come to ER. Symptoms never really left her since DC from inpatient 2 months ago but flared up 10 days ago a lot worse so she changed to CLD on her own and it helped a bit and she started researching this condition on [facility] and she is aware of the condition of chronic pancreatitis. Dr Morgan has been consulted. I have started Dilaudid pain meds and Zofran and those meds seem to be helping. Subjective/Events-last exam Nausea continues Pain well controlled Lovenox on board since doesn't move around a lot acute on chronic Phenergan given IM she asked for IV form and did not support that formulation Scop patch will also be tried Very difficult issues considering amylase and lipase are now normal but LFT's continue to be elevated Likely component of steatosis contributing also DOMINGUEZ reported Review of Systems General: Fatigue Gastrointestinal: Nausea, Abdominal Pain Objective Exam Vital Signs Vital Signs Date Time Temp Pulse Resp B/P (MAP) Pulse Ox O2 Delivery O2 Flow Rate FiO2 10/03/19 12:00 37.0 56 20 127/70 (89) 95 Room Air Capillary Refill : Less Than 3 Seconds General Appearance: No Apparent Distress, WD/WN, Chronically ill, Obese Respiratory: Chest Non Tender, Lungs Clear, Normal Breath Sounds, No Accessory Muscle Use, No Respiratory Distress Cardiovascular: Regular Rate, Rhythm, No Edema, No Gallop, No JVD, No Murmur, Normal Peripheral Pulses Neurologic/Psychiatric: Alert, Oriented x3, No Motor/Sensory Deficits, Normal Mood/Affect Results/Procedures Lab Laboratory Tests 10/03/19 05:30 Patient resulted labs reviewed. Assessment/Plan Assessment and Plan Assess & Plan/Chief Complaint Assessment: Acute and recurrent pancreatitis Refractory N/V Elevated LFT's GERD Obesity HTN Plan: IV Dilaudid IVF NPO Lovenox PPI Anti-emetics Diagnosis/Problems Diagnosis/Problems (1) Pancreatitis Status: Acute (2) Elevated liver enzymes Status: Acute (3) NIDDM Clinical Quality Measures DVT/VTE Risk/Contraindication: Risk Factor Score Per Nursin RFS Level Per Nursing on Admit: 4+=Very High Other: CONSULT SCHEDULED WITH EMMANUEL SWAN DO Oct 03, 2019 09:57
--- NOTE | 2019-10-03 11:06 | NUR ---
RD ASSESSMENT PMHx: HTN; GERD; chronic constipation/diarrhea; pancreatitis; hiatal hernia; DM; obesity PT INTERACTION: Pt was awake and pleasant during nutrition follow-up. Pt states she has been eating poorly since last assessment. Note PO intake of "bites" x1meal, per chart review. Pt states she has episodes of emesis since last assessment. Note no BM has been recorded and pt currently on bowel regimen of Senna BID; per chart review. ABNORMAL NUTRITION-RELATED LAB VALUES LOW: K 3.5 HIGH: glu 141; AST 219; ALT 286; alkphos 162 Est. kcal needs: 3499-8495 kcal | 15-18 kcal/kg Est. Pro needs: 94-117 g Pro | 0.8-1.0 g Pro/kg PES STATEMENT: Inadequate oral intake (NI-2.1) related to loss of appetite | nausea | vomiting as evidenced by pt interview | PO intake of "bites" x1meal INTERVENTION: Continue with current diet order of Clear Liquid diet. Add Ensure Clear (vary) to meals TID, for increased kcal intake. Provides 250 kcal and 8 g Pro per serving. Will continue to follow and reassess as pt needs, intake, and status change. MONITOR/EVALUATE: PO Intake; Plan of Care; Hydration Status; Weight Status; Lab Values Fran Roy, MS, RD, LD
[2019-10-03 12:00] VITALS: BP 127/70
[2019-10-03] MEDS ORDERED: SCOPOLAMINE 1.5 MG (TRANSDERM-SCOP) PATCH TD ONE (12:15)
--- NOTE | 2019-10-03 13:06 | Progress Note ---
Subjective Date Seen by a Provider: Oct 03, 2019 Time Seen by a Provider: 09:30 Subjective/Events-last exam Patient seen with Dr. Morgan. Patient reports abdominal pain improved. Did have several episodes of vomiting greenish/brown bile last night. Denied any hematemesis. Reports does not feel like eating right now. She did report that she thinks the Phenergan is helping. No fever/chills. Objective Exam Vital Signs Date Time Temp Pulse Resp B/P (MAP) Pulse Ox O2 Delivery O2 Flow Rate FiO2 10/03/19 12:00 37.0 56 20 127/70 (89) 95 Room Air 10/03/19 08:00 36.8 70 22 161/79 (106) 95 Room Air 10/03/19 08:00 96 Room Air 10/03/19 04:03 36.1 57 16 150/82 (104) 96 Room Air 10/03/19 01:15 67 18 136/84 (101) 93 Room Air 10/02/19 23:55 36.5 58 18 143/90 (107) 96 Room Air 10/02/19 20:30 96 Room Air 10/02/19 20:18 36.8 63 16 126/77 (93) 94 Room Air 10/02/19 16:14 36.7 60 16 127/78 (94) 93 Room Air I & O 10/03/19 07:00 Intake Total 1100 ml Balance 1100 ml Capillary Refill : Less Than 3 SecondsLess Than 3 Seconds General Appearance: No Apparent Distress, WD/WN Neck: Full Range of Motion, Normal Inspection, Supple Respiratory: Normal Breath Sounds, No Accessory Muscle Use, No Respiratory Distress Cardiovascular: Regular Rate, Rhythm, No Murmur Gastrointestinal: normal bowel sounds, soft, tenderness (epigastric area) Extremity: Normal Capillary Refill, Normal Range of Motion Neurologic/Psychiatric: Alert, Oriented x3 Skin: Normal Color, Warm/Dry Results Lab Laboratory Tests 10/02/19 17:24: Glucometer 126H 10/03/19 00:01: Glucometer 125H 10/03/19 05:11: Glucometer 114H 10/03/19 05:30: White Blood Count 6.4, Red Blood Count 5.09, Hemoglobin 15.2, Hematocrit 46, Mean Corpuscular Volume 90, Mean Corpuscular Hemoglobin 30, Mean Corpuscular Hemoglobin Concent 33, Red Cell Distribution Width 14.9H, Platelet Count 212, Mean Platelet Volume 11.3H, Neutrophils (%) (Auto) 76H, Lymphocytes (%) (Auto) 18, Monocytes (%) (Auto) 5, Eosinophils (%) (Auto) 1, Basophils (%) (Auto) 1, Neutrophils # (Auto) 4.9, Lymphocytes # (Auto) 1.1, Monocytes # (Auto) 0.3, Eo sinophils # (Auto) 0.0, Basophils # (Auto) 0.0, Sodium Level 140, Potassium Level 3.5L, Chloride Level 105, Carbon Dioxide Level 22, Anion Gap 13, Blood Urea Nitrogen 7, Creatinine 0.88, Estimat Glomerular Filtration Rate > 60, BUN/Creatinine Ratio 8, Glucose Level 141H, Calcium Level 9.3, Corrected Calcium 9.3, Total Bilirubin 0.9, Aspartate Amino Transf (AST/SGOT) 219H, Alanine Aminotransferase (ALT/SGPT) 286H, Alkaline Phosphatase 162H, Total Protein 7.4, Albumin 4.0, Amylase Level 40, Lipase 22 10/03/19 12:46: Glucometer 100 Assessment/Plan Assessment/Plan Assess & Plan/Chief Complaint A 64-year-old female with mild acute pancreatitis, which may be secondary to retained stone versus biliary sludge. VSS Total bilirubin and Amylase and lipase WNL Will continue with IV fluids, and Bowel rest, Pain and nausea meds. Continue to monitor at this time If this persists or worsens and her total bilirubin increases, then she will need an ERCP. Clinical Quality Measures DVT/VTE Risk/Contraindication: Risk Factor Score Per Nursin RFS Level Per Nursing on Admit: 4+=Very High Other: CONSULT SCHEDULED WITH CARRI FLANAGAN APRN Oct 03, 2019 13:06
[2019-10-03 16:00] VITALS: BP 149/79
--- NOTE | 2019-10-03 19:20 | NUR ---
NO NEEDS PER PT, Addendum: 10/03/19 at 1921 by ALLEGRA HART RT Amended: Links added.
[2019-10-03 20:00] VITALS: BP 141/67
[2019-10-04] VITALS (8 sets, daily range): BP systolic 122–160; BP diastolic 69–78
[2019-10-04] MEDS: 1/2 NS W/KCL 20 MEQ/L 1,000 ML IV SCH ×4 (00:31→20:23)
[2019-10-04 05:24] LABS: BASOPHILS % (AUTO) 0 % (0-10); EOSINOPHILS # (AUTO) 0.1 10^3/uL (0.0-0.3); EOSINOPHILS % (AUTO) 1 % (0-10); HEMATOCRIT 43 % (35-52); HEMOGLOBIN 14.4 G/DL (11.5-16.0); LYMPHOCYTES # (AUTO) 0.9 X 10^3 (1.0-4.0); LYMPHOCYTES % (AUTO) 19 % (12-44); MEAN CORPUSCULAR HEMOGLOBIN 30 PG (25-34); MEAN CORPUSCULAR HGB CONC 33 G/DL (32-36); MEAN CORPUSCULAR VOLUME 90 FL (80-99); MEAN PLATELET VOLUME 11.2 FL (7.4-10.4); MONOCYTES # (AUTO) 0.4 X 10^3 (0.0-1.0); MONOCYTES % (AUTO) 8 % (0-12); NEUTROPHILS # (AUTO) 3.2 X 10^3 (1.8-7.8); NEUTROPHILS % (AUTO) 71 % (42-75); PLATELET COUNT 176 10^3/uL (130-400); RED CELL DISTRIBUTION WIDTH 14.9 % (10.0-14.5); WHITE BLOOD COUNT 4.5 10^3/uL (4.3-11.0)
[2019-10-04] MEDS: ENOXAPARIN 40 MG/0.4 ML (LOVENOX) SYR SC SCH ×2 (05:38→16:16)
[2019-10-04 05:44] LABS: ALANINE AMINOTRANSFERASE 183 U/L (0-55); ALBUMIN 3.7 GM/DL (3.2-4.5); ALKALINE PHOSPHATASE 129 U/L (40-136); BILIRUBIN,TOTAL 0.8 MG/DL (0.1-1.0); BUN/CREATININE RATIO 5; CARBON DIOXIDE 24 MMOL/L (21-32); CHLORIDE 105 MMOL/L (98-107); CREATININE SERUM 0.76 MG/DL (0.60-1.30); GFR ESTIMATED > 60; GLUCOSE 116 MG/DL (70-105); POTASSIUM 3.6 MMOL/L (3.6-5.0); SODIUM 140 MMOL/L (135-145); TOTAL PROTEIN 6.7 GM/DL (6.4-8.2)
[2019-10-04] MEDS: HYDROmorphone 2 MG/ML VIAL (DILAUDID) IVP PRN (05:53)
[2019-10-04] MEDS: inSUlin ASPART (NovoLOG) 1 UNIT/0.01 ML (CHARGE PER UNIT) SC SCH ×4 (05:56→18:22)
[2019-10-04] MEDS: SENNA W/DOCUSATE (SENOKOT S) TABLET PO SCH ×2 (08:20→20:17)
[2019-10-04] MEDS: PANTOPRAZOLE 40 MG (PROTONIX) VIAL IV SCH (08:20)
[2019-10-04] MEDS: HYDROcodone/APAP 5 MG/325 MG (LORTAB) TAB PO PRN ×2 (08:21→20:18)
--- NOTE | 2019-10-04 10:07 | Progress Note - Hospitalist ---
Subjective HPI/CC On Admission Date Seen by Provider: Oct 04, 2019 Time Seen by Provider: 10:15 CC: Acute and recurrent pancreatitis HPI: This is a 64yoWF clinic patient of [facility] who is known to me from prior hospital stay 08/02/19 for acute pancreatitis who presents to the ER with N/V and abdominal pain that worsened to the point she had to come to ER. Symptoms never really left her since DC from inpatient 2 months ago but flared up 10 days ago a lot worse so she changed to CLD on her own and it helped a bit and she started researching this condition on [facility] and she is aware of the condition of chronic pancreatitis. Dr Morgan has been consulted. I have started Dilaudid pain meds and Zofran and those meds seem to be helping. Subjective/Events-last exam Patient doing a bit better but nausea continues Scop patch placed and seems to be helping a bit Dr Morgan and I visited and once she is able to DC she will need to se him and will set up with GI specialist for sphincter of oddi evaluation as the source of this issue since total bilirubin has been labile No pain currently Lovenox on board due to poor motivation to ambulate much this is acute on chronic DOMINGUEZ persists no neuro deficits noted Review of Systems General: Fatigue HEENT: Head Aches Gastrointestinal: Nausea, Abdominal Pain Objective Exam Vital Signs Vital Signs Date Time Temp Pulse Resp B/P (MAP) Pulse Ox O2 Delivery O2 Flow Rate FiO2 10/04/19 11:51 36.5 54 18 131/76 (94) 94 Room Air Capillary Refill : Less Than 3 SecondsLess Than 3 Seconds General Appearance: No Apparent Distress, WD/WN, Chronically ill, Obese Respiratory: Chest Non Tender, Lungs Clear, Normal Breath Sounds, No Accessory Muscle Use, No Respiratory Distress Cardiovascular: Regular Rate, Rhythm, No Edema, No Gallop, No JVD, No Murmur, Normal Peripheral Pulses Neurologic/Psychiatric: Alert, Oriented x3, No Motor/Sensory Deficits, Normal Mood/Affect Results/Procedures Lab Laboratory Tests 10/04/19 04:56 Patient resulted labs reviewed. Assessment/Plan Assessment and Plan Assess & Plan/Chief Complaint Assessment: Acute and recurrent pancreatitis Refractory N/V Elevated LFT's GERD Obesity HTN Plan: IV Dilaudid IV Toradol IVF NPO Lovenox PPI Anti-emetics Diagnosis/Problems Diagnosis/Problems (1) Pancreatitis Status: Acute (2) Elevated liver enzymes Status: Acute (3) NIDDM Clinical Quality Measures DVT/VTE Risk/Contraindication: Risk Factor Score Per Nursin RFS Level Per Nursing on Admit: 4+=Very High Other: CONSULT SCHEDULED WITH EMMANUEL SWAN DO Oct 04, 2019 10:07
[2019-10-04] MEDS: KETOROLAC 30 MG/ML VIAL IVP PRN ×2 (11:44→17:44)
--- NOTE | 2019-10-04 12:17 | Progress Note ---
Subjective Date Seen by a Provider: Oct 04, 2019 Time Seen by a Provider: 10:00 Subjective/Events-last exam doing better today. less nausea. has headache today likely due to iv pain meds. pain improving. no fever/chills. Objective Exam Vital Signs Date Time Temp Pulse Resp B/P (MAP) Pulse Ox O2 Delivery O2 Flow Rate FiO2 10/04/19 11:51 36.5 54 18 131/76 (94) 94 Room Air 10/04/19 08:10 Room Air 10/04/19 08:00 37.0 60 18 139/76 (97) 95 Room Air 10/04/19 07:33 90 Room Air 10/04/19 05:57 36.4 57 18 160/71 (100) 94 Room Air 10/04/19 04:00 36.4 57 18 160/71 (100) 94 Room Air 10/04/19 00:00 36.8 61 18 144/69 (94) 96 Room Air 10/03/19 20:15 94 Room Air 10/03/19 20:00 36.9 63 18 141/67 (91) 96 Room Air 10/03/19 16:00 37.1 62 16 149/79 (102) 99 Room Air I & O 10/04/19 07:00 Intake Total 340 ml Balance 340 ml Capillary Refill : Less Than 3 SecondsLess Than 3 Seconds General Appearance: No Apparent Distress HEENT: PERRL/EOMI Neck: Full Range of Motion Respiratory: Chest Non Tender, Lungs Clear, Normal Breath Sounds Cardiovascular: Regular Rate, Rhythm Gastrointestinal: normal bowel sounds, soft, tenderness Extremity: Normal Capillary Refill Neurologic/Psychiatric: Alert, Oriented x3 Skin: Normal Color Lymphatic: No Adenopathy Results Lab Laboratory Tests 10/03/19 12:46: Glucometer 100 10/03/19 17:52: Glucometer 104 10/04/19 00:20: Glucometer 105 10/04/19 04:56: White Blood Count 4.5, Red Blood Count 4.78, Hemoglobin 14.4, Hematocrit 43, Mean Corpuscular Volume 90, Mean Corpuscular Hemoglobin 30, Mean Corpuscular Hemoglobin Concent 33, Red Cell Distribution Width 14.9H, Platelet Count 176, Mean Platelet Volume 11.2H, Neutrophils (%) (Auto) 71, Lymphocytes (%) (Auto) 19, Monocytes (%) (Auto) 8, Eosinophils (%) (Auto) 1, Basophils (%) (Auto) 0, Neutrophils # (Auto) 3.2, Lymphocytes # (Auto) 0.9L, Monocytes # (Auto) 0.4, Eosinophils # (Auto) 0.1, Basophils # (Auto) 0.0, Sodium Level 140, Potassium Level 3.6, Chloride Level 105, Carbon Dioxide Level 24, Anion Gap 11, Blood Urea Nitrogen 4L, Creatinine 0.76, Estimat Glomerular Filtration Rate > 60, BUN/Creatinine Ratio 5, Glucose Level 116H, Calcium Level 9.0, Corrected Calcium 9.2, Total Bilirubin 0.8, Aspartate Amino Transf (AST/SGOT) 97H, Alanine Aminotransferase (ALT/SGPT) 183H, Alkaline Phosphatase 129, Total Protein 6.7, Albumin 3.7 10/04/19 05:41: Glucometer 113H 10/04/19 11:47: Glucometer 105 Assessment/Plan Assessment/Plan Assess & Plan/Chief Complaint mild acute pancreatitis likely due to sphincter of oddi spasms. advance to low fat/bland diet. toradol for headache. will need OP referral GI for ERCP, manometric studies and possible sphincterotomy. Clinical Quality Measures DVT/VTE Risk/Contraindication: Risk Factor Score Per Nursin RFS Level Per Nursing on Admit: 4+=Very High Other: CONSULT SCHEDULED WITH NICHOL MCFARLANE MD Oct 04, 2019 12:17
[2019-10-05] VITALS: BP 128/73
[2019-10-05] MEDS: inSUlin ASPART (NovoLOG) 1 UNIT/0.01 ML (CHARGE PER UNIT) SC SCH ×3 (00:50→11:23)
[2019-10-05] MEDS: 1/2 NS W/KCL 20 MEQ/L 1,000 ML IV SCH ×3 (03:08→10:34)
[2019-10-05 03:49] VITALS: BP 131/66
[2019-10-05] MEDS: ENOXAPARIN 40 MG/0.4 ML (LOVENOX) SYR SC SCH (05:44)
[2019-10-05 07:31] VITALS: BP 138/77
[2019-10-05] MEDS: PANTOPRAZOLE 40 MG (PROTONIX) VIAL IV SCH (08:06)
[2019-10-05] MEDS: SENNA W/DOCUSATE (SENOKOT S) TABLET PO SCH (08:06)
[2019-10-05] MEDS ORDERED: ENOXAPARIN 40 MG/0.4 ML (LOVENOX) SYR SC SCH (09:30)
[2019-10-05] MEDS: HYDROcodone/APAP 5 MG/325 MG (LORTAB) TAB PO PRN (10:47)
--- NOTE | 2019-10-05 11:17 | Progress Note ---
Subjective Date Seen by a Provider: Oct 05, 2019 Time Seen by a Provider: 11:00 Subjective/Events-last exam slowly improving. able to tolerate liquids and some bland solids. pain still there but improving. labs normalized. Objective Exam Vital Signs Date Time Temp Pulse Resp B/P (MAP) Pulse Ox O2 Delivery O2 Flow Rate FiO2 10/05/19 08:00 Room Air 10/05/19 07:31 36.5 53 20 138/77 (97) 94 Room Air 10/05/19 03:49 36.4 50 19 131/66 (87) 94 Room Air 10/05/19 00:00 37.0 60 20 128/73 (91) 95 Room Air 10/04/19 20:00 Room Air 10/04/19 19:12 37.0 63 18 124/78 (93) 94 Room Air 10/04/19 18:52 37.0 63 18 124/78 (93) 94 Room Air 10/04/19 15:33 36.4 60 20 122/75 (91) 95 Room Air 10/04/19 11:51 36.5 54 18 131/76 (94) 94 Room Air I & O 10/05/19 07:00 Intake Total 5290 ml Balance 5290 ml Capillary Refill : Less Than 3 SecondsLess Than 3 Seconds General Appearance: No Apparent Distress HEENT: PERRL/EOMI Neck: Full Range of Motion Respiratory: Chest Non Tender, Lungs Clear, Normal Breath Sounds Cardiovascular: Regular Rate, Rhythm Gastrointestinal: soft, tenderness Extremity: Normal Capillary Refill Neurologic/Psychiatric: Alert, Oriented x3 Skin: Normal Color Lymphatic: No Adenopathy Results Lab Laboratory Tests 10/04/19 11:47: Glucometer 105 10/04/19 18:22: Glucometer 119H 10/05/19 00:40: Glucometer 109 10/05/19 05:40: Glucometer 96 Assessment/Plan Assessment/Plan Assess & Plan/Chief Complaint mild acute pancreatitis likely due to sphincter of oddi spasms. advance to low fat/bland diet. toradol for headache. will need OP referral GI for ERCP, manometric studies and possible sphincterotomy. Clinical Quality Measures DVT/VTE Risk/Contraindication: Risk Factor Score Per Nursin RFS Level Per Nursing on Admit: 4+=Very High Other: CONSULT SCHEDULED WITH DR CRISTOBAL TODAY NICHOL CRISTOBAL MD Oct 05, 2019 11:17
[2019-10-05 11:20] VITALS: BP 122/72
[2019-10-05] MEDS ORDERED: PROM25TA14 PO (13:27)
[2019-10-05] MEDS ORDERED: HYDR-4342 PO (13:27)
--- NOTE | 2019-10-05 13:41 | NUR ---
DR CRISTOBAL AND MARLA D/C PT. ALL OF PTS ITEMS TAKEN WITH HER. PT GIVEN D/C EDUCATION AND SIGNED D/C PAPER. PCT STAFF PUSHED HER IN W/C TO ED TO MEET WITH .
== END 2019-10-05 13:47 | disposition home or self-care (01) | DRG 439 ==
LOC: EDUNIT# 03:03 → ER 03:06 → 4TH 06:00
PROVIDERS: ADMIT Internal Medicine; ATTEND Internal Medicine
DX: K85.90 Acute pancreatitis without necrosis or infection, unspecified (principal); K86.1 Other chronic pancreatitis; K83.4 Spasm of sphincter of Oddi; R74.8 Abnormal levels of other serum enzymes; E66.9 Obesity, unspecified; Z68.41 Body mass index [BMI] 40.0-44.9, adult; E11.9 Type 2 diabetes mellitus without complications; I10 Essential (primary) hypertension; K57.90 Diverticulosis of intestine, part unspecified, without perforation or abscess without bleeding; K21.9 Gastro-esophageal reflux disease without esophagitis; K44.9 Diaphragmatic hernia without obstruction or gangrene; J45.909 Unspecified asthma, uncomplicated; K58.1 Irritable bowel syndrome with constipation; K58.0 Irritable bowel syndrome with diarrhea; K64.9 Unspecified hemorrhoids; M19.91 Primary osteoarthritis, unspecified site; F41.9 Anxiety disorder, unspecified; Z87.442 Personal history of urinary calculi; Z87.440 Personal history of urinary (tract) infections; Z96.653 Presence of artificial knee joint, bilateral; Z90.49 Acquired absence of other specified parts of digestive tract; Z90.710 Acquired absence of both cervix and uterus; Z90.722 Acquired absence of ovaries, bilateral; Z90.79 Acquired absence of other genital organ(s); Z90.89 Acquired absence of other organs
CPT/HCPCS: 36415; 74022; 74176; 80053; 80320; 81000; 82150; 82962; 83690; 83735; 85025; 85610; 85730; 93005; 93041; 94760

== ENCOUNTER 2021-08-10 15:17 | Emergency (ER) | payer MEDICARE, OTHER ==
[~2021-08-10] VITALS: Ht 162 cm; Wt 117.0 kg
[~2021-08-10 15:17] MED LIST changes: -CALC600T12 PO; +CALC600T91 PO; -CIPR500T4 PO; +CIPR500T5 PO; +DIPH25CA79 PO; +ESCI-2 PO; -ESCI10TA55 PO; +ESCI20TA39 PO; -ESCI20TA45 PO; +HYDR-3817 PO; -LISI10TA2 PO; +LISI10TA25 PO; -LISI1TAB25 PO; +LISI1TAB46 PO; -MAGN250T2 PO; +MAGN250T31 PO; +MONT-40 PO; -MONT10TA26 PO; +MULT-567 PO; -MULT1TAB69 PO
[2021-08-10 15:20] VITALS: BP 164/80
[2021-08-10] MEDS ORDERED: LACTATED RINGERS 1,000 ML IV STA (15:58)
--- NOTE | 2021-08-10 15:58 | ED Abdominal Pain ---
General Chief Complaint: Abdominal/GI Problems Stated Complaint: VOMITING, STOMACH PAIN, LOWER BACK PAIN Nursing Triage Note: ARRIVED VIA AMB TO ROOM 06 WITH COMPLAINTS OF SEVERE BILAT LOWER ABD PAIN WITH N/V STARTING AT 1300. THINKS IT IS COULD BE HER DIVERTICULITIS OR HER IBS. Source of Information: Patient Exam Limitations: No Limitations (SARAH ALVARADO MED STUDENT) History of Present Illness Date Seen by Provider: Aug 10, 2021 Time Seen by Provider: 15:42 Initial Comments Mrs Multani is a 66yo female with PMH of Diverticulitis and IBS who presents to the ED today due to bilateral lower abdominal pain. States that she has been feeling like she was going to have an episode like this over the last week, she has not had pain but she just felt a little off like when she has had this before. Around 1300 today she bagan to have cramping and sharp pains in her abdomen on the lower R and L side. She has also had a lot of nausea and vomited threee times. Rates the pain an 8/10 and describes as sharp or crampy. This feels like diverticulitis she has had before. She also complains of chills, polyuria, a pressure sensation on her blasser, and constipation and mucus-like stools but no blood. Denies Fever or other symptoms. She has tried famotadine and bentyl but it hasnt helped. LBM today when she came to the ER. Her last colonoscopy was 1yr ago with Dr. Hoang who removed 7 polyps. She has a history of appendectomy, cholecystectomy, and ovaries and uterus. (SARAH ALVARADO MED STUDENT) Timing/Duration: 12 Hours Severity/Quality: Moderate Location: LUQ, LLQ Radiation: No Radiation Activities at Onset: None Modifying Factors: Worsens With Movement, Worsens With Palpation; Improves With Resting; Worsens With Urinating Associated Symptoms: Nausea/Vomiting (SKY PURCELL MD) Allergies and Home Medications Allergies Coded Allergies: Iodinated Contrast Media (Verified Allergy, Severe, 07/20/19) Sulfa (Sulfonamide Antibiotics) (Unverified Allergy, Mild, 12/20/08) indomethacin (Unverified Allergy, Mild, 12/20/08) iodine (Unverified Allergy, Mild, 12/20/08) lansoprazole (Unverified Allergy, Mild, Pt has received Pantoprazole in the past w/o issue, 10/02/19) latex (Unverified Allergy, Mild, 12/20/08) meperidine (Unverified Allergy, Mild, 12/20/08) paroxetine (Unverified Allergy, Mild, 12/20/08) ciprofloxacin (Verified Allergy, Unknown, 07/20/19) Uncoded Allergies: ANIMAL DANDER (Allergy, Mild, 12/20/08) TAPE (Allergy, Mild, 12/20/08) Patient Home Medication List Home Medication List Reviewed: Yes (SKY PURCELL MD) Albuterol Sulfate (Proair Hfa) 8.5 Gm Hfa.aer.ad, 2 PUFF IH Q4H PRN for S HORTNESS OF BREATH, (Reported) Entered as Reported by: MONICA CASTLE on 04/23/15 0908 Diphenhydramine HCl (Benadryl) 25 Mg Capsule, 25-50 MG PO Q4 -6H PRN for ALLERGY SYMPTOMS, (Reported) Entered as Reported by: KEAGAN NIELSEN on 10/02/19 0926 Hydrocodone/Acetaminophen (Hydrocodone-Acetamin 7.5-325) 1 Each Tablet, 1 EACH PO Q4H PRN for PAIN-MODERATE (5-7) Prescribed by: LAUREN DHILLON on 10/05/19 1327 Multivitamin (Multivitamins) 1 Each Tablet, 1 EACH PO DAILY, (Reported) Entered as Reported by: KEAGAN NIELSEN on 07/23/19 0853 Promethazine HCl (Promethazine Tablet) 25 Mg Tablet, 25 MG PO Q8H PRN for NAUSEA/VOMITING-2ND LINE Prescribed by: LAUREN DHILLON on 10/05/19 1327 Review of Systems Review of Systems Constitutional: chills; No fever EENTM: No Blurred Vision, No Double Vision Respiratory: Denies Cough, Denies Shortness of Air Cardiovascular: Denies Chest Pain, Denies Edema, Denies Palpitations Gastrointestinal: Abdominal Pain (Bilateral lower quadrants), Constipated, Nausea, Vomiting Genitourinary: Frequency; Denies Pain; Other (Feeling of pressure on bladder) Musculoskeletal: No joint pain, No joint swelling Skin: No pruritus, No rash Psychiatric/Neurological: Denies Headache, Denies Numbness (SARAH ALVARADO MED STUDENT) All Other Systems Reviewed Negative Unless Noted: Yes (SKY PURCELL MD) Past Soixruz-Bbmmqn-Tlcdhx Hx Patient Social History Tobacco Use?: No Substance use?: No Alcohol Use?: No (SARAH ALVARADO STUDENT) Tobacco Use?: No Substance use?: No Alcohol Use?: No (SKY PURCELL MD) Immunizations Up To Date Tetanus Booster (TDap): Unknown PED Vaccines UTD: Yes COVID19 Vaccine 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 (SARAH ALVARADO STUDENT) Seasonal Allergies Seasonal Allergies: No (SARAH ALVARADO STUDENT) Past Medical History Surgeries: Yes (BEN; HYST/BSO/APPY;EGD/COLONOSCOPIES;URETERAL STENTS; BILAT TKR;BREAST BX) Appendectomy, Breast, Gallbladder, Hysterectomy, Joint Replacement, Oophorectomy, Orthopedic, Renal Respiratory: Yes Asthma Currently Using CPAP: No Currently Using BIPAP: No Cardiac: Yes Hypertension Neurological: No Reproductive Disorders: No Female Reproductive Disorders: 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, Menopausal Sexually Transmitted Disease: No HIV/AIDS: No Genitourinary: Yes (URETERAL STENTS) Bladder Infection, Kidney Stones Gastrointestinal: Yes (EGD/COLONOSCOPIES;) Gastroesophageal Reflux, Chronic Constipation, Diverticulosis, Hemorrhoids, Pancreatitis, Chronic Diarrhea, Hiatal Hernia, Gall Bladder Disease, Irritable Bowel Musculoskeletal: Yes (BROKEN LEG CHILD) Arthritis, Fractures Endocrine: Yes (MORBID OBESITY) Diabetes, Non-Insulin dep HEENT: No Loss of Vision: Denies Hearing Impairment: Denies Cancer: No Psychosocial: Yes Anxiety Integumentary: No Blood Disorders: No Adverse Reaction/Blood Tranf: No (SARAH ALVARADO MED STUDENT) Family Medical History Reviewed Nursing Family Hx (SKY PURCELL MD) Alcoholism 19 FATHER G8 SISTER G8 SISTER Arthritis 19 FATHER 19 MOTHER G8 SISTER G8 SISTER G8 SISTER G8 SISTER Cardiovascular disease 19 MOTHER Cataracts 19 FATHER 19 MOTHER Deafness or hearing loss 19 FATHER 19 MOTHER Dementia 19 MOTHER Drug abuse G8 BROTHER Fibrocystic disease of breast 19 MOTHER G8 SISTER G8 SISTER Headache disorder 19 FATHER 19 MOTHER G8 BROTHER G8 SISTER G8 SISTER G8 SISTER G8 SISTER Hypertension 19 FATHER Kidney disease 19 FATHER Psychosocial problem G8 BROTHER Respiratory disorder G8 SISTER G8 SISTER G8 SISTER G8 SISTER CAD Under 55 Years Old, Hypertension, Renal Disease (SARAH ALVARADO [employer] STUDENT) Physical Exam Vital Signs Vital Signs - First Documented 08/10/21 15:20 Temp 36.3 Pulse 73 Resp 16 B/P (MAP) 164/80 (108) Pulse Ox 97 O2 Delivery Room Air (SKY PURCELL MD) Vital Signs Capillary Refill : Less Than 3 Seconds (SARAH ALVARADO [employer] STUDENT) Height/Weight/BMI Height: 5'4.00" Weight: 300lbs. 0.0oz. 136.996132lu; 44.00 BMI Method:Stated General Appearance: WD/WN, mild distress, obese HEENT: PERRL/EOMI, pharynx normal Respiratory: chest non-tender, lungs clear, normal breath sounds Cardiovascular: regular rate, rhythm, no edema, no murmur Peripheral Pulses: 2+ Radial Pulses (R), 2+ Radial Pulses (L) Gastrointestinal: soft, abnormal bowel sounds (hypoactive), tenderness (Tender diffusely but significant tenderness in RLQ and LLQ, mild suprapubic pressure); No mass Rectal: deferred Extremities: no pedal edema, no calf tenderness, normal capillary refill Neurologic/Psychiatric: alert, normal mood/affect, oriented x 3 Skin: normal color, warm/dry (SARAH ALVARADO [employer] STUDENT) General Appearance: WD/WN, mild distress, obese HEENT: PERRL/EOMI, pharynx normal Neck: full range of motion, supple Respiratory: lungs clear, normal breath sounds Cardiovascular: regular rate, rhythm, no murmur Gastrointestinal: soft, tenderness (Tender diffusely but significant tenderness in RLQ and LLQ, mild suprapubic pressure), other (Pain to left lower quadrant and lesser extent left upper quadrant. Does have suprapubic pain.) Extremities: no pedal edema, no calf tenderness Back: normal inspection, no CVA tenderness, no vertebral tenderness Neurologic/Psychiatric: alert, oriented x 3 Skin: normal color, warm/dry (SKY PURCELL MD) Progress/Results/Core Measures Results/Orders Lab Results Laboratory Tests Test 08/10/21 15:29 08/10/21 16:10 Range/Units White Blood Count 10.6 4.3-11.0 10^3/uL Red Blood Count 5.55 H 3.80-5.11 10^6/uL Hemoglobin 16.6 H 11.5-16.0 g/dL Hematocrit 50 35-52 % Mean Corpuscular Volume 90 80-99 fL Mean Corpuscular Hemoglobin 30 25-34 pg Mean Corpuscular Hemoglobin Concent 33 32-36 g/dL Red Cell Distribution Width 13.0 10.0-14.5 % Platelet Count 206 130-400 10^3/uL Mean Platelet Volume 11.2 9.0-12.2 fL Immature Granulocyte % (Auto) 1 % Neutrophils (%) (Auto) 88 H 42-75 % Lymphocytes (%) (Auto) 6 L 12-44 % Monocytes (%) (Auto) 4 0-12 % Eosinophils (%) (Auto) 0 0-10 % Basophils (%) (Auto) 1 0-10 % Neutrophils # (Auto) 9.3 H 1.8-7.8 10^3/uL Lymphocytes # (Auto) 0.7 L 1.0-4.0 10^3/uL Monocytes # (Auto) 0.4 0.0-1.0 10^3/uL Eosinophils # (Auto) 0.0 0.0-0.3 10^3/uL Basophils # (Auto) 0.1 0.0-0.1 10^3/uL Immature Granulocyte # (Auto) 0.1 0.0-0.1 10^3/uL Neutrophils % (Manual) 85 % Lymphocytes % (Manual) 4 % Monocytes % (Manual) 9 % Eosinophils % (Manual) 1 % Basophils % (Manual) 1 % Blood Morphology Comment NORMAL Sodium Level 138 135-145 MMOL/L Potassium Level 3.7 3.6-5.0 MMOL/L Chloride Level 103 98-107 MMOL/L Carbon Dioxide Level 22 21-32 MMOL/L Anion Gap 13 5-14 MMOL/L Blood Urea Nitrogen 14 7-18 MG/DL Creatinine 0.84 0.60-1.30 MG/DL Estimat Glomerular Filtration Rate 76 BUN/Creatinine Ratio 17 Glucose Level 156 H 70-105 MG/DL Calcium Level 9.7 8.5-10.1 MG/DL Corrected Calcium 9.5 8.5-10.1 MG/DL Total Bilirubin 0.8 0.1-1.0 MG/DL Aspartate Amino Transf (AST/SGOT) 19 5-34 U/L Alanine Aminotransferase (ALT/SGPT) 15 0-55 U/L Alkaline Phosphatase 116 40-136 U/L C-Reactive Protein High Sensitivity 0.58 H 0.00-0.50 MG/DL Total Protein 7.8 6.4-8.2 GM/DL Albumin 4.2 3.2-4.5 GM/DL Lipase 12 8-78 U/L Urine Color ORANGE Urine Clarity CLEAR Urine pH 5.0 5-9 Urine Specific Wister >=1.030 1.016-1.022 Urine Protein TRACE H NEGATIVE Urine Glucose (UA) NEGATIVE NEGATIVE Urine Ketones TRACE H NEGATIVE Urine Nitrite POSITIVE H NEGATIVE Urine Bilirubin 2+ H NEGATIVE Urine Urobilinogen 1.0 < = 1.0 MG/DL Urine Leukocyte Esterase NEGATIVE NEGATIVE Urine RBC (Auto) NEGATIVE NEGATIVE Urine RBC NONE /HPF Urine WBC NONE /HPF Urine Squamous Epithelial Cells 0-2 /HPF Urine Crystals NONE /LPF Urine Bacteria NEGATIVE /HPF Urine Casts NONE /LPF Urine Mucus NEGATIVE /LPF Urine Culture Indicated NO (SKY PURCELL MD) My Orders Orders - SKY PURCELL MD Cbc With Automated Diff (08/10/21 15:58) Comprehensive Metabolic Panel (08/10/21 15:58) Hs C Reactive Protein (08/10/21 15:58) Ua Culture If Indicated (08/10/21 15:58) Lactated Ringers (Lr 1000 Ml Iv Solution (08/10/21 15:58) Ed Iv/Invasive Line Start (08/10/21 15:58) Lipase (08/10/21 16:03) Ct Abdomen/Pelvis Wo (08/10/21 16:07) Fentanyl Inj (Sublimaze Injection) (08/10/21 16:07) Ondansetron Injection (Zofran Injectio (08/10/21 16:15) Manual Differential (08/10/21 15:29) Lorazepam Injection (Ativan Injection) (08/10/21 16:30) Urine Culture (08/10/21 16:57) Ceftriaxone 1 Gm Pre-Mix (Rocephin 1 Gm (08/10/21 18:15) (SKY PURCELL MD) Medications Given in ED Current Medications Medications Dose Ordered Sig/Candi Route Start Time Stop Time Status Last Admin Dose Admin Lorazepam 0.5 mg ONCE ONCE IVP 08/10/21 16:30 08/10/21 16:31 DC 08/10/21 16:31 0.5 MG Ondansetron HCl 4 mg ONCE ONCE IVP 08/10/21 16:15 08/10/21 16:16 DC 08/10/21 16:23 4 MG (SKY PURCELL MD) Vital Signs/I&O 08/10/21 15:20 Temp 36.3 Pulse 73 Resp 16 B/P (MAP) 164/80 (108) Pulse Ox 97 O2 Delivery Room Air (SKY PURCELL MD) Blood Pressure Mean: 108 Progress Progress Note : Time: 16:20 Progress Note Pt was seen and examined. Discussed with patient that she should get a CT, she is allergic to contrast and is claustrophobic. Will no noncontrast CT and give ativan before scan. Will give fentanyl for pain. Will check basic labs, Lipase, Urine, CRP. Giving zofran for nausea. IV fluids. Likely has diverticulitis but could also have perforation, UTI. Does not have galbladder, appendix, ovaries, uterus. 1705: Results of UA show nitrites but no bacterial cells. Will culture. CBC came back with no elevated WBC but CRP elevated at 0.58. She does have an elevated HGB at 16.6. She has received fentanyl, states her pain is a lot better, about 30% better. Does not think she needs any more. 1716: CT completed. Shows minimal stranding on sigmoid diverticula, possibly mild diverticulitis. (SARAH ALVARADO MED STUDENT) Progress Note : Progress Note I have seen and evaluated the patient and agree with above except as indicated. I have directed the plan of care. Patient is here with left lower quadrant abdominal pain as well as some suprapubic pain. She does report urinary pressure and frequency. Denies blood in her urine or stool. Does have history of diverticulitis and states this feels like that. Does have some nausea. Reports pain is getting worse and she is concerned about her diverticulitis or urinary tract infection. Evaluation as above. Plan, IV, labs, LR 1 L bolus, Zofran 4 mg IV and fentanyl 50 mcg IV ordered. We will get CT abdomen pelvis without contrast as she is allergic to contrast. Monitor patient. 1815: CT report reviewed. Does have some mild diverticulitis. Question urinary tract infection with culture pending. We will give Rocephin 1 g IV. Patient feels comfortable with discharge home. We will continue outpatient medication with cephalexin due to allergy as well as metronidazole and add Zofran and as needed hydrocodone (minimal number). Patient and family were in agreement. Discharged home with return precautions. Patient and family verbalized understanding instructions and agreement with plan. (SKY PURCELL MD) Diagnostic Imaging Diagonstic Imaging: CT Plain Films/CT/US/NM/MRI: abdomen, pelvis Comments [facility] [place], [place] NAME: JOVANI MULTANI [facility] REC#: [id number] PT STATUS: REG ER : 1955 PHYSICIAN: SKY PURCELL MD ADMIT DATE: 08/10/21/ER Draft Date of Exam:08/10/21 CT ABDOMEN/PELVIS WO CT ABDOMEN/PELVIS WO TECHNIQUE: Unenhanced CT imaging of the abdomen and pelvis was performed. 2-D reformats are created and submitted for interpretation. Automatic exposure controls were utilized to optimize patient dose. INDICATION: Left-sided pain COMPARISON: 10/02/2019 FINDINGS: Evaluation of the abdominal viscera is mildly limited without contrast. Lower chest: The lung bases are clear. No pericardial or pleural effusion. Peritoneum: No free intraperitoneal air or fluid. Liver and biliary system: Unenhanced liver is normal. Cholecystectomy. No biliary duct dilatation. Spleen and Pancreas: Spleen is normal. Unenhanced pancreas is grossly normal. Adrenals: Normal. tract: No hydronephrosis or ureteral dilatation. Urinary bladder is decompressed. There are no obstructing renal or ureteral stones. A nonobstructing 5 mm stone in the lower pole of the right kidney is stable since prior examination. Uterus surgically absent. GI tract: Stomach is decompressed. No bowel obstruction. Sigmoid colon diverticulosis with mild wall thickening. There is minimal fat stranding around the sigmoid colon diverticula which may represent a mild diverticulitis. No abscess. Appendix is not seen and likely surgically absent. Vasculature and Lymph nodes: Normal caliber aorta. No abdominal or pelvic lymphadenopathy. Musculoskeletal: No concerning osseous lesion. IMPRESSION: 1. No obstructive uropathy. Stable 5 mm nonobstructing stone in the lower pole of the right kidney. 2. Sigmoid colon diverticulosis with minimal stranding of pericolonic fat. This may be due to acute diverticulitis versus sequelae of more remote diverticulitis. Correlation with symptomatology is advised. 3. No abscess or perforation. Dictated on workstation # [id number] Dict: 08/10/21 1702 Trans: 08/10/21 1710 [id number] Interpreted by: GIUSEPPE ALVARES MD Electronically signed by: (SKY PURCELL MD) Departure Impression Primary Impression: Diverticulitis Additional Impression: Urinary tract infection Qualified Codes: N30.00 - Acute cystitis without hematuria Disposition: HOME, SELF-CARE Condition: Stable Departure-Patient Inst. Decision time for Depature: 18:26 (SKY PURCELL MD) Referrals: [facility] (PCP) Primary Care Physician TURNER GARVEY (Family) Primary Care Physician Patient Instructions: Urinary Tract Infection, Adult (DC), Diverticulitis (DC) Add. Discharge Instructions: All discharge instructions reviewed with patient and/or family. Voiced understanding. Take medications as directed. Follow-up with your doctor in a few days for rech giana. You may take Tylenol/acetaminophen 1000 mg every 6-8 hours if you're not taking the prescribed pain medicine. Do not take both at the same time as they both have acetaminophen in them. Drink plenty of fluids and try to stick to clear or light diet over the next several days and then advance as tolerated. Return for worse pain, fever, vomiting, weakness, breathing problems or other concerns as needed. Scripts Ondansetron (Ondansetron Odt) 4 Mg Tab.rapdis 4 MG PO Q6H PRN for NAUSEA/VOMITING, #12 TAB 0 Refills Prov: SKY PURCELL MD 08/10/21 Metronidazole (Metronidazole) 500 Mg Tablet 500 MG PO BID, #14 TAB 0 Refills Prov: SKY PURCELL MD 08/10/21 Hydrocodone Bit/Acetaminophen (HYDROcodone/APAP 5 MG/325 MG TAB) 1 Tab Tab 1 TAB PO Q6H PRN for PAIN-MODERATE (5-7), #6 TAB 0 Refills Prov: SKY PURCELL MD 08/10/21 Cephalexin (Cephalexin) 500 Mg Capsule 500 MG PO Q8H for 7 Days, #21 CAP 0 Refills Prov: SKY PURCELL MD 08/10/21 SARAH ALVARADO MED STUDENT Aug 10, 2021 15:58 SKY PURCELL MD Aug 10, 2021 17:21
[2021-08-10] MEDS ORDERED: fentaNYL INJ 100 MCG/2 ML AMP IVP STA (16:07)
[2021-08-10 16:08] LABS: BASOPHILS # (AUTO) 0.1 10^3/uL (0.0-0.1); BASOPHILS % (AUTO) 1 % (0-10); EOSINOPHILS % (AUTO) 0 % (0-10); HEMATOCRIT 50 % (35-52); HEMOGLOBIN 16.6 g/dL (11.5-16.0); LYMPHOCYTES # (AUTO) 0.7 10^3/uL (1.0-4.0); LYMPHOCYTES % (AUTO) 6 % (12-44); MEAN CORPUSCULAR HEMOGLOBIN 30 pg (25-34); MEAN CORPUSCULAR HGB CONC 33 g/dL (32-36); MEAN CORPUSCULAR VOLUME 90 fL (80-99); MEAN PLATELET VOLUME 11.2 fL (9.0-12.2); MONOCYTES # (AUTO) 0.4 10^3/uL (0.0-1.0); MONOCYTES % (AUTO) 4 % (0-12); NEUTROPHILS # (AUTO) 9.3 10^3/uL (1.8-7.8); NEUTROPHILS % (AUTO) 88 % (42-75); PLATELET COUNT 206 10^3/uL (130-400); WHITE BLOOD COUNT 10.6 10^3/uL (4.3-11.0)
[2021-08-10 16:14] LABS: ALBUMIN 4.2 GM/DL (3.2-4.5); POTASSIUM 3.7 MMOL/L (3.6-5.0)
[2021-08-10 16:15] LABS: CALCIUM 9.7 MG/DL (8.5-10.1)
[2021-08-10] MEDS ORDERED: ONDANSETRON 4 MG/2 ML (SDV) Z0FRAN IVP ONE ×2 (16:15→18:30)
[2021-08-10 16:16] LABS: CLARITY,URINE CLEAR; COLOR,URINE ORANGE; GLUCOSE, URINE (UA) NEGATIVE (NEGATIVE); KETONES,URINE TRACE (NEGATIVE); LEUKOCYTE ESTERASE ,URINE NEGATIVE (NEGATIVE); NITRITE,URINE POSITIVE (NEGATIVE); PROTEIN,URINE TRACE (NEGATIVE)
[2021-08-10 16:16] LABS: TOTAL PROTEIN 7.8 GM/DL (6.4-8.2)
[2021-08-10 16:18] LABS: BILIRUBIN,TOTAL 0.8 MG/DL (0.1-1.0)
[2021-08-10 16:20] LABS: CREATININE SERUM 0.84 MG/DL (0.60-1.30)
[2021-08-10 16:27] LABS: BACTERIA,URINE NEGATIVE /HPF; SQUAMOUS EPITHELIAL CELL,UR 0-2 /HPF
[2021-08-10 16:28] LABS: BILIRUBIN,URINE 2+ (NEGATIVE)
[2021-08-10] MEDS ORDERED: LORazepam INJ 2 MG/ML (ATIVAN) VIAL IVP ONE (16:30)
[2021-08-10 16:31] LABS: BASOPHILS % (MANUAL) 1 %; EOSINOPHILS % (MANUAL) 1 %; LYMPHOCYTES % (MANUAL) 4 %; MONOCYTES % (MANUAL) 9 %; NEUTROPHILS % (MANUAL) 85 %; RBC MORPH NORMAL
--- NOTE | 2021-08-10 17:10 | Diagnostic Imaging Report ---
CT ABDOMEN/PELVIS WO TECHNIQUE: Unenhanced CT imaging of the abdomen and pelvis was performed. 2-D reformats are created and submitted for interpretation. Automatic exposure controls were utilized to optimize patient dose. INDICATION: Left-sided pain COMPARISON: 10/02/2019 FINDINGS: Evaluation of the abdominal viscera is mildly limited without contrast. Lower chest: The lung bases are clear. No pericardial or pleural effusion. Peritoneum: No free intraperitoneal air or fluid. Liver and biliary system: Unenhanced liver is normal. Cholecystectomy. No biliary duct dilatation. Spleen and Pancreas: Spleen is normal. Unenhanced pancreas is grossly normal. Adrenals: Normal. tract: No hydronephrosis or ureteral dilatation. Urinary bladder is decompressed. There are no obstructing renal or ureteral stones. A nonobstructing 5 mm stone in the lower pole of the right kidney is stable since prior examination. Uterus surgically absent. GI tract: Stomach is decompressed. No bowel obstruction. Sigmoid colon diverticulosis with mild wall thickening. There is minimal fat stranding around the sigmoid colon diverticula which may represent a mild diverticulitis. No abscess. Appendix is not seen and likely surgically absent. Vasculature and Lymph nodes: Normal caliber aorta. No abdominal or pelvic lymphadenopathy. Musculoskeletal: No concerning osseous lesion. IMPRESSION: 1. No obstructive uropathy. Stable 5 mm nonobstructing stone in the lower pole of the right kidney. 2. Sigmoid colon diverticulosis with minimal stranding of pericolonic fat. This may be due to acute diverticulitis versus sequelae of more remote diverticulitis. Correlation with symptomatology is advised. 3. No abscess or perforation. Dictated by: Dictated on workstation # [id number]
[2021-08-10] MEDS ORDERED: cefTRIAXone 1 GM PRE-MIX 50 ML IV ONE (18:15)
[2021-08-10] MEDS ORDERED: CEPH500C PO (18:20)
[2021-08-10] MEDS ORDERED: METR-145 PO (18:20)
[2021-08-10] MEDS ORDERED: ACHD5005 PO (18:20)
[2021-08-10] MEDS ORDERED: ONDA4TAB11 PO (18:24)
== END 2021-08-10 19:15 | disposition home or self-care (01) ==
LOC: EDUNIT# 15:17 → ER 15:19
DX: K57.32 Diverticulitis of large intestine without perforation or abscess without bleeding (principal); N39.0 Urinary tract infection, site not specified; E66.9 Obesity, unspecified; Z91.040 Latex allergy status; Z90.49 Acquired absence of other specified parts of digestive tract; Z90.89 Acquired absence of other organs; Z68.41 Body mass index [BMI] 40.0-44.9, adult
CPT/HCPCS: 36415; 74176; 80053; 81000; 83690; 85007; 85025; 85027; 86141; 87088

== ENCOUNTER 2021-08-11 20:48 | Observation (INO) | payer MEDICARE, OTHER ==
[~2021-08-11] VITALS: Ht 162.5 cm; Wt 116.1 kg
[~2021-08-11 20:48] MED LIST changes: +CEPH500C PO; +METR-145 PO; +ONDA4TAB11 PO
--- NOTE | 2021-08-11 21:35 | ED Abdominal Pain ---
General Chief Complaint: Abdominal/GI Problems Stated Complaint: RECTAL BLEEDING, DIARRHEA Nursing Triage Note: PT AMB TO 7 WITH COMPLAINT OF ABD PAIN. STATES WAS SEEN LAST NIGHT IN ER AND DIAGNOSED WITH DIVERTICULITIS. STATES PAIN HAS WORSENED. Source of Information: Patient Exam Limitations: No Limitations (MARIA C CURIEL MED STUDENT) History of Present Illness Date Seen by Provider: Aug 11, 2021 Time Seen by Provider: 21:20 Initial Comments This is a 66 YO female presenting to the ED with worsening lower abdominal pain and bloody BM's. Pt was seen in the ED last night for the pain and workup showed UTI and diverticulitis. She was discharged home with Rx for Abx, Zofran, and hydrocodone/acetaminophen, which she says she has been taking as prescribed. Her nausea is controlled, but she reports worsening of abdominal cramping and a quarter sized blood clot that she passed with a bowel movement. She had not been having bloody BM's the night before. Has history of hemorrhoids, but does not feel like this is similar. Has had diverticulitis multiple times in the past and feels that the pain is worse than before. (MARIA C CURIEL MED STUDENT) Allergies and Home Medications Allergies Coded Allergies: Iodinated Contrast Media (Verified Allergy, Severe, 07/20/19) Sulfa (Sulfonamide Antibiotics) (Unverified Allergy, Mild, 12/20/08) indomethacin (Unverified Allergy, Mild, 12/20/08) iodine (Unverified Allergy, Mild, 12/20/08) lansoprazole (Unverified Allergy, Mild, Pt has received Pantoprazole in the past w/o issue, 10/02/19) latex (Unverified Allergy, Mild, 12/20/08) meperidine (Unverified Allergy, Mild, 12/20/08) paroxetine (Unverified Allergy, Mild, 12/20/08) ciprofloxacin (Verified Allergy, Unknown, 07/20/19) Uncoded Allergies: ANIMAL DANDER (Allergy, Mild, 12/20/08) TAPE (Allergy, Mild, 12/20/08) Patient Home Medication List Home Medication List Reviewed: Yes (WILNER LAUGHLIN MD) Albuterol Sulfate (Proair Hfa) 8.5 Gm Hfa.aer.ad, 2 PUFF IH Q4H PRN for SHORTNESS OF BREATH, (Reported) Entered as Reported by: MONICA CASTLE on 04/23/15 0908 Cephalexin (Cephalexin) 500 Mg Capsule, 500 MG PO Q8H Prescribed by: SKY PURCELL on 08/10/211819 Diphenhydramine HCl (Benadryl) 25 Mg Capsule, 25-50 MG PO Q4 -6H PRN for ALLERGY SYMPTOMS, (Reported) Entered as Reported by: KEAGAN NIELSEN on 10/02/19 0926 Hydrocodone Bit/Acetaminophen (HYDROcodone/APAP 5 MG/325 MG TAB) 1 Tab Tab, 1 TAB PO Q6H PRN for PAIN-MODERATE (5-7) Prescribed by: SKY PURCELL on 08/10/21 182 Hydrocodone/Acetaminophen (Hydrocodone-Acetamin 7.5-325) 1 Each Tablet, 1 EACH PO Q4H PRN for PAIN-MODERATE (5-7) Prescribed by: LAUREN DHILLON on 10/05/19 132 Metronidazole (Metronidazole) 500 Mg Tablet, 500 MG PO BID Prescribed by: SKY PURCELL on 08/10/211819 Multivitamin (Multivitamins) 1 Each Tablet, 1 EACH PO DAILY, (Reported) Entered as Reported by: KEAGAN NIELSEN on 07/23/19 0853 Ondansetron (Ondansetron Odt) 4 Mg Tab.rapdis, 4 MG PO Q6H PRN for NAUSEA/VOMITING Prescribed by: SKY PURCELL on 08/10/211823 Promethazine HCl (Promethazine Tablet) 25 Mg Tablet, 25 MG PO Q8H PRN for NAUSEA/VOMITING-2ND LINE Prescribed by: LAUREN DHILLON on 10/05/19 1327 Review of Systems Review of Systems Constitutional: No chills, No fever EENTM: No Blurred Vision, No Double Vision Respiratory: Denies Cough, Denies Shortness of Air Cardiovascular: Denies Chest Pain, Denies Lightheadedness Gastrointestinal: Abdominal Pain, Nausea Genitourinary: See HPI Musculoskeletal: No back pain, No joint pain Skin: No lesions, No rash Psychiatric/Neurological: Denies Headache, Denies Numbness Endocrine: No Symptoms Reported Hematologic/Lymphatic: No Symptoms Reported (MARIA C CURIEL MED STUDENT) All Other Systems Reviewed Negative Unless Noted: Yes (Negative excepted noted.) (MARIA C CURIEL STUDENT) Past Yrrvzwu-Sigtvn-Rxczds Hx Patient Social History Tobacco Use?: No Use of E-Cig and/or Vaping dev: No Substance use?: No Alcohol Use?: No Pt feels they are or have been: No (MARIA C CURIEL STUDENT) Immunizations Up To Date Tetanus Booster (TDap): Unknown PED Vaccines UTD: Yes First/Initial COVID19 Vaccinat: 05/02 Second COVID19 Vaccination Bernardo: 05/02 Third COVID19 Vaccination Date: 05/02 (MARIA C CURIEL STUDENT) Seasonal Allergies Seasonal Allergies: No (MARIA C CURIEL) Past Medical History Surgeries: Yes (BEN; HYST/BSO/APPY;EGD/COLONOSCOPIES;URETERAL STENTS; BILAT TKR;BREAST BX) Appendectomy, Breast, Gallbladder, Hysterectomy, Joint Replacement, Oophorectomy, Orthopedic, Renal Respiratory: Yes Asthma Currently Using CPAP: No Currently Using BIPAP: No Cardiac: Yes Hypertension Neurological: No Reproductive Disorders: No Female Reproductive Disorders: Menstrual Problems 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, 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 Sexually Transmitted Disease: No HIV/AIDS: No Genitourinary: Yes (URETERAL STENTS) Bladder Infection, Kidney Stones Gastrointestinal: Yes (EGD/COLONOSCOPIES;) Gastroesophageal Reflux, Chronic Constipation, Diverticulosis, Hemorrhoids, Pancreatitis, Chronic Diarrhea, Hiatal Hernia, Gall Bladder Disease, Irritable Bowel Musculoskeletal: Yes (BROKEN LEG CHILD) Arthritis, Fractures Endocrine: Yes (MORBID OBESITY) Diabetes, Non-Insulin dep HEENT: No Loss of Vision: Denies Hearing Impairment: Denies Cancer: No Psychosocial: Yes Anxiety Integumentary: No Blood Disorders: No Adverse Reaction/Blood Tranf: No (MARIA C CURIEL STUDENT) Family Medical History Alcoholism 19 FATHER G8 SISTER G8 SISTER Arthritis 19 FATHER 19 MOTHER G8 SISTER G8 SISTER G8 SISTER G8 SISTER Cardiovascular disease 19 MOTHER Cataracts 19 FATHER 19 MOTHER Deafness or hearing loss 19 FATHER 19 MOTHER Dementia 19 MOTHER Drug abuse G8 BROTHER Fibrocystic disease of breast 19 MOTHER G8 SISTER G8 SISTER Headache disorder 19 FATHER 19 MOTHER G8 BROTHER G8 SISTER G8 SISTER G8 SISTER G8 SISTER Hypertension 19 FATHER Kidney disease 19 FATHER Psychosocial problem G8 BROTHER Respiratory disorder G8 SISTER G8 SISTER G8 SISTER G8 SISTER CAD Under 55 Years Old, Hypertension, Renal Disease (MARIA C CURIEL MED STUDENT) Physical Exam Vital Signs Vital Signs - First Documented 08/11/21 08/11/21 21:00 22:50 Temp 36.7 Pulse 71 Resp 16 B/P (MAP) 168/87 (114) Pulse Ox 95 O2 Delivery Room Air (WILNER LAUGHLIN MD) Vital Signs Capillary Refill : Less Than 3 Seconds (MARIA C CURIEL MED STUDENT) Height/Weight/BMI Height: 5'4.00" Weight: 300lbs. 0.0oz. 136.107874qc; 44.00 BMI Method:Stated General Appearance: WD/WN, mild distress, other (moving around in bed, unable to get comfortable) HEENT: PERRL/EOMI; No scleral icterus (R), No scleral icterus (L) Neck: full range of motion, normal inspection Respiratory: lungs clear, normal breath sounds, no respiratory distress, no accessory muscle use Cardiovascular: regular rate, rhythm, no murmur Gastrointestinal: soft; No rebound; other (mild diffuse lower abdominal tenderness) Extremities: normal range of motion, normal inspection Neurologic/Psychiatric: alert, oriented x 3, other (appears uncomfortable) Skin: normal color, warm/dry (MARIA C CURIEL MED STUDENT) Progress/Results/Core Measures Results/Orders Lab Results Laboratory Tests Test 08/11/21 22:49 08/11/21 23:10 Range/Units White Blood Count 9.8 4.3-11.0 10^3/uL Red Blood Count 4.96 3.80-5.11 10^6/uL Hemoglobin 14.9 11.5-16.0 g/dL Hematocrit 44 35-52 % Mean Corpuscular Volume 89 80-99 fL Mean Corpuscular Hemoglobin 30 25-34 pg Mean Corpuscular Hemoglobin Concent 34 32-36 g/dL Red Cell Distribution Width 13.1 10.0-14.5 % Platelet Count 198 130-400 10^3/uL Mean Platelet Volume 10.7 9.0-12.2 fL Immature Granulocyte % (Auto) 0 % Neutrophils (%) (Auto) 85 H 42-75 % Lymphocytes (%) (Auto) 9 L 12-44 % Monocytes (%) (Auto) 5 0-12 % Eosinophils (%) (Auto) 0 0-10 % Basophils (%) (Auto) 0 0-10 % Neutrophils # (Auto) 8.3 H 1.8-7.8 10^3/uL Lymphocytes # (Auto) 0.9 L 1.0-4.0 10^3/uL Monocytes # (Auto) 0.5 0.0-1.0 10^3/uL Eosinophils # (Auto) 0.0 0.0-0.3 10^3/uL Basophils # (Auto) 0.0 0.0-0.1 10^3/uL Immature Granulocyte # (Auto) 0.0 0.0-0.1 10^3/uL Sodium Level 136 135-145 MMOL/L Potassium Level 3.4 L 3.6-5.0 MMOL/L Chloride Level 101 98-107 MMOL/L Carbon Dioxide Level 21 21-32 MMOL/L Anion Gap 14 5-14 MMOL/L Blood Urea Nitrogen 9 7-18 MG/DL Creatinine 0.77 0.60-1.30 MG/DL Estimat Glomerular Filtration Rate 84 BUN/Creatinine Ratio 12 Glucose Level 136 H 70-105 MG/DL Calcium Level 9.4 8.5-10.1 MG/DL Corrected Calcium 9.4 8.5-10.1 MG/DL Magnesium Level 1.8 1.6-2.4 MG/DL Total Bilirubin 1.2 H 0.1-1.0 MG/DL Aspartate Amino Transf (AST/SGOT) 15 5-34 U/L Alanine Aminotransferase (ALT/SGPT) 13 0-55 U/L Alkaline Phosphatase 94 40-136 U/L C-Reactive Protein High Sensitivity 3.78 H 0.00-0.50 MG/DL Total Protein 7.3 6.4-8.2 GM/DL Albumin 4.0 3.2-4.5 GM/DL Urine Color YELLOW Urine Clarity CLEAR Urine pH 6.0 5-9 Urine Specific [place] 1.015 L 1.016-1.022 Urine Protein NEGATIVE NEGATIVE Urine Glucose (UA) NEGATIVE NEGATIVE Urine Ketones TRACE H NEGATIVE Urine Nitrite NEGATIVE NEGATIVE Urine Bilirubin NEGATIVE NEGATIVE Urine Urobilinogen 0.2 < = 1.0 MG/DL Urine Leukocyte Esterase NEGATIVE NEGATIVE Urine RBC (Auto) NEGATIVE NEGATIVE Urine RBC NONE /HPF Urine WBC NONE /HPF Urine Squamous Epithelial Cells 0-2 /HPF Urine Crystals NONE /LPF Urine Bacteria NEGATIVE /HPF Urine Casts NONE /LPF Urine Mucus NEGATIVE /LPF Urine Culture Indicated NO (WILNER LAUGHLIN MD) My Orders Orders - WILNER LAUGHLIN MD Cbc With Automated Diff (08/11/21 22:24) Comprehensive Metabolic Panel (08/11/21 22:24) Hs C Reactive Protein (08/11/21 22:24) Magnesium (08/11/21 22:24) Ed Iv/Invasive Line Start (08/11/21 22:24) Hyoscyamine Sl Tablet (Levsin Sl Tablet) (08/11/21 22:30) Ondansetron Injection (Zofran Injectio (08/11/21 22:30) Ua Culture If Indicated (08/11/21 23:12) Fentanyl Inj (Sublimaze Injection) (08/11/21 23:45) (WILNER LAUGHLIN MD) Medications Given in ED Current Medications Medications Dose Ordered Sig/Candi Route Start Time Stop Time Status Last Admin Dose Admin Fentanyl Citrate 50 mcg ONCE ONCE IVP 08/11/21 23:45 08/11/21 23:46 DC 08/11/21 23:43 50 MCG Hyoscyamine Sulfate 0.25 mg ONCE ONCE PO 08/11/21 22:30 08/11/21 22:31 DC 08/11/21 22:53 0.25 MG Ondansetron HCl 8 mg ONCE ONCE IVP 08/11/21 22:30 08/11/21 22:31 DC 08/11/21 22:53 8 MG (WILNER LAUGHLIN MD) Vital Signs/I&O 08/11/21 08/11/21 21:00 22:50 Temp 36.7 Pulse 71 Resp 16 B/P (MAP) 168/87 (114) Pulse Ox 95 O2 Delivery Room Air (WILNER LAUGHLIN MD) Blood Pressure Mean: 114 Progress Progress Note : Time: 23:52 Progress Note Patient was nervous about her persistent symptoms and an increase in cramping and hematochezia. She was offered work-up with labs and IV hydration which she appreciated. Labs were stable and unremarkable. She was treated with Levsin and Zofran but did not have significant improvement in her condition. She had brief relief of cramping after the Levsin but it promptly returned. She was offered admission to treat with IV antibiotics and for symptom management which she again appreciated. Case was discussed with Dr. Quinones who is agreeable to admission. We will treat her with Rocephin and Flagyl by IV route. I discussed CODE STATUS and patient wishes to be a full code at this time. I did note in patient's chart that she had a colonoscopy in 2008 revealing colitis, diverticulosis, and internal and external hemorrhoids. No colonoscopy was on file since 2008. (WILNER LAUGHLIN MD) Departure Communication (Admissions) Time/Spoke to Admitting Phy: 23:45 Dr. Quinones (WILNER LAUGHLIN MD) Impression Primary Impression: Diverticulitis Additional Impressions: Left lower quadrant pain Intestinal cramps Hematochezia Disposition: HOME, SELF-CARE Condition: Improved Admissions Decision to Admit Reason: Admit from ER (General) Decision to Admit/Date: Aug 11, 2021 Time/Decision to Admit Time: 23:45 (WILNER LAUGHLIN MD) Departure-Patient Inst. Decision time for Depature: 23:51 (WILNER LAUGHLIN MD) Referrals: [facility] [place] [facility] (PCP) Primary Care Physician TURNER GARVEY (Family) Primary Care Physician Medical Student Attestation and Attending Note: I have personally interviewed and examined this patient along with Maria C Curiel, MS 4. I have reviewed student documentation including history, physical, and assessments. I agree with the documentation except where otherwise noted. Exam: General: Alert, oriented, mild distress, well developed HEENT: Normocephalic and atraumatic Heart: Regular rate and rhythm without murmur Lungs: Clear to auscultation bilaterally with normal effort Abdomen: Soft, moderate tenderness in the left lower quadrant, nondistended, normal bowel sounds Neuropsych: Alert, oriented, no focal deficits Skin: Warm and dry without rashes (WILNER LAUGHLIN MD) MARIA C CURIEL MED STUDENT Aug 11, 2021 21:34 WILNER LAUGHLIN MD Aug 11, 2021 23:54
[2021-08-11] MEDS ORDERED: ONDANSETRON 4 MG/2 ML (SDV) Z0FRAN IVP ONE (22:30)
[2021-08-11] MEDS ORDERED: HYOSCYAMINE 0.125 MG (LEVSIN) TAB PO ONE (22:30)
[2021-08-11 22:54] LABS: BASOPHILS % (AUTO) 0 % (0-10); EOSINOPHILS % (AUTO) 0 % (0-10); HEMATOCRIT 44 % (35-52); HEMOGLOBIN 14.9 g/dL (11.5-16.0); LYMPHOCYTES # (AUTO) 0.9 10^3/uL (1.0-4.0); LYMPHOCYTES % (AUTO) 9 % (12-44); MEAN CORPUSCULAR HEMOGLOBIN 30 pg (25-34); MEAN CORPUSCULAR HGB CONC 34 g/dL (32-36); MEAN CORPUSCULAR VOLUME 89 fL (80-99); MEAN PLATELET VOLUME 10.7 fL (9.0-12.2); MONOCYTES # (AUTO) 0.5 10^3/uL (0.0-1.0); MONOCYTES % (AUTO) 5 % (0-12); NEUTROPHILS # (AUTO) 8.3 10^3/uL (1.8-7.8); NEUTROPHILS % (AUTO) 85 % (42-75); PLATELET COUNT 198 10^3/uL (130-400); WHITE BLOOD COUNT 9.8 10^3/uL (4.3-11.0)
[2021-08-11 23:12] LABS: POTASSIUM 3.4 MMOL/L (3.6-5.0)
[2021-08-11 23:13] LABS: CALCIUM 9.4 MG/DL (8.5-10.1)
[2021-08-11 23:14] LABS: TOTAL PROTEIN 7.3 GM/DL (6.4-8.2)
[2021-08-11 23:16] LABS: BILIRUBIN,TOTAL 1.2 MG/DL (0.1-1.0)
[2021-08-11 23:18] LABS: CREATININE SERUM 0.77 MG/DL (0.60-1.30)
[2021-08-11 23:19] LABS: BILIRUBIN,URINE NEGATIVE (NEGATIVE); CLARITY,URINE CLEAR; COLOR,URINE YELLOW; GLUCOSE, URINE (UA) NEGATIVE (NEGATIVE); KETONES,URINE TRACE (NEGATIVE); LEUKOCYTE ESTERASE ,URINE NEGATIVE (NEGATIVE); NITRITE,URINE NEGATIVE (NEGATIVE); PROTEIN,URINE NEGATIVE (NEGATIVE)
[2021-08-11 23:20] LABS: MAGNESIUM 1.8 MG/DL (1.6-2.4)
[2021-08-11 23:25] LABS: BACTERIA,URINE NEGATIVE /HPF; SQUAMOUS EPITHELIAL CELL,UR 0-2 /HPF
[2021-08-11] MEDS ORDERED: fentaNYL INJ 100 MCG/2 ML AMP IVP ONE (23:45)
[2021-08-11] MEDS ORDERED: cefTRIAXone 1 GM PRE-MIX 50 ML IV STA (23:54)
[2021-08-12] MEDS ORDERED: LACTATED RINGERS 1,000 ML IV ONE (00:38)
[2021-08-12 00:45] VITALS: BP 178/78
[2021-08-12] MEDS: metroNIDAZOLE 500 MG/100 ML IVPB (PRE-MIX) IV SCH ×3 (01:23→21:46)
[2021-08-12] MEDS: LACTATED RINGERS 1,000 ML IV SCH ×4 (01:23→18:24)
[2021-08-12] MEDS: fentaNYL INJ 100 MCG/2 ML AMP IV PRN ×4 (02:03→21:21)
[2021-08-12 03:13] VITALS: BP 151/62
[2021-08-12 05:18] LABS: BASOPHILS % (AUTO) 0 % (0-10); EOSINOPHILS # (AUTO) 0.1 10^3/uL (0.0-0.3); EOSINOPHILS % (AUTO) 1 % (0-10); HEMATOCRIT 41 % (35-52); HEMOGLOBIN 13.7 g/dL (11.5-16.0); LYMPHOCYTES # (AUTO) 1.3 10^3/uL (1.0-4.0); LYMPHOCYTES % (AUTO) 16 % (12-44); MEAN CORPUSCULAR HEMOGLOBIN 30 pg (25-34); MEAN CORPUSCULAR HGB CONC 34 g/dL (32-36); MEAN CORPUSCULAR VOLUME 89 fL (80-99); MEAN PLATELET VOLUME 10.9 fL (9.0-12.2); MONOCYTES # (AUTO) 0.5 10^3/uL (0.0-1.0); MONOCYTES % (AUTO) 6 % (0-12); NEUTROPHILS # (AUTO) 5.9 10^3/uL (1.8-7.8); NEUTROPHILS % (AUTO) 77 % (42-75); PLATELET COUNT 162 10^3/uL (130-400); WHITE BLOOD COUNT 7.8 10^3/uL (4.3-11.0)
[2021-08-12 05:36] LABS: POTASSIUM 3.5 MMOL/L (3.6-5.0)
[2021-08-12 05:42] LABS: CREATININE SERUM 0.73 MG/DL (0.60-1.30)
[2021-08-12] MEDS ORDERED: CATHETER FLUSH 10 ML SYR IVP PRN (06:45)
[2021-08-12 07:26] VITALS: BP 136/78
[2021-08-12] MEDS ORDERED: KCL 20 MEQ TAB (K-DUR) PO ONE (08:15)
[2021-08-12] MEDS: ONDANSETRON 4 MG/2 ML (SDV) Z0FRAN IV PRN (09:27)
[2021-08-12 11:18] VITALS: BP 132/77
[2021-08-12] MEDS ORDERED: LACT1CAP62 PO (12:10)
[2021-08-12] MEDS ORDERED: ACHD5005 PO (12:10)
[2021-08-12] MEDS ORDERED: THYR30TA21 PO (12:10)
[2021-08-12] MEDS ORDERED: CEPH500C PO (12:10)
[2021-08-12] MEDS ORDERED: PROM25TA14 PO (12:10)
[2021-08-12] MEDS ORDERED: VITA100T8 PO (12:10)
[2021-08-12] MEDS ORDERED: [UNRECOGNIZED DRUG - OTHER] PO (12:10)
[2021-08-12] MEDS ORDERED: METR-145 PO (12:10)
[2021-08-12] MEDS ORDERED: VITAMIN D TOP (12:10)
[2021-08-12] MEDS ORDERED: ONDA4TAB11 PO (12:10)
--- NOTE | 2021-08-12 13:16 | History & Physical ---
BASIM FAULKNER III MED STUDENT 08/12/21 1316: HPI History of Present Illness: Pt is a 66yo female w/ pmhx of IBS, barrets esophagus, hx of diverticulitis who presented to the ED for 4-5 days of worsening lower abdominal pain and 2 days of bloody stool. Does endorse nausea associated w/ this. Describes the bloody stool as being darker, w/ some bright red streaks. She was recently seen on 08/10 and diagnosed w/ UTI vs diverticulitis and started on keflex and flagyl w/ pain control. However pain worsened, prompting return to the ED for further management. States that she has had diverticulitis in the past about 1 year ago that feels similar to current pain. Localizes the majority of the pain to the LLQ. Denies any CP, SOB, dysuria, recorded fevers. does endorse some chills and diaphoresis prior to arrival. Source: patient Exam Limitations: no limitations Date seen by provider: Aug 12, 2021 Time Seen by Provider: 10:30 Attending Physician Jayne Quinones MD PCP [facility] Date of Admission Aug 11, 2021 at 23:49 Home Medications Home Medications Reviewed patient Home Medication Reconciliation performed by pharmacy medication reconciliations certified hyperbaric technician and/or nursing. Patients Allergies have been reviewed. Allergies Coded Allergies: Iodinated Contrast Media (Verified Allergy, Severe, 07/20/19) Sulfa (Sulfonamide Antibiotics) (Unverified Allergy, Mild, 12/20/08) indomethacin (Unverified Allergy, Mild, 12/20/08) iodine (Unverified Allergy, Mild, 12/20/08) lansoprazole (Unverified Allergy, Mild, Pt has received Pantoprazole in the past w/o issue, 10/02/19) latex (Unverified Allergy, Mild, 12/20/08) meperidine (Unverified Allergy, Mild, 12/20/08) paroxetine (Unverified Allergy, Mild, 12/20/08) ciprofloxacin (Verified Allergy, Unknown, 07/20/19) Uncoded Allergies: ANIMAL DANDER (Allergy, Mild, 12/20/08) TAPE (Allergy, Mild, 12/20/08) [id number] Hx Patient Social History Smoking Status: Never a Smoker Recent Hopitalizations: No Alcohol Use?: No Have you traveled recently?: No Immunizations Up To Date Tetanus Booster (TDap): Unknown Influenza Vaccine Up-to-Date: Yes; Up-to-Date First/Initial COVID19 Vaccinat: 07/03/20 Second COVID19 Vaccination Bernardo: 08/06/20 Third COVID19 Vaccination Date: 05/02 COVID19 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 Asthma 2. Depression 3. Irritable bowel syndrome 4. barrets esophagus 5. diverticulitis 6. pancreatitis (?) Past surgical history 1. Cholecystectomy 2. Hysterectomy 3. Appendectomy 4. Stents for kidney stone Family Medical History Significant Family History: CAD Under 55 Years Old, Hypertension, Renal Disease Family History: Alcoholism 19 FATHER G8 SISTER G8 SISTER Arthritis 19 FATHER 19 MOTHER G8 SISTER G8 SISTER G8 SISTER G8 SISTER Cardiovascular disease 19 MOTHER Cataracts 19 FATHER 19 MOTHER Deafness or hearing loss 19 FATHER 19 MOTHER Dementia 19 MOTHER Drug abuse G8 BROTHER Fibrocystic disease of breast 19 MOTHER G8 SISTER G8 SISTER Headache disorder 19 FATHER 19 MOTHER G8 BROTHER G8 SISTER G8 SISTER G8 SISTER G8 SISTER Hypertension 19 FATHER Kidney disease 19 FATHER Psychosocial problem G8 BROTHER Respiratory disorder G8 SISTER G8 SISTER G8 SISTER G8 SISTER Review of Systems (CHC) Constitutional: chills, diaphoresis; No fever; weakness EENTM: no symptoms reported Respiratory: no symptoms reported Cardiovascular: no symptoms reported Gastrointestinal: abdominal pain (LLQ), constipation, diarrhea, melena, nausea Genitourinary: no symptoms reported Musculoskeletal: no symptoms reported Skin: no symptoms reported Psychiatric/Neurological: No Symptoms Reported Reviewed Test Results Reviewed Test Results Lab 08/12/21 08/12/21 08/12/21 08/12/21 03:13 07:26 08:00 11:18 Temp 36.6 36.8 36.6 Pulse 59 62 59 Resp 18 20 20 B/P (MAP) 151/62 (91) 136/78 (97) 132/77 (95) Pulse Ox 96 93 98 97 O2 Delivery Room Air Room Air Room Air Room Air Laboratory Tests Test 08/11/21 22:49 08/11/21 23:10 08/12/21 05:00 Range/Units White Blood Count 9.8 7.8 4.3-11.0 10^3/uL Red Blood Count 4.96 4.57 3.80-5.11 10^6/uL Hemoglobin 14.9 13.7 11.5-16.0 g/dL Hematocrit 44 41 35-52 % Mean Corpuscular Volume 89 89 80-99 fL Mean Corpuscular Hemoglobin 30 30 25-34 pg Mean Corpuscular Hemoglobin Concent 34 34 32-36 g/dL Red Cell Distribution Width 13.1 13.1 10.0-14.5 % Platelet Count 198 162 130-400 10^3/uL Mean Platelet Volume 10.7 10.9 9.0-12.2 fL Immature Granulocyte % (Auto) 0 0 % Neutrophils (%) (Auto) 85 H 77 H 42-75 % Lymphocytes (%) (Auto) 9 L 16 12-44 % Monocytes (%) (Auto) 5 6 0-12 % Eosinophils (%) (Auto) 0 1 0-10 % Basophils (%) (Auto) 0 0 0-10 % Neutrophils # (Auto) 8.3 H 5.9 1.8-7.8 10^3/uL Lymphocytes # (Auto) 0.9 L 1.3 1.0-4.0 10^3/uL Monocytes # (Auto) 0.5 0.5 0.0-1.0 10^3/uL Eosinophils # (Auto) 0.0 0.1 0.0-0.3 10^3/uL Basophils # (Auto) 0.0 0.0 0.0-0.1 10^3/uL Immature Granulocyte # (Auto) 0.0 0.0 0.0-0.1 10^3/uL Sodium Level 136 139 135-145 MMOL/L Potassium Level 3.4 L 3.5 L 3.6-5.0 MMOL/L Chloride Level 101 104 98-107 MMOL/L Carbon Dioxide Level 21 22 21-32 MMOL/L Anion Gap 14 13 5-14 MMOL/L Blood Urea Nitrogen 9 8 7-18 MG/DL Creatinine 0.77 0.73 0.60-1.30 MG/DL Estimat Glomerular Filtration Rate 84 90 BUN/Creatinine Ratio 12 11 Glucose Level 136 H 103 70-105 MG/DL Calcium Level 9.4 9.0 8.5-10.1 MG/DL Corrected Calcium 9.4 8.5-10.1 MG/DL Magnesium Level 1.8 1.6-2.4 MG/DL Total Bilirubin 1.2 H 0.1-1.0 MG/DL Aspartate Amino Transf (AST/SGOT) 15 5-34 U/L Alanine Aminotransferase (ALT/SGPT) 13 0-55 U/L Alkaline Phosphatase 94 40-136 U/L C-Reactive Protein High Sensitivity 3.78 H 0.00-0.50 MG/DL Total Protein 7.3 6.4-8.2 GM/DL Albumin 4.0 3.2-4.5 GM/DL Urine Color YELLOW Urine Clarity CLEAR Urine pH 6.0 5-9 Urine Specific [place] 1.015 L 1.016-1.022 Urine Protein NEGATIVE NEGATIVE Urine Glucose (UA) NEGATIVE NEGATIVE Urine Ketones TRACE H NEGATIVE Urine Nitrite NEGATIVE NEGATIVE Urine Bilirubin NEGATIVE NEGATIVE Urine Urobilinogen 0.2 < = 1.0 MG/DL Urine Leukocyte Esterase NEGATIVE NEGATIVE Urine RBC (Auto) NEGATIVE NEGATIVE Urine RBC NONE /HPF Urine WBC NONE /HPF Urine Squamous Epithelial Cells 0-2 /HPF Urine Crystals NONE /LPF Urine Bacteria NEGATIVE /HPF Urine Casts NONE /LPF Urine Mucus NEGATIVE /LPF Urine Culture Indicated NO Radiology CT ABDOMEN/PELVIS WO on 08/10/2021 TECHNIQUE: Unenhanced CT imaging of the abdomen and pelvis was performed. 2-D reformats are created and submitted for interpretation. Automatic exposure controls were utilized to optimize patient dose. INDICATION: Left-sided pain COMPARISON: 10/02/2019 FINDINGS: Evaluation of the abdominal viscera is mildly limited without contrast. Lower chest: The lung bases are clear. No pericardial or pleural effusion. Peritoneum: No free intraperitoneal air or fluid. Liver and biliary system: Unenhanced liver is normal. Cholecystectomy. No biliary duct dilatation. Spleen and Pancreas: Spleen is normal. Unenhanced pancreas is grossly normal. Adrenals: Normal. tract: No hydronephrosis or ureteral dilatation. Urinary bladder is decompressed. There are no obstructing renal or ureteral stones. A nonobstructing 5 mm stone in the lower pole of the right kidney is stable since prior examination. Uterus surgically absent. GI tract: Stomach is decompressed. No bowel obstruction. Sigmoid colon diverticulosis with mild wall thickening. There is minimal fat stranding around the sigmoid colon diverticula which may represent a mild diverticulitis. No abscess. Appendix is not seen and likely surgically absent. Vasculature and Lymph nodes: Normal caliber aorta. No abdominal or pelvic lymphadenopathy. Musculoskeletal: No concerning osseous lesion. IMPRESSION: 1. No obstructive uropathy. Stable 5 mm nonobstructing stone in the lower pole of the right kidney. 2. Sigmoid colon diverticulosis with minimal stranding of pericolonic fat. This may be due to acute diverticulitis versus sequelae of more remote diverticulitis. Correlation with symptomatology is advised. 3. No abscess or perforation. Physical Exam-([facility]) Physical Exam Vital Signs VS - Last 72 Hours, by Label 08/11/21 08/11/21 08/12/21 08/12/21 21:00 22:50 00:33 00:45 Temp 36.7 36.7 Pulse 71 70 Resp 16 16 B/P (MAP) 168/87 (114) 67/87 Pulse Ox 95 97 97 O2 Delivery Room Air Room Air Room Air 08/12/21 08/12/21 08/12/21 08/12/21 00:45 03:13 07:26 08:00 Temp 36.6 36.6 36.8 Pulse 59 59 62 Resp 16 18 20 B/P (MAP) 178/78 (111) 151/62 (91) 136/78 (97) Pulse Ox 96 96 93 98 O2 Delivery Room Air Room Air Room Air Room Air 08/12/21 11:18 Temp 36.6 Pulse 59 Resp 20 B/P (MAP) 132/77 (95) Pulse Ox 97 O2 Delivery Room Air Capillary Refill : Less Than 3 Seconds General Appearance: WD/WN, moderate distress (in obvious discomfort from LLQ pain ) HEENT: PERRL/EOMI, pharynx normal Neck: non-tender, full range of motion, supple, normal inspection Respiratory: chest non-tender, lungs clear, normal breath sounds, no respiratory distress, no accessory muscle use Cardiovascular: normal peripheral pulses, regular rate, rhythm, no edema, no g allop, no JVD, no murmur Peripheral Pulses: 2+ Dorsalis Pedis (R), 2+ Left Dors-Pedis (L), 2+ Radial Pulses (R), 2+ Radial Pulses (L) Gastrointestinal: normal bowel sounds, soft; No distended; guarding (guarding in LLQ); No rebound; tenderness (mostly LLQ, though w/ radiation to LUQ and RLQ) Rectal: deferred Back: normal inspection, no CVA tenderness Extremities: normal range of motion, non-tender, normal inspection, normal capillary refill Neurologic/Psychiatric: 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 No abscess or fistula seen at this time. No leukocytosis on admission. Afebrile. Rocephin and flagyl started in the ED. Pt continues to have significant pain w/ minimal PO intake on exam of 08/12. Will continue admission for another day of IV abx and IV hydration w/ LR. Nausea and pain controlled w/ zofran and fentanyl. Given improvement on exam on 08/13, will likely d/c home w/ oral abx options and recommendations to follow-up with general surgery for rec ommendations of possibly removing disease sigmoid colon w/ hope to prevent recurrent diverticulitis. Pt reports allergy to cipro in the past. Qualifiers: Qualified Codes: K57.32 - Diverticulitis of large intestine without perforation or abscess without bleeding (2) IBS (irritable bowel syndrome) Status: Chronic Assessment & Plan: Pt reports history of mixed IBS. No recent changes in regards to IBS status from patient perspective. Does report have 8 polyps removed about 8 months ago, however does think these were benign polyps not needing repeat colonoscopy soon. Qualifiers: Qualified Codes: K58.2 - Mixed irritable bowel syndrome JAYNE QUINONES MD 08/12/21 3115: Home Medications Allergies Coded Allergies: Iodinated Contrast Media (Verified Allergy, Severe, 07/20/19) Sulfa (Sulfonamide Antibiotics) (Unverified Allergy, Mild, 12/20/08) indomethacin (Unverified Allergy, Mild, 12/20/08) iodine (Unverified Allergy, Mild, 12/20/08) lansoprazole (Unverified Allergy, Mild, Pt has received Pantoprazole in the past w/o issue, 10/02/19) latex (Unverified Allergy, Mild, 12/20/08) meperidine (Unverified Allergy, Mild, 12/20/08) paroxetine (Unverified Allergy, Mild, 12/20/08) ciprofloxacin (Verified Allergy, Unknown, 07/20/19) Uncoded Allergies: ANIMAL DANDER (Allergy, Mild, 12/20/08) TAPE (Allergy, Mild, 12/20/08) [id number] Hx Family Medical History Family History: Alcoholism 19 FATHER G8 SISTER G8 SISTER Arthritis 19 FATHER 19 MOTHER G8 SISTER G8 SISTER G8 SISTER G8 SISTER Cardiovascular disease 19 MOTHER Cataracts 19 FATHER 19 MOTHER Deafness or hearing loss 19 FATHER 19 MOTHER Dementia 19 MOTHER Drug abuse G8 BROTHER Fibrocystic disease of breast 19 MOTHER G8 SISTER G8 SISTER Headache disorder 19 FATHER 19 MOTHER G8 BROTHER G8 SISTER G8 SISTER G8 SISTER G8 SISTER Hypertension 19 FATHER Kidney disease 19 FATHER Psychosocial problem G8 BROTHER Respiratory disorder G8 SISTER G8 SISTER G8 SISTER G8 SISTER Physical Exam-([facility]) Physical Exam General Appearance: WD/WN, mild distress (appears uncomfortable) Respiratory: lungs clear, normal breath sounds Cardiovascular: regular rate, rhythm, no murmur Gastrointestinal: normal bowel sounds, soft; No distended; guarding (guarding in LLQ), tenderness (Greatest in LLQ) Extremities: no pedal edema Neurologic/Psychiatric: alert, normal mood/affect Skin: normal color, warm/dry Assessment/Plan Assessment/Plan Admission Status: Observation Supervisory-Addendum Brief Verification & Attestation Participated in pt care: history, MDM, physical Personally performed: exam, history, MDM Care discussed with: Medical Student Procedures: n/a I personally saw and examined patient today, see my physical exam for my findings, I did not complete the same PE as the student. I directed the plan of care as documented by the medical student. BASIM FAULKNER III MED STUDENT Aug 12, 2021 13:16 JAYNE QUINONES MD Aug 12, 2021 14:55
[2021-08-12] MEDS ORDERED: PROMETHAZINE 25 MG (PHENERGAN) TAB PO PRN (15:00)
[2021-08-12] MEDS ORDERED: diphenhydrAMINE 25 MG TAB (BENADRYL) PO PRN (15:00)
[2021-08-12 15:39] VITALS: BP 129/75
[2021-08-12] MEDS: HYOSCYAMINE 0.125 MG (LEVSIN) TAB SL PRN (15:49)
[2021-08-12] MEDS: HYDROcodone/APAP 5 MG/325 MG (LORTAB) TAB PO PRN (15:49)
[2021-08-12] MEDS: ENOXAPARIN 40 MG/0.4 ML (LOVENOX) SYR SQ SCH (15:49)
[2021-08-12 19:18] VITALS: BP_SYST 109; BP_SYST 138; BP_DIAS 65; BP_DIAS 73
[2021-08-12] MEDS: cefTRIAXone 1 GM IV (PRE-MIX) 50 ML IV SCH (21:15)
[2021-08-13] VITALS: BP 137/63
[2021-08-13] MEDS: HYDROcodone/APAP 5 MG/325 MG (LORTAB) TAB PO PRN ×2 (03:10→20:30)
[2021-08-13] MEDS: ENOXAPARIN 40 MG/0.4 ML (LOVENOX) SYR SQ SCH ×2 (03:11→16:49)
[2021-08-13] MEDS: ONDANSETRON 4 MG/2 ML (SDV) Z0FRAN IV PRN (03:17)
[2021-08-13] MEDS: LACTATED RINGERS 1,000 ML IV SCH ×3 (03:19→23:52)
[2021-08-13 04:00] VITALS: BP 165/74
[2021-08-13 05:45] LABS: HEMATOCRIT 41 % (35-52); HEMOGLOBIN 13.5 g/dL (11.5-16.0); MEAN CORPUSCULAR HEMOGLOBIN 30 pg (25-34); MEAN CORPUSCULAR HGB CONC 33 g/dL (32-36); MEAN CORPUSCULAR VOLUME 91 fL (80-99); MEAN PLATELET VOLUME 11.1 fL (9.0-12.2); PLATELET COUNT 157 10^3/uL (130-400); WHITE BLOOD COUNT 4.6 10^3/uL (4.3-11.0)
[2021-08-13 05:57] LABS: ALBUMIN 3.3 GM/DL (3.2-4.5)
[2021-08-13 05:58] LABS: POTASSIUM 3.5 MMOL/L (3.6-5.0)
[2021-08-13 05:59] LABS: CALCIUM 8.9 MG/DL (8.5-10.1)
[2021-08-13] MEDS: THYROID (ARMOUR) 60 MG TABLET PO SCH (05:59)
[2021-08-13 06:00] LABS: TOTAL PROTEIN 6.1 GM/DL (6.4-8.2)
[2021-08-13 06:02] LABS: BILIRUBIN,TOTAL 0.7 MG/DL (0.1-1.0)
[2021-08-13 06:04] LABS: CREATININE SERUM 0.75 MG/DL (0.60-1.30)
[2021-08-13] MEDS: HYOSCYAMINE 0.125 MG (LEVSIN) TAB SL PRN (06:08)
[2021-08-13 07:19] VITALS: BP 142/79
[2021-08-13] MEDS ORDERED: KCL 20 MEQ TAB (K-DUR) PO ONE (07:45)
[2021-08-13] MEDS: metroNIDAZOLE 500 MG/100 ML IVPB (PRE-MIX) IV SCH ×2 (08:02→20:30)
[2021-08-13] MEDS: LACTOBACILLUS ACIDOPHILUS (PROBIOTIC) CAPSULE PO SCH (08:02)
[2021-08-13 11:09] VITALS: BP 148/83
[2021-08-13] MEDS: fentaNYL INJ 100 MCG/2 ML AMP IV PRN (12:17)
--- NOTE | 2021-08-13 13:08 | Progress Note ---
BASIM FAULKNER III MED STUDENT 08/13/21 1308: Subjective Subjective/Events-last exam On exam this AM, pt reports significant abdominal pain and nausea. Notes that during the day yesterday her pain was much improved, however starting last night into this morning her pain returned similar to when she presented to the hospital. Does endorse some chills overnight. Denies any CP, SOB, dysuria. Notes she had 5 episodes of loose stools, though this is likely related to her IBS. Was able to tolerate drinking some fluids this AM, however is afraid to try more before getting nausea meds as she does not want to throw up. Does not feel safe returning home at this time because of her significant pain and persistent nausea. Review of Systems General: Chills; No Night Sweats; Fatigue; No Malaise; Appetite (had appetite on 08/12 w/ pain and nausea medication, however minimal appetite this AM because of nausea ) HEENT: No Head Aches, No Visual Changes, No Eye Pain, No Ear Pain, No Dysphasia, No Sinus Congestion, No Post Nasal Drip, No Sore Throat, No Other Pulmonary: No Dyspnea, No Cough, No Pleuritic Chest Pain, No Other Cardiovascular: No: Chest Pain, Palpitations, Orthopnea, Paroxysmal Noc. Dyspnea, Edema, Lt Headedness, Other Gastrointestinal: Nausea, Abdominal Pain, Diarrhea; No: Vomiting, Constipation, Melena Genitourinary: No Dysuria, No Frequency, No Incontinence, No Hematuria, No Retention, No Other Musculoskeletal: No: other, neck pain, shoulder pain, arm pain, back pain, hand pain, leg pain, foot pain Neurological: No: Weakness, Numbness, Incoordination, Change in speech, Confusion, Seizures, Other Objective Exam Last Set of Vital Signs Vital Signs Date Time Temp Pulse Resp B/P (MAP) Pulse Ox O2 Delivery O2 Flow Rate FiO2 08/13/21 11:09 36.8 65 20 148/83 (104) 97 Room Air Capillary Refill : Less Than 3 Seconds I&O Intake and Output 08/13/21 00:00 Intake Total 1640 ml Output Total 2075 ml Balance -435 ml Intake Oral 1590 ml IV Total 50 ml Output Urine Total 2075 ml # Voids 2 # Bowel Movements 2 Daily Weight Change No General: Alert, Oriented X3, Cooperative, Mild Distress (in obvious discomfort from pain and nausea on exam this AM before receiving medication. On exam later, much better as pain and nausea controlled w/ scheduled medication ) HEENT: Atraumatic, PERRLA, EOMI Neck: Supple, No JVD Lungs: Clear to Auscultation, Normal Air Movement Heart: Regular Rate, Normal S1, Normal S2, No Murmurs Abdomen: Normal Bowel Sounds, Soft, Other (very tender to palpation, primarily in the LLQ w/ voluntary guarding. Abdomen not distended and not firm to exam. ) Extremities: No Clubbing, No Cyanosis, Other (trace bilateral pedal edema to ankles ) Skin: No Significant Lesion Neuro: Normal Speech, Cranial Nerves 3-12 NL Psych/Mental Status: Mental Status NL, Mood NL Results/Procedures Lab Laboratory Tests 08/13/21 05:27: White Blood Count 4.6, Red Blood Count 4.51, Hemoglobin 13.5, Hematocrit 41, Mean Corpuscular Volume 91, Mean Corpuscular Hemoglobin 30, Mean Corpuscular Hemoglobin Concent 33, Red Cell Distribution Width 13.0, Platelet Count 157, Mean Platelet Volume 11.1, Sodium Level 140, Potassium Level 3.5L, Chloride Level 104, Carbon Dioxide Level 23, Anion Gap 13, Blood Urea Nitrogen 6L, Creatinine 0.75, Estimat Glomerular Filtration Rate 87, BUN/Creatinine Ratio 8, Glucose Level 96, Calcium Level 8.9, Corrected Calcium 9.5, Total Bilirubin 0.7, Aspartate Amino Transf (AST/SGOT) 14, Alanine Aminotransferase (ALT/SGPT) 13, Alkaline Phosphatase 83, Total Protein 6.1L, Albumin 3.3 Laboratory Tests Test 08/13/21 05:27 Range/Units White Blood Count 4.6 4.3-11.0 10^3/uL Red Blood Count 4.51 3.80-5.11 10^6/uL Hemoglobin 13.5 11.5-16.0 g/dL Hematocrit 41 35-52 % Mean Corpuscular Volume 91 80-99 fL Mean Corpuscular Hemoglobin 30 25-34 pg Mean Corpuscular Hemoglobin Concent 33 32-36 g/dL Red Cell Distribution Width 13.0 10.0-14.5 % Platelet Count 157 130-400 10^3/uL Mean Platelet Volume 11.1 9.0-12.2 fL Sodium Level 140 135-145 MMOL/L Potassium Level 3.5 L 3.6-5.0 MMOL/L Chloride Level 104 98-107 MMOL/L Carbon Dioxide Level 23 21-32 MMOL/L Anion Gap 13 5-14 MMOL/L Blood Urea Nitrogen 6 L 7-18 MG/DL Creatinine 0.75 0.60-1.30 MG/DL Estimat Glomerular Filtration Rate 87 BUN/Creatinine Ratio 8 Glucose Level 96 70-105 MG/DL Calcium Level 8.9 8.5-10.1 MG/DL Corrected Calcium 9.5 8.5-10.1 MG/DL Total Bilirubin 0.7 0.1-1.0 MG/DL Aspartate Amino Transf (AST/SGOT) 14 5-34 U/L Alanine Aminotransferase (ALT/SGPT) 13 0-55 U/L Alkaline Phosphatase 83 40-136 U/L Total Protein 6.1 L 6.4-8.2 GM/DL Albumin 3.3 3.2-4.5 GM/DL Radiology CT ABDOMEN/PELVIS WO on 08/10/2021 TECHNIQUE: Unenhanced CT imaging of the abdomen and pelvis was performed. 2-D reformats are created and submitted for interpretation. Automatic exposure controls were utilized to optimize patient dose. INDICATION: Left-sided pain COMPARISON: 10/02/2019 FINDINGS: Evaluation of the abdominal viscera is mildly limited without contrast. Lower chest: The lung bases are clear. No pericardial or pleural effusion. Peritoneum: No free intraperitoneal air or fluid. Liver and biliary system: Unenhanced liver is normal. Cholecystectomy. No biliary duct dilatation. Spleen and Pancreas: Spleen is normal. Unenhanced pancreas is grossly normal. Adrenals: Normal. tract: No hydronephrosis or ureteral dilatation. Urinary bladder is decompressed. There are no obstructing renal or ureteral stones. A nonobstructing 5 mm stone in the lower pole of the right kidney is stable since prior examination. Uterus surgically absent. GI tract: Stomach is decompressed. No bowel obstruction. Sigmoid colon diverticulosis with mild wall thickening. There is minimal fat stranding around the sigmoid colon diverticula which may represent a mild diverticulitis. No abscess. Appendix is not seen and likely surgically absent. Vasculature and Lymph nodes: Normal caliber aorta. No abdominal or pelvic lymphadenopathy. Musculoskeletal: No concerning osseous lesion. IMPRESSION: 1. No obstructive uropathy. Stable 5 mm nonobstructing stone in the lower pole of the right kidney. 2. Sigmoid colon diverticulosis with minimal stranding of pericolonic fat. This may be due to acute diverticulitis versus sequelae of more remote diverticulitis. Correlation with symptomatology is advised. 3. No abscess or perforation. Assessment/Plan Assessment/Plan (1) Diverticulitis Status: Acute Assessment & Plan: CT abd/pelvis on 08/10 showed sigmoid colon diverticulosis with minimal stranding of pericolonic fat likely representing acute diverticulitis. No abscess or fistula seen at this time. No leukocytosis on admission. Afebrile. Rocephin and flagyl started in the ED. Pt continues to have significant pain w/ minimal PO intake on exam of 08/12. Nausea and pain controlled w/ zofran and fentanyl. Continue abx 08/13 - pt continues to have significant pain and nausea on exam this AM. she does not feel safe returning home as she feels she might end up vomiting and not be able to make it back to the hospital. Given persistent symptoms, will obtain an abdominal xray at this time to look for signs of obstruction, bowel gas, obvious inflammation. If xray is unremarkable, may consider repeat CT abd/pelvis at this time to r/o development of abscess/fistula to explain significant pain. Will consider introducing surgery at this time if imaging reveals pathologic findings. Qualifiers: Qualified Codes: K57.32 - Diverticulitis of large intestine without perforation or abscess without bleeding (2) IBS (irritable bowel syndrome) Status: Chronic Assessment & Plan: Pt reports history of mixed IBS. No recent changes in regards to IBS status from patient perspective. Does report have 8 polyps removed about 8 months ago, however does think these were benign polyps not needing repeat colonoscopy soon. Qualifiers: Qualified Codes: K58.2 - Mixed irritable bowel syndrome KINDRA MALDONADO MD 08/13/21 1523: Objective Exam General: Alert, No Acute Distress Lungs: Clear to Auscultation, Normal Air Movement Heart: Regular Rate, No Murmurs Abdomen: Normal Bowel Sounds, Soft, Other (marked ttp left side from umbilical level down, nondistended) Neuro: Normal Speech Psych/Mental Status: Mood NL Supervisory-Addendum Brief Verification & Attestation Participated in pt care: history, MDM, physical Personally performed: exam, history, MDM Care discussed with: Medical Student Procedures: n/a I personally examined patient today and repeated the history- see my exam for my physical exam findings, I did not repeat the same exam documented by the medical student. I directed the plan of care as directed by the medical student. BASIM FAULKNER III MED STUDENT Aug 13, 2021 13:08 KINDRA MALDONADO MD Aug 13, 2021 15:23
--- NOTE | 2021-08-13 13:58 | Diagnostic Imaging Report ---
EXAMINATION: Abdomen, one view. HISTORY: Abdominal pain. COMPARISON: 10/02/2019. FINDINGS: Bowel gas pattern is normal. No free air. IMPRESSION: 1. Normal bowel gas pattern. Dictated by: Dictated on workstation # [id number]
--- NOTE | 2021-08-13 14:30 | Consultation - Surgery ---
KELLY ORTIZ 08/13/21 1430: History of Present Illness History of Present Illness Patient Consulted On(jennifer/time) 08/13/21 14:26 Date Seen by Provider: Aug 13, 2021 Time Seen by Provider: 14:15 Reason for Visit: Abdominal pain; blood in stool History of Present Illness Consult requested by Dr. Quinones in regard to abdominal pain and recent hx of bloody stools. Pt is a 66 yo female with hx of diverticulitis, IBS, hemorrhoids, GERD, Burnett's esophagus, and a hx of pancreatitis as well as a nodule on her pancreas. She presented to [facility] on 08/10 with LLQ abdominal pain for about two days. The pain began as a pressure sensation and worsened to be a sharp, cramping pain that radiated across her back at times. She also vomited 3x prior to coming to the ER. There was no blood noted in the emesis. She was diagnosed with a UTI and diverticulitis, and was sent home with Keflex, flagyl, and lortab. Despite taking the medication, the pain worsened. She then had two bloody bowel movements while at home. They were black, tarry stools with no bright red blood present. The pain was 10/10 at its worst. A heating pad helped slightly. Since being in the hospital, she has had diarrhea with no blood in her stools. She has not vomited again. The pain and nausea continue (currently 6/10 pain), and she has had some chills. She is on a CLD. Her most recent colonoscopy was a little over [address] Hoang. She believes she had 8 benign polyps removed. Around the same time, she reports having an ERCP as well as two EGD's. The pt denies CP, SOB, palpitations, and fever at this time. Allergies and Home Medications Allergies Coded Allergies: Iodinated Contrast Media (Verified Allergy, Severe, 07/20/19) Sulfa (Sulfonamide Antibiotics) (Unverified Allergy, Mild, 12/20/08) indomethacin (Unverified Allergy, Mild, 12/20/08) iodine (Unverified Allergy, Mild, 12/20/08) lansoprazole (Unverified Allergy, Mild, Pt has received Pantoprazole in the past w/o issue, 10/02/19) latex (Unverified Allergy, Mild, 12/20/08) meperidine (Unverified Allergy, Mild, 12/20/08) paroxetine (Unverified Allergy, Mild, 12/20/08) ciprofloxacin (Verified Allergy, Unknown, 07/20/19) Uncoded Allergies: ANIMAL DANDER (Allergy, Mild, 12/20/08) TAPE (Allergy, Mild, 12/20/08) Patient Home Medication List Cephalexin (Cephalexin) 500 Mg Capsule, 500 MG PO Q8H, (Reported) Entered as Reported by: KEAGAN NIELSEN on 08/12/211209 Last Action: Held Diphenhydramine HCl (Benadryl) 25 Mg Capsule, 25-50 MG PO Q4 -6H PRN for ALLERGY SYMPTOMS, (Reported) Entered as Reported by: KEAGAN NIELSEN on 10/02/19925 Last Action: Converted Hydrocodone/Acetaminophen (Hydrocodone-Acetamin 5-325 mg) 1 Each Tablet, 1 EA PO Q6H PRN for PAIN-MODERATE (5-7), (Reported) Entered as Reported by: KEAGAN NIELSEN on 08/12/211209 Last Action: Continued Lactobacillus Acidophilus (Probiotic) 1 Each Capsule, 1 EACH PO DAILY, (Reported) Entered as Reported by: KEAGAN NIELSEN on 08/12/211209 Last Action: Converted Metronidazole (Metronidazole) 500 Mg Tablet, 500 MG PO BID, (Reported) Entered as Reported by: KEAGAN NIELSEN on 08/12/211209 Last Action: Held Ondansetron (Ondansetron Odt) 4 Mg Tab.rapdis, 4 MG PO Q6H PRN for NAUSEA/VOMITING-1ST LINE, (Reported) Entered as Reported by: KEAGAN NIELSEN on 08/12/211209 Last Action: Held Promethazine HCl (Promethazine Tablet) 25 Mg Tablet, 25 MG PO Q8H PRN for NAUSEA/VOMITING-2ND LINE, (Reported) Entered as Reported by: KEAGAN NIELSEN on 08/12/211209 Last Action: Continued Thyroid,Pork (Cementer Hand Thyroid) 30 Mg Tablet, 30 MG PO DAILY, (Reported) Entered as Reported by: KEAGAN NIELSEN on 08/12/211209 Last Action: Converted Vitamin E Mixed (Vitamin E) 100 Unit Tablet, 100 UNIT PO DAILY, (Reported) Entered as Reported by: KEAGAN NIELSEN on 08/12/211209 Last Action: Held [Sandrine Support] , 1 EA PO DAILY, (Reported) Entered as Reported by: KEAGAN NIELSEN on 08/12/211209 Last Action: Held [Vitamin D Cream] CR, 1 APPLIC TOP UD, (Reported) Entered as Reported by: KEAGAN NIELSEN on 08/12/211209 Last Action: Held Discontinued Medications Albuterol Sulfate (Proair Hfa) 8.5 Gm Hfa.aer.ad, 2 PUFF IH Q4H PRN for SHORTNESS OF BREATH, (Reported) Discontinued Reason: No Longer Taking Entered as Reported by: MONICA CASTLE on 04/23/15 0908 Last Action: Discontinued Cephalexin (Cephalexin) 500 Mg Capsule, 500 MG PO Q8H Discontinued Reason: No Longer Taking Prescribed by: SKY PURCELL on 08/10/211819 Last Action: Discontinued Hydrocodone Bit/Acetaminophen (HYDROcodone/APAP 5 MG/325 MG TAB) 1 Tab Tab, 1 TAB PO Q6H PRN for PAIN-MODERATE (5-7) Discontinued Reason: No Longer Taking Prescribed by: SKY PURCELL on 08/10/211820 Last Action: Discontinued Hydrocodone/Acetaminophen (Hydrocodone-Acetamin 7.5-325) 1 Each Tablet, 1 EACH PO Q4H PRN for PAIN-MODERATE (5-7) Discontinued Reason: No Longer Taking Prescribed by: LAUREN DHILLON on 10/05/19 1327 Last Action: Discontinued Metronidazole (Metronidazole) 500 Mg Tablet, 500 MG PO BID Discontinued Reason: No Longer Taking Prescribed by: SKY PURCELL on 08/10/211819 Last Action: Discontinued Multivitamin (Multivitamins) 1 Each Tablet, 1 EACH PO DAILY, (Reported) Discontinued Reason: No Longer Taking Entered as Reported by: KEAGAN NIELSEN on 07/23/19 0853 Last Action: Discontinued Ondansetron (Ondansetron Odt) 4 Mg Tab.rapdis, 4 MG PO Q6H PRN for NAUSEA/VOMITING Discontinued Reason: No Longer Taking Prescribed by: SKY PURCELL on 08/10/211823 Last Action: Discontinued Promethazine HCl (Promethazine Tablet) 25 Mg Tablet, 25 MG PO Q8H PRN for NAUSEA/VOMITING-2ND LINE Discontinued Reason: No Longer Taking Prescribed by: LAUREN DHILLON on 10/05/19 2515 Last Action: Discontinued Past Ekrydmx-Ssmpzy-Obdqrl Hx Patient Social History Smoking Status: Never a Smoker Recent Hopitalizations: No Alcohol Use?: No Have you traveled recently?: No Immunizations Up To Date Tetanus Booster (TDap): Unknown PED Vaccines UTD: Yes Date of Influenza Vaccine: Mar 26, 2019 Seasonal Allergies Seasonal Allergies: No Surgeries History of Surgeries: Yes (BEN; HYST/BSO/APPY;EGD/COLONOSCOPIES;URETERAL STENTS; BILAT TKR;BREAST BX) Surgeries: Appendectomy, Breast, Gallbladder, Hysterectomy, Joint Replacement, Oophorectomy, Orthopedic, Renal Respiratory History of Respiratory Disorde: Yes Respiratory Disorders: Asthma Cardiovascular History of Cardiac Disorders: Yes Cardiac Disorders: Hypertension Neurological History of Neurological Disord: No Reproductive System Hx Reproductive Disorders: No Sexually Transmitted Disease: No HIV/AIDS: No Female Reproductive Disorders: Menstrual Problems 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, 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 Genitourinary History of Genitourinary Disor: Yes (URETERAL STENTS) Genitourinary Disorders: Bladder Infection, Kidney Stones Gastrointestinal History of Gastrointestinal Di: Yes (EGD/COLONOSCOPIES;) Gastrointestinal Disorders: Gastroesophageal Reflux, Chronic Constipation, Diverticulosis, Hemorrhoids, Pancreatitis, Chronic Diarrhea, Hiatal Hernia, Gall Bladder Disease, Irritable Bowel Musculoskeletal History of Musculoskeletal Dis: Yes (BROKEN LEG CHILD) Musculoskeletal Disorders: Arthritis, Fractures Endocrine History of Endocrine Disorders: Yes (MORBID OBESITY) Endocrine Disorders: Diabetes, Non-Insulin dep HEENT History of HEENT Disorders: No Loss of Vision: Denies Hearing Impairment: Denies Cancer History of Cancer: No Psychosocial History of Psychiatric Problem: Yes Behavioral Health Disorders: Anxiety Integumentary History of Skin or Integumenta: No Blood Transfusions History of Blood Disorders: No Adverse Reaction to a Blood Tr: No Family Medical History Significant Family History: CAD Under 55 Years Old, Hypertension, Renal Disease Family Medial History: Alcoholism 19 FATHER G8 SISTER G8 SISTER Arthritis 19 FATHER 19 MOTHER G8 SISTER G8 SISTER G8 SISTER G8 SISTER Cardiovascular disease 19 MOTHER Cataracts 19 FATHER 19 MOTHER Deafness or hearing loss 19 FATHER 19 MOTHER Dementia 19 MOTHER Drug abuse G8 BROTHER Fibrocystic disease of breast 19 MOTHER G8 SISTER G8 SISTER Headache disorder 19 FATHER 19 MOTHER G8 BROTHER G8 SISTER G8 SISTER G8 SISTER G8 SISTER Hypertension 19 FATHER Kidney disease 19 FATHER Psychosocial problem G8 BROTHER Respiratory disorder G8 SISTER G8 SISTER G8 SISTER G8 SISTER Review of Systems-General Constitutional: chills (this a.m.); No fever EENTM: No hearing loss, No vision loss Respiratory: No cough, No short of breath Cardiovascular: No chest pain, No palpitations Gastrointestinal: abdominal pain (LLQ worst), diarrhea; No hematemesis, No melena (had dark tarry stools on 08/11; not since); nausea; No vomiting (no vomiting while admitted; 3 episodes before ER trip) Genitourinary: No dysuria; frequency; No hematuria Musculoskeletal: muscle cramps; No neck pain Skin: No lesions, No rash Physical Exam-General Problems Physical Exam Vital Signs Vital Signs - First Documented 08/11/21 08/11/21 21:00 22:50 Temp 36.7 Pulse 71 Resp 16 B/P (MAP) 168/87 (114) Pulse Ox 95 O2 Delivery Room Air Capillary Refill : Less Than 3 Seconds General Appearance: WD/WN, no apparent distress Eyes: Bilateral Eye Normal Inspection Respiratory: lungs clear, normal breath sounds, no respiratory distress Cardiovascular: regular rate, rhythm, no murmur Gastrointestinal: soft, tenderness (LUQ, LLQ; lesser tenderness in RLQ) Extremities: normal inspection, pedal edema Neurologic/Psychiatric: alert, normal mood/affect, oriented x 3 Skin: normal color, warm/dry Data Review Labs Laboratory Tests 08/13/21 05:27: White Blood Count 4.6, Red Blood Count 4.51, Hemoglobin 13.5, Hematocrit 41, Mean Corpuscular Volume 91, Mean Corpuscular Hemoglobin 30, Mean Corpuscular Hemoglobin Concent 33, Red Cell Distribution Width 13.0, Platelet Count 157, Mean Platelet Volume 11.1, Sodium Level 140, Potassium Level 3.5L, Chloride Level 104, Carbon Dioxide Level 23, Anion Gap 13, Blood Urea Nitrogen 6L, Creatinine 0.75, Estimat Glomerular Filtration Rate 87, BUN/Creatinine Ratio 8, Glucose Level 96, Calcium Level 8.9, Corrected Calcium 9.5, Total Bilirubin 0.7, Aspartate Amino Transf (AST/SGOT) 14, Alanine Aminotransferase (ALT/SGPT) 13, Alkaline Phosphatase 83, Total Protein 6.1L, Albumin 3.3 Assessment/Plan Assessment/Plan Assessment/Plan LUQ and LLQ abdominal pain- diverticulitis vs diverticulosis HTN Hx diverticulitis, hemorrhoids, GERD, Burnett's, pancreatitis, IBS Hx cholecystectomy, appendectomy Asthma Depression CT abd/pevlic without contrast--> per radiology, sigmoid diverticulosis, possible mild diverticulitis, nonobstructing stone in R kidney KUB- normal bowel gas pattern, no free air Continue CLD Pain management Continue Ceftriaxone and Metronidazole Monitor labs and vitals Conservative surgical management at this time PRASHANTH HOFFMANN DO 08/13/21 1703: History of Present Illness History of Present Illness Time Seen by Provider: 14:26 History of Present Illness Surgery asked to see pt regarding abdominal pain and diverticulitis. HPI per ED: This is a 66 YO female presenting to the ED with worsening lower abdominal pain and bloody BM's. Pt was seen in the ED last night for the pain and workup showed UTI and diverticulitis. She was discharged home with Rx for Abx, Zofran, and hydrocodone/acetaminophen, which she says she has been taking as prescribed. Her nausea is controlled, but she reports worsening of abdominal cramping and a quarter sized blood clot that she passed with a bowel movement. She had not been having bloody BM's the night before. Has history of hemorrhoids, but does not feel like this is similar. Has had diverticulitis multiple times in the past and feels that the pain is worse than before. When I saw pt she was still having abdominal pain, "it's not getting better". She has had some more BMs here but none have been bloody. She states she came back to be admitted because of the bloody BMs and pain. She is also nauseous but no emesis. Has not had pain this bad before and last time she had diverticulitis was "a while ago". Allergies and Home Medications Allergies Coded Allergies: Iodinated Contrast Media (Verified Allergy, Severe, 07/20/19) Sulfa (Sulfonamide Antibiotics) (Unverified Allergy, Mild, 12/20/08) indomethacin (Unverified Allergy, Mild, 12/20/08) iodine (Unverified Allergy, Mild, 12/20/08) lansoprazole (Unverified Allergy, Mild, Pt has received Pantoprazole in the past w/o issue, 10/02/19) latex (Unverified Allergy, Mild, 12/20/08) meperidine (Unverified Allergy, Mild, 12/20/08) paroxetine (Unverified Allergy, Mild, 12/20/08) ciprofloxacin (Verified Allergy, Unknown, 07/20/19) Uncoded Allergies: ANIMAL DANDER (Allergy, Mild, 12/20/08) TAPE (Allergy, Mild, 12/20/08) Patient Home Medication List Home Medication List Reviewed: Yes Cephalexin (Cephalexin) 500 Mg Capsule, 500 MG PO Q8H, (Reported) Entered as Reported by: KEAGAN NIELSEN on 08/12/211209 Last Action: Held Diphenhydramine HCl (Benadryl) 25 Mg Capsule, 25-50 MG PO Q4 -6H PRN for ALLERGY SYMPTOMS, (Reported) Entered as Reported by: KEAGAN NIELSEN on 10/02/19 0926 Last Action: Converted Hydrocodone/Acetaminophen (Hydrocodone-Acetamin 5-325 mg) 1 Each Tablet, 1 EA PO Q6H PRN for PAIN-MODERATE (5-7), (Reported) Entered as Reported by: KEAGAN NIELSEN on 08/12/211209 Last Action: Continued Lactobacillus Acidophilus (Probiotic) 1 Each Capsule, 1 EACH PO DAILY, (Reported ) Entered as Reported by: KEAGAN NIELSEN on 08/12/211209 Last Action: Converted Metronidazole (Metronidazole) 500 Mg Tablet, 500 MG PO BID, (Reported) Entered as Reported by: KEAGAN NIELSEN on 08/12/211209 Last Action: Held Ondansetron (Ondansetron Odt) 4 Mg Tab.rapdis, 4 MG PO Q6H PRN for NAUSEA/VOMITING-1ST LINE, (Reported) Entered as Reported by: KEAGAN NIELSEN on 08/12/211209 Last Action: Held Promethazine HCl (Promethazine Tablet) 25 Mg Tablet, 25 MG PO Q8H PRN for NAUSEA/VOMITING-2ND LINE, (Reported) Entered as Reported by: KEAGAN NIELSEN on 08/12/211209 Last Action: Continued Thyroid,Pork (Cementer Hand Thyroid) 30 Mg Tablet, 30 MG PO DAILY, (Reported) Entered as Reported by: KEAGAN NIELSEN on 08/12/211209 Last Action: Converted Vitamin E Mixed (Vitamin E) 100 Unit Tablet, 100 UNIT PO DAILY, (Reported) Entered as Reported by: KEAGAN NIELSEN on 08/12/211209 Last Action: Held [Sandrine Support] , 1 EA PO DAILY, (Reported) Entered as Reported by: KEAGAN NIELSEN on 08/12/211209 Last Action: Held [Vitamin D Cream] CR, 1 APPLIC TOP UD, (Reported) Entered as Reported by: KEAGAN NIELSEN on 08/12/211209 Last Action: Held Discontinued Medications Albuterol Sulfate (Proair Hfa) 8.5 Gm Hfa.aer.ad, 2 PUFF IH Q4H PRN for SHORTNESS OF BREATH, (Reported) Discontinued Reason: No Longer Taking Entered as Reported by: MONICA CASTLE on 04/23/15 0908 Last Action: Discontinued Cephalexin (Cephalexin) 500 Mg Capsule, 500 MG PO Q8H Discontinued Reason: No Longer Taking Prescribed by: SKY PURCELL on 08/10/211819 Last Action: Discontinued Hydrocodone Bit/Acetaminophen (HYDROcodone/APAP 5 MG/325 MG TAB) 1 Tab Tab, 1 TAB PO Q6H PRN for PAIN-MODERATE (5-7) Discontinued Reason: No Longer Taking Prescribed by: SKY PURCELL on 08/10/211820 Last Action: Discontinued Hydrocodone/Acetaminophen (Hydrocodone-Acetamin 7.5-325) 1 Each Tablet, 1 EACH PO Q4H PRN for PAIN-MODERATE (5-7) Discontinued Reason: No Longer Taking Prescribed by: LAUREN DHILLON on 10/05/19 1327 Last Action: Discontinued Metronidazole (Metronidazole) 500 Mg Tablet, 500 MG PO BID Discontinued Reason: No Longer Taking Prescribed by: SKY PURCELL on 08/10/211819 Last Action: Discontinued Multivitamin (Multivitamins) 1 Each Tablet, 1 EACH PO DAILY, (Reported) Discontinued Reason: No Longer Taking Entered as Reported by: KEAGAN NIELSEN on 07/23/19 0853 Last Action: Discontinued Ondansetron (Ondansetron Odt) 4 Mg Tab.rapdis, 4 MG PO Q6H PRN for NAUSEA/VOMITING Discontinued Reason: No Longer Taking Prescribed by: SKY PURCELL on 08/10/211823 Last Action: Discontinued Promethazine HCl (Promethazine Tablet) 25 Mg Tablet, 25 MG PO Q8H PRN for NAUSEA/VOMITING-2ND LINE Discontinued Reason: No Longer Taking Prescribed by: LAUREN DHILLON on 10/05/19 1327 Last Action: Discontinued Past Adaznol-Zgmjxo-Tavyli Hx Patient Social History Smoking Status: Never a Smoker Alcohol Use?: No Surgeries History of Surgeries: Yes Surgeries: Appendectomy, Breast, Gallbladder, Hysterectomy, Orthopedic Respiratory History of Respiratory Disorde: Yes Respiratory Disorders: Asthma Cardiovascular History of Cardiac Disorders: Yes Cardiac Disorders: Hypertension Neurological History of Neurological Disord: No Reproductive System : No Genitourinary History of Genitourinary Disor: Yes Genitourinary Disorders: Kidney Stones, UTI-Chronic Gastrointestinal History of Gastrointestinal Di: Yes Gastrointestinal Disorders: Gastroesophageal Reflux, Burnett's Esophagus, Diverticulosis, Pancreatitis, Polyps, Hiatal Hernia, Gall Bladder Disease, Irritable Bowel Musculoskeletal History of Musculoskeletal Dis: Yes Musculoskeletal Disorders: Arthritis Endocrine History of Endocrine Disorders: Yes Endocrine Disorders: Diabetes, Non-Insulin dep HEENT History of HEENT Disorders: No Loss of Vision: Denies Hearing Impairment: Denies Cancer History of Cancer: No Psychosocial History of Psychiatric Problem: Yes Behavioral Health Disorders: Anxiety Integumentary History of Skin or Integumenta: No Family Medical History Significant Family History: CAD Over 55 Years Old, Hypertension, Lung Disease, Migraines, Vascular Disease Family Medial History: Alcoholism 19 FATHER G8 SISTER G8 SISTER Arthritis 19 FATHER 19 MOTHER G8 SISTER G8 SISTER G8 SISTER G8 SISTER Cardiovascular disease 19 MOTHER Cataracts 19 FATHER 19 MOTHER Deafness or hearing loss 19 FATHER 19 MOTHER Dementia 19 MOTHER Drug abuse G8 BROTHER Fibrocystic disease of breast 19 MOTHER G8 SISTER G8 SISTER Headache disorder 19 FATHER 19 MOTHER G8 BROTHER G8 SISTER G8 SISTER G8 SISTER G8 SISTER Hypertension 19 FATHER Kidney disease 19 FATHER Psychosocial problem G8 BROTHER Respiratory disorder G8 SISTER G8 SISTER G8 SISTER G8 SISTER Review of Systems-General Constitutional: chills (this a.m.); No fever EENTM: No hearing loss, No vision loss Respiratory: No cough, No short of breath Cardiovascular: No chest pain, No palpitations Gastrointestinal: abdominal pain (LLQ worst), diarrhea; No hematemesis, No melena (had dark tarry stools on 08/11; not since); nausea; No vomiting (no vomiting while admitted; 3 episodes before ER trip) Genitourinary: No dysuria, No frequency, No hematuria Musculoskeletal: joint pain, joint swelling, muscle cramps; No neck pain Skin: No lesions, No rash Psychiatric/Neurological: Anxiety; Denies Depressed, Denies Seizure Physical Exam-General Problems Physical Exam General Appearance: no apparent distress, obese Eyes: Bilateral Eye PERRL, Bilateral Eye EOMI HEENT: pharynx normal; No scleral icterus (R), No scleral icterus (L) Neck: non-tender, supple Respiratory: lungs clear, normal breath sounds, no respiratory distress, no accessory muscle use Cardiovascular: regular rate, rhythm, no murmur Gastrointestinal: soft, no organomegaly, tenderness (LUQ, LLQ; lesser tenderness in RLQ); No hernia Back: no CVA tenderness, no vertebral tenderness Extremities: non-tender, no calf tenderness, pedal edema 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 2-D reformats are created and submitted for interpretation. Automatic exposure controls were utilized to optimize patient dose. INDICATION: Left-sided pain COMPARISON: 10/02/2019 FINDINGS: Evaluation of the abdominal viscera is mildly limited without contrast. Lower chest: The lung bases are clear. No pericardial or pleural effusion. Peritoneum: No free intraperitoneal air or fluid. Liver and biliary system: Unenhanced liver is normal. Cholecystectomy. No biliary duct dilatation. Spleen and Pancreas: Spleen is normal. Unenhanced pancreas is grossly normal. Adrenals: Normal. tract: No hydronephrosis or ureteral dilatation. Urinary bladder is decompressed. There are no obstructing renal or ureteral stones. A nonobstructing 5 mm stone in the lower pole of the right kidney is stable since prior examination. Uterus surgically absent. GI tract: Stomach is decompressed. No bowel obstruction. Sigmoid colon diverticulosis with mild wall thickening. There is minimal fat stranding around the sigmoid colon diverticula which may represent a mild diverticulitis. No abscess. Appendix is not seen and likely surgically absent. Vasculature and Lymph nodes: Normal caliber aorta. No abdominal or pelvic lymphadenopathy. Musculoskeletal: No concerning osseous lesion. IMPRESSION: 1. No obstructive uropathy. Stable 5 mm nonobstructing stone in the lower pole of the right kidney. 2. Sigmoid colon diverticulosis with minimal stranding of pericolonic fat. This may be due to acute diverticulitis versus sequelae of more remote diverticulitis. Correlation with symptomatology is advised. 3. No abscess or perforation. Dictated by: Dictated on workstation # [id number] Dict: 08/10/21 1702 Trans: 08/10/21 1800 ELZA [id number] Interpreted by: GIUSEPPE ALVARES MD Electronically signed by: GIUSEPPE ALVARES MD 08/10/21 1800 Assessment/Plan Assessment/Plan Assessment/Plan Abdominal pain- diffuse but more in LLQ ??diverticulitis; CT abd/pevlic without contrast--> per radiology, sigmoid diverticulosis, possible mild diverticulitis, nonobstructing stone in R kidney, KUB- normal bowel gas pattern, no free air HTN, Asthma, Hx of Anxiety Continue clears and pain management, Continue Ceftriaxone and Metronidazole, Monitor labs and vitals, No surgical indications at this time Supervisory-Addendum Brief Verification & Attestation Participated in pt care: history, MDM, physical Personally performed: exam, history, MDM, supervision of care Care discussed with: Medical Student Procedures: n/a Verification and Attestation of Medical Student E/M Service A medical student performed and documented this service. I then reviewed and verified all information documented by the medical student and made modifications to such information, when appropriate. I personally performed a physical exam, medical decision making and then discussed any differences between the notes and made revisions as necessary to create one note. Prashanth Hoffmann , 08/13/21 , 17:10 KELLY ORTIZ Aug 13, 2021 14:30 PRASHANTH HOFFMANN DO Aug 13, 2021 17:03
[2021-08-13 16:19] VITALS: BP 146/67
[2021-08-13 19:53] VITALS: BP 148/82
[2021-08-13] MEDS: cefTRIAXone 1 GM IV (PRE-MIX) 50 ML IV SCH (20:29)
[2021-08-14] VITALS (7 sets, daily range): BP systolic 129–142; BP diastolic 77–83
[2021-08-14] MEDS: ENOXAPARIN 40 MG/0.4 ML (LOVENOX) SYR SQ SCH ×2 (03:40→15:30)
--- NOTE | 2021-08-14 05:57 | Progress Note - Hospitalist ---
Subjective HPI/CC On Admission Date Seen by Provider: Aug 14, 2021 Time Seen by Provider: 11:00 Subjective/Events-last exam Patient doing well Pain is improved Appreciate Dr. Andrews at the bedside Labs reviewed Review of Systems General: Fatigue, Malaise Gastrointestinal: Abdominal Pain Objective Exam Vital Signs Vital Signs Date Time Temp Pulse Resp B/P (MAP) Pulse Ox O2 Delivery O2 Flow Rate FiO2 08/15/21 03:47 36.9 64 16 142/73 (96) 94 Room Air Capillary Refill : Less Than 3 Seconds General Appearance: No Apparent Distress, WD/WN, Chronically ill Respiratory: Lungs Clear, Normal Breath Sounds Cardiovascular: Regular Rate, Rhythm Neurologic/Psychiatric: Alert, Oriented x3, No Motor/Sensory Deficits, Normal Mood/Affect Results/Procedures Lab Laboratory Tests 08/15/21 05:41 Patient resulted labs reviewed. Assessment/Plan Assessment and Plan Assess & Plan/Chief Complaint Assessment: Acute diverticulitis Abdominal pain Plan: IV antibiotics Bowel rest EMMANUEL YOUNG DO Aug 14, 2021 05:57
[2021-08-14 06:04] LABS: BASOPHILS % (AUTO) 0 % (0-10); EOSINOPHILS # (AUTO) 0.1 10^3/uL (0.0-0.3); EOSINOPHILS % (AUTO) 3 % (0-10); HEMATOCRIT 41 % (35-52); HEMOGLOBIN 13.5 g/dL (11.5-16.0); LYMPHOCYTES # (AUTO) 1.1 10^3/uL (1.0-4.0); LYMPHOCYTES % (AUTO) 23 % (12-44); MEAN CORPUSCULAR HEMOGLOBIN 30 pg (25-34); MEAN CORPUSCULAR HGB CONC 33 g/dL (32-36); MEAN CORPUSCULAR VOLUME 90 fL (80-99); MONOCYTES # (AUTO) 0.4 10^3/uL (0.0-1.0); MONOCYTES % (AUTO) 8 % (0-12); NEUTROPHILS % (AUTO) 65 % (42-75); PLATELET COUNT 157 10^3/uL (130-400); WHITE BLOOD COUNT 4.6 10^3/uL (4.3-11.0)
[2021-08-14 06:07] LABS: ALBUMIN 3.2 GM/DL (3.2-4.5); POTASSIUM 3.3 MMOL/L (3.6-5.0)
[2021-08-14 06:08] LABS: CALCIUM 8.9 MG/DL (8.5-10.1)
[2021-08-14 06:11] LABS: BILIRUBIN,TOTAL 0.7 MG/DL (0.1-1.0)
[2021-08-14 06:13] LABS: CREATININE SERUM 0.72 MG/DL (0.60-1.30)
[2021-08-14] MEDS: THYROID (ARMOUR) 60 MG TABLET PO SCH (06:27)
--- NOTE | 2021-08-14 07:49 | Progress Note - Surgery ---
KELLY ORTIZ 08/14/21 0749: Subjective Date Seen by a Provider: Aug 14, 2021 Time Seen by a Provider: 07:30 Subjective/Events-last exam Pt feeling "pretty good" this morning. Reports her abdominal pain is more concentrated in the LLQ and is now a 2/10 pain. She believes she had two loose bowel movements overnight, which were dark but did not appear tarry or have blood in them. She continues to be slightly nauseous, but has not thrown up. The pt reports her GERD flared overnight since she slept flat, with burping and pain between her shoulder blades. She elevated the head of her bed, which helped the symptoms. She continues to be on CLD. Pt denies CP, palpitations, SOB, and fever at this time. Review of Systems General: Chills, Fatigue HEENT: Head Aches; No Visual Changes Pulmonary: No Dyspnea, No Cough Cardiovascular: No: Chest Pain, Palpitations Gastrointestinal: Nausea, Abdominal Pain, Diarrhea; No: Vomiting, Melena Genitourinary: Dysuria (tender when urinating, believes her bladder gets inflamed with diverticulitis flares), Frequency Musculoskeletal: No: neck pain, leg pain Neurological: No: Weakness, Change in speech Focused Exam Respiratory: Lungs Clear, Normal Breath Sounds, No Respiratory Distress Cardiovascular: No Murmur, Bradycardia Peripheral Pulses: 2+ Radial Pulses (R), 2+ Radial Pulses (L) Skin: normal color, warm/dry Objective Exam Vital Signs Date Time Temp Pulse Resp B/P (MAP) Pulse Ox O2 Delivery O2 Flow Rate FiO2 08/14/21 03:50 36.8 58 18 129/78 (95) 96 Room Air 08/14/21 00:05 36.8 56 18 138/78 (98) 94 Room Air 08/13/21 20:30 Room Air 08/13/21 19:53 36.8 61 20 148/82 (104) 96 Room Air 08/13/21 16:19 36.8 56 18 146/67 (93) 94 Room Air 08/13/21 11:09 36.8 65 20 148/83 (104) 97 Room Air 08/13/21 08:08 Room Air I & O 08/14/21 06:59 Intake Total 2210 ml Output Total 4050 ml Balance -1840 ml Capillary Refill : Less Than 3 Seconds General Appearance: No Apparent Distress, WD/WN, Obese Respiratory: Lungs Clear, No Accessory Muscle Use, No Respiratory Distress Cardiovascular: No Murmur, Bradycardia Peripheral Pulses: 2+ Radial Pulses (R), 2+ Radial Pulses (L) Gastrointestinal: soft, no organomegaly, tenderness (LLQ; over bladder); No hernia Extremity: Normal Inspection, Pedal Edema Neurologic/Psychiatric: Alert, Oriented x3, Normal Mood/Affect Skin: Normal Color, Warm/Dry Results Lab Laboratory Tests 08/14/21 05:48: White Blood Count 4.6, Red Blood Count 4.51, Hemoglobin 13.5, Hematocrit 41, Mean Corpuscular Volume 90, Mean Corpuscular Hemoglobin 30, Mean Corpuscular Hemoglobin Concent 33, Red Cell Distribution Width 12.8, Platelet Count 157, Mean Platelet Volume 11.0, Immature Granulocyte % (Auto) 0, Neutrophils (%) (Auto) 65, Lymphocytes (%) (Auto) 23, Monocytes (%) (Auto) 8, Eosinophils (%) (Auto) 3, Basophils (%) (Auto) 0, Neutrophils # (Auto) 3.0, Lymphocytes # (Auto) 1.1, Monocytes # (Auto) 0.4, Eosinophils # (Auto) 0.1, Basophils # (Auto) 0.0, Immature Granulocyte # (Auto) 0.0, Sodium Level 139, Potassium Level 3.3L, Chloride Level 104, Carbon Dioxide Level 23, Anion Gap 12, Blood Urea Nitrogen 5L, Creatinine 0.72, Estimat Glomerular Filtration Rate 92, BUN/Creatinine Ratio 7, Glucose Level 94, Calcium Level 8.9, Corrected Calcium 9.5, Total Bilirubin 0.7, Aspartate Amino Transf (AST/SGOT) 17, Alanine Aminotransferase (ALT/SGPT) 12, Alkaline Phosphatase 79, Total Protein 6.0L, Albumin 3.2 Assessment/Plan Assessment/Plan Assessment/Plan Abdominal pain- concentrated in LLQ- diverticulitis Diarrhea HTN Asthma Depression GERD CT abd/pevlic without contrast--> per radiology, sigmoid diverticulosis, possible mild diverticulitis, nonobstructing stone in R kidney KUB- normal bowel gas pattern, no free air CLD Pain management Pepcid as needed Continue Ceftriaxone and Metronidazole Monitor labs and vitals No surgical indications at this time ALFREDO ANDREWS DO 08/14/21 1358: Subjective Time Seen by a Provider: 10:54 Subjective/Events-last exam Pt seen and examined, no new complaints in fact she states the pain is improved. + BM Review of Systems General: Chills, Fatigue HEENT: Head Aches Pulmonary: No Dyspnea, No Cough Cardiovascular: No: Chest Pain, Palpitations Gastrointestinal: Nausea, Abdominal Pain, Diarrhea; No: Vomiting Genitourinary: Dysuria (tender when urinating, believes her bladder gets inflamed with diverticulitis flares), Frequency Objective Exam General Appearance: No Apparent Distress, Obese Respiratory: Lungs Clear, Normal Breath Sounds, No Accessory Muscle Use, No Respiratory Distress Cardiovascular: No Murmur, Bradycardia Gastrointestinal: soft, tenderness (LLQ; over bladder); No hernia Extremity: Pedal Edema Neurologic/Psychiatric: Alert, Oriented x3 Assessment/Plan Assessment/Plan Assessment/Plan Abdominal pain-diverticulitis Diarrhea HTN Asthma Depression GERD Continue clears and as long as pain doesn't get worse, will try a soft diet tonight. Continue pain management as needed, GI prophylaxis, Continue Ceftriaxone and Metronidazole Monitor labs and vitals, No surgical indications at this time Supervisory-Addendum Brief Verification & Attestation Participated in pt care: history, MDM, physical Personally performed: exam, history, MDM, supervision of care Care discussed with: Medical Student Procedures: n/a Verification and Attestation of Medical Student E/M Service A medical student performed and documented this service. I then reviewed and verified all information documented by the medical student and made modifications to such information, when appropriate. I personally performed a physical exam, medical decision making and then discussed any differences between the notes and made revisions as necessary to create one note. Alfredo Andrews , 08/14/21 , 13:58 KELLY ORTIZ Aug 14, 2021 07:49 ALFREDO ANDREWS DO Aug 14, 2021 13:58
[2021-08-14] MEDS: LACTOBACILLUS ACIDOPHILUS (PROBIOTIC) CAPSULE PO SCH (08:40)
[2021-08-14] MEDS: metroNIDAZOLE 500 MG/100 ML IVPB (PRE-MIX) IV SCH ×2 (08:40→19:57)
[2021-08-14] MEDS: LACTATED RINGERS 1,000 ML IV SCH ×2 (08:40→19:17)
[2021-08-14] MEDS: cefTRIAXone 1 GM IV (PRE-MIX) 50 ML IV SCH (19:57)
[2021-08-15] MEDS: LACTATED RINGERS 1,000 ML IV SCH (03:13)
[2021-08-15] MEDS: ENOXAPARIN 40 MG/0.4 ML (LOVENOX) SYR SQ SCH (03:21)
[2021-08-15 03:47] VITALS: BP 142/73
[2021-08-15 05:51] LABS: BASOPHILS % (AUTO) 1 % (0-10); EOSINOPHILS # (AUTO) 0.1 10^3/uL (0.0-0.3); EOSINOPHILS % (AUTO) 1 % (0-10); HEMATOCRIT 42 % (35-52); HEMOGLOBIN 14.1 g/dL (11.5-16.0); LYMPHOCYTES % (AUTO) 21 % (12-44); MEAN CORPUSCULAR HEMOGLOBIN 30 pg (25-34); MEAN CORPUSCULAR HGB CONC 33 g/dL (32-36); MEAN CORPUSCULAR VOLUME 89 fL (80-99); MEAN PLATELET VOLUME 11.1 fL (9.0-12.2); MONOCYTES # (AUTO) 0.4 10^3/uL (0.0-1.0); MONOCYTES % (AUTO) 8 % (0-12); NEUTROPHILS # (AUTO) 3.5 10^3/uL (1.8-7.8); NEUTROPHILS % (AUTO) 69 % (42-75); PLATELET COUNT 175 10^3/uL (130-400)
[2021-08-15 06:03] LABS: ALBUMIN 3.4 GM/DL (3.2-4.5); POTASSIUM 3.4 MMOL/L (3.6-5.0)
[2021-08-15 06:05] LABS: CALCIUM 9.1 MG/DL (8.5-10.1)
[2021-08-15 06:06] LABS: TOTAL PROTEIN 6.2 GM/DL (6.4-8.2)
[2021-08-15 06:07] LABS: BILIRUBIN,TOTAL 0.7 MG/DL (0.1-1.0)
[2021-08-15 06:09] LABS: CREATININE SERUM 0.72 MG/DL (0.60-1.30)
[2021-08-15] MEDS: THYROID (ARMOUR) 60 MG TABLET PO SCH (06:18)
--- NOTE | 2021-08-15 07:30 | Progress Note - Hospitalist ---
Subjective HPI/CC On Admission Date Seen by Provider: Aug 15, 2021 Objective Exam Vital Signs Vital Signs Date Time Temp Pulse Resp B/P (MAP) Pulse Ox O2 Delivery O2 Flow Rate FiO2 08/15/21 11:18 36.6 59 18 139/79 (99) 96 Room Air Capillary Refill : Less Than 3 Seconds Results/Procedures Lab Laboratory Tests 08/15/21 05:41 Patient resulted labs reviewed. Assessment/Plan Assessment and Plan Assess & Plan/Chief Complaint Assessment: Acute diverticulitis Abdominal pain Plan: IV antibiotics Bowel rest EMMANUEL YOUNG DO Aug 15, 2021 07:30
[2021-08-15 07:47] VITALS: BP 148/80
[2021-08-15] MEDS: LACTOBACILLUS ACIDOPHILUS (PROBIOTIC) CAPSULE PO SCH (08:22)
[2021-08-15] MEDS: metroNIDAZOLE 500 MG/100 ML IVPB (PRE-MIX) IV SCH (08:23)
[2021-08-15] MEDS ORDERED: POTASSIUM CL 10MEQ/50ML IVPB 50 ML IV SCH (08:30)
--- NOTE | 2021-08-15 10:33 | Progress Note - Surgery ---
KELLY ORTIZ 08/15/21 1033: Subjective Date Seen by a Provider: Aug 15, 2021 Time Seen by a Provider: 10:10 Subjective/Events-last exam Pt seems a little down this morning. She was sitting up in her chair. Said she is not feeling as well as she was yesterday. Pain is currently 3/10 in the center of her lower abdomen. It was 5/10 at times last night. She continues to have diarrhea frequently. No blood reported in the stool; it is brown and has mucous. She had an episode overnight where she felt like she had to urinate, but couldn't go. She has since gone without issue. No burning or blood when she does urinate. The pt reports being slightly nauseous and burping after beginning her Dys3 diet. She had mashed potatoes and gravy last night, and oatmeal with eggs this morning. She feels bloated. No reflux overnight. She would be interested in ambulating in the halls, but really wants to go home. Review of Systems General: Chills, Malaise HEENT: No Head Aches, No Visual Changes Pulmonary: No Dyspnea, No Cough Cardiovascular: No: Chest Pain, Palpitations Gastrointestinal: Nausea, Abdominal Pain, Diarrhea; No: Vomiting Genitourinary: No Dysuria; Other (one episode of feeling like she had to go but couldn't) Musculoskeletal: No: neck pain, leg pain Neurological: No: Weakness, Change in speech Focused Exam Respiratory: Lungs Clear, Normal Breath Sounds, No Respiratory Distress Cardiovascular: Regular Rate, Rhythm, No Murmur Peripheral Pulses: 2+ Radial Pulses (R), 2+ Radial Pulses (L) Skin: normal color, warm/dry Objective Exam Vital Signs Date Time Temp Pulse Resp B/P (MAP) Pulse Ox O2 Delivery O2 Flow Rate FiO2 08/15/21 09:00 Room Air 08/15/21 07:47 36.8 63 16 148/80 (102) 96 Room Air 08/15/21 03:47 36.9 64 16 142/73 (96) 94 Room Air 08/14/21 23:35 36.4 61 16 137/77 (97) 95 Room Air 08/14/21 19:49 Room Air 08/14/21 19:18 36.3 60 18 135/79 (97) 95 Room Air 08/14/21 15:33 35.5 54 18 135/80 (98) 95 Room Air 08/14/21 11:35 36.7 56 18 129/80 (96) 96 Room Air I & O 08/15/21 07:00 Intake Total 3770 ml Output Total 2200 ml Balance 1570 ml Capillary Refill : Less Than 3 Seconds General Appearance: No Apparent Distress, WD/WN, Chronically ill Respiratory: Lungs Clear, Normal Breath Sounds, No Respiratory Distress Cardiovascular: Regular Rate, Rhythm, No Murmur Peripheral Pulses: 2+ Radial Pulses (R), 2+ Radial Pulses (L) Gastrointestinal: soft, tenderness (epigastric; over bladder; LLQ); No hernia Extremity: Normal Inspection, Pedal Edema Neurologic/Psychiatric: Alert, Oriented x3, Depressed Affect Skin: Normal Color, Warm/Dry Results Lab Laboratory Tests 08/15/21 05:41: White Blood Count 5.0, Red Blood Count 4.73, Hemoglobin 14.1, Hematocrit 42, Mean Corpuscular Volume 89, Mean Corpuscular Hemoglobin 30, Mean Corpuscular Hemoglobin Concent 33, Red Cell Distribution Width 12.7, Platelet Count 175, Mean Platelet Volume 11.1, Immature Granulocyte % (Auto) 0, Neutrophils (%) (Auto) 69, Lymphocytes (%) (Auto) 21, Monocytes (%) (Auto) 8, Eosinophils (%) (Auto) 1, Basophils (%) (Auto) 1, Neutrophils # (Auto) 3.5, Lymphocytes # (Auto) 1.0, Monocytes # (Auto) 0.4, Eosinophils # (Auto) 0.1, Basophils # (Auto) 0.0, Immature Granulocyte # (Auto) 0.0, Sodium Level 139, Potassium Level 3.4L, Chloride Level 104, Carbon Dioxide Level 23, Anion Gap 12, Blood Urea Nitrogen 4L, Creatinine 0.72, Estimat Glomerular Filtration Rate 92, BUN/Creatinine Ratio 6, Glucose Level 101, Calcium Level 9.1, Corrected Calcium 9.6, Total Bilirubin 0.7, Aspartate Amino Transf (AST/SGOT) 21, Alanine Aminotransferase (ALT/SGPT) 15, Alkaline Phosphatase 79, Total Protein 6.2L, Albumin 3.4 Assessment/Plan Assessment/Plan Assessment/Plan Abdominal pain-diverticulitis Diarrhea HTN Asthma Depression GERD Continue Dys 3 diet Continue pain management as needed GI prophylaxis Continue Ceftriaxone and Metronidazole Monitor labs and vitals Consider d/c home based on pt wishes ALFREDO ANDREWS DO 08/15/21 1357: Subjective Time Seen by a Provider: 13:07 Subjective/Events-last exam Pt seen and examined, states she is doing better and wants to go home. Mild nausea; "but, doesn't make we want to throw up." States she has Zofran at home. Review of Systems General: Malaise Pulmonary: No Dyspnea, No Cough Cardiovascular: No: Chest Pain, Palpitations Gastrointestinal: Nausea, Abdominal Pain, Diarrhea; No: Vomiting Objective Exam General Appearance: No Apparent Distress, Obese Respiratory: Lungs Clear, Normal Breath Sounds, No Accessory Muscle Use, No Respiratory Distress Cardiovascular: Regular Rate, Rhythm, No Murmur Gastrointestinal: soft, tenderness (epigastric; over bladder; LLQ); No hernia Assessment/Plan Assessment/Plan Assessment/Plan Abdominal pain-diverticulitis Diarrhea HTN Asthma Depression GERD Diet as tolerated, Zofran as needed, tylenol for pain management Can probably stop ABX and d/c home Supervisory-Addendum Brief Verification & Attestation Participated in pt care: history, MDM, physical Personally performed: exam, history, MDM, supervision of care Care discussed with: Medical Student Procedures: n/a Verification and Attestation of Medical Student E/M Service A medical student performed and documented this service. I then reviewed and verified all information documented by the medical student and made modifications to such information, when appropriate. I personally performed a physical exam, medical decision making and then discussed any differences between the notes and made revisions as necessary to create one note. Alfredo Andrews , 08/15/21 , 13:56 KELLY ORTIZ Aug 15, 2021 10:33 ALFREDO ANDREWS DO Aug 15, 2021 13:57
[2021-08-15] MEDS ORDERED: KCL 10 MEQ TAB (MICRO K) PO ONE (11:00)
[2021-08-15 11:18] VITALS: BP 139/79
--- NOTE | 2021-08-15 13:42 | Discharge Inst-Surgical ---
Discharge Inst-Surgical Depart Medication/Instructions New, Converted or Re-Newed RX: Other (restart home meds) Patient Instructions Follow up Appt: Make appointment for 1 week. [phone] Instructions: May shower in 24 hours, no tub bath or soaking. Use incentive spirometer at home as directed. No Smoking Symptoms to Report: Appetite Changes, Extremity Discoloration, Numbness/Tingling, Swelling Increased, Bleeding Excessive, Eyesight Changes, Pain Increased, Urine Color Change, Constipation(Persistent), Fever over 101 degree F, Pain/Pressure in chest, Urinating Difficulty, Cough Up/Vomit Blood, Heart Beat Irreg/Pounding, Pain/Pressure in jaw, Cramps in feet or legs, Lightheadedness, Pain/Pressure in shoulder, Diarrhea(Persistent), Memory Changes Suddenly, Questions/Concerns, Weight gain consecutive days, Dizziness/Fainting, Nausea/Vomiting, Shortness of Breath, Weight gain over 2 pounds If questions or concerns contact your physician Or seek help at emergency department. Activity Activity as Tolerated: Yes Activity Instructions: Avoid Stress to Incision Driving Instructions: You May Drive Diet Discharge Diet: Low Residue Diet After 24 Hours: Clear Liquid if Nauseous If Any Problems/Questions/Issu: Contact Your Physician, Go to Emergency Room Skin/Wound Care Infection Signs and Symptoms: Increased Swelling, Temperature Above 101 F Bathing Instructions: PRASHANTH Mancuso DO Aug 15, 2021 13:42
--- NOTE | 2021-08-15 15:38 | Discharge Summary ---
Diagnosis/Chief Complaint Date of Admission Aug 11, 2021 at 23:49 Date of Discharge Aug 15, 2021 at 14:00 Discharge Date: Aug 13, 2021 Discharge Diagnosis Acute diverticulitis Irritable bowel syndrome Abdominal pain Discharge Summary Discharge Physical Examination Allergies: Coded Allergies: Iodinated Contrast Media (Verified Allergy, Severe, 07/20/19) Sulfa (Sulfonamide Antibiotics) (Unverified Allergy, Mild, 12/20/08) indomethacin (Unverified Allergy, Mild, 12/20/08) iodine (Unverified Allergy, Mild, 12/20/08) lansoprazole (Unverified Allergy, Mild, Pt has received Pantoprazole in the past w/o issue, 10/02/19) latex (Unverified Allergy, Mild, 12/20/08) meperidine (Unverified Allergy, Mild, 12/20/08) paroxetine (Unverified Allergy, Mild, 12/20/08) ciprofloxacin (Verified Allergy, Unknown, 07/20/19) Uncoded Allergies: ANIMAL DANDER (Allergy, Mild, 12/20/08) TAPE (Allergy, Mild, 12/20/08) Vitals & I&Os Vital Signs Date Time Temp Pulse Resp B/P (MAP) Pulse Ox O2 Delivery O2 Flow Rate FiO2 08/15/21 11:18 36.6 59 18 139/79 (99) 96 Room Air General Appearance: Alert, Oriented X3, Cooperative Respiratory: Clear to Auscultation Cardiovascular: Regular Rate Neuro: Normal Gait, Normal Speech, Strength at 5/5 X4 Ext Psych/Mental Status: Mental Status NL Hospital Course Was the Problem List Reviewed?: Yes Patient had an uneventful hospital course although lengthy due to acute di verticulitis and continued abdominal pain with no issues. IV fluids and IV antibiotics were maintained along with pain medication patient was deemed stable for discharge. Labs (last 24 hrs) Laboratory Tests 08/11/21 22:49: White Blood Count 9.8, Red Blood Count 4.96, Hemoglobin 14.9, Hematocrit 44, Mean Corpuscular Volume 89, Mean Corpuscular Hemoglobin 30, Mean Corpuscular Hemoglobin Concent 34, Red Cell Distribution Width 13.1, Platelet Count 198, Mean Platelet Volume 10.7, Immature Granulocyte % (Auto) 0, Neutrophils (%) (Auto) 85H, Lymphocytes (%) (Auto) 9L, Monocytes (%) (Auto) 5, Eosinophils (%) (Auto) 0, Basophils (%) (Auto) 0, Neutrophils # (Auto) 8.3H, Lymphocytes # (Auto) 0.9L, Monocytes # (Auto) 0.5, Eosinophils # (Auto) 0.0, Basophils # (Auto) 0.0, Immature Granulocyte # (Auto) 0.0, Sodium Level 136, Potassium Level 3.4L, Chloride Level 101, Carbon Dioxide Level 21, Anion Gap 14, Blood Urea Nitrogen 9, Creatinine 0.77, Estimat Glomerular Filtration Rate 84, BUN/Creatinine Ratio 12, Glucose Level 136H, Calcium Level 9.4, Corrected Calcium 9.4, Magnesium Level 1.8, Total Bilirubin 1.2H, Aspartate Amino Transf (AST/SGOT) 15, Alanine Aminotransferase (ALT/SGPT) 13, Alkaline Phosphatase 94, C-Reactive Protein High Sensitivity 3.78H, Total Protein 7.3, Albumin 4.0 08/11/21 23:10: Urine Color YELLOW, Urine Clarity CLEAR, Urine pH 6.0, Urine Specific [place] 1.015L, Urine Protein NEGATIVE, Urine Glucose (UA) NEGATIVE, Urine Ketones TRACEH, Urine Nitrite NEGATIVE, Urine Bilirubin NEGATIVE, Urine Urobilinogen 0.2, Urine Leukocyte Esterase NEGATIVE, Urine RBC (Auto) NEGATIVE, Urine RBC NONE, Urine WBC NONE, Urine Squamous Epithelial Cells 0-2, Urine Crystals NONE, Urine Bacteria NEGATIVE, Urine Casts NONE, Urine Mucus NEGATIVE, Urine Culture Indicated NO 08/12/21 05:00: White Blood Count 7.8, Red Blood Count 4.57, Hemoglobin 13.7, Hematocrit 41, Mean Corpuscular Volume 89, Mean Corpuscular Hemoglobin 30, Mean Corpuscular Hemoglobin Concent 34, Red Cell Distribution Width 13.1, Platelet Count 162, Mean Platelet Volume 10.9, Immature Granulocyte % (Auto) 0, Neutrophils (%) (Auto) 77H, Lymphocytes (%) (Auto) 16, Monocytes (%) (Auto) 6, Eosinophils (%) (Auto) 1, Basophils (%) (Auto) 0, Neutrophils # (Auto) 5.9, Lymphocytes # (Auto) 1.3, Monocytes # (Auto) 0.5, Eosinophils # (Auto) 0.1, Basophils # (Auto) 0.0, Immature Granulocyte # (Auto) 0.0, Sodium Level 139, Potassium Level 3.5L, Chloride Level 104, Carbon Dioxide Level 22, Anion Gap 13, Blood Urea Nitrogen 8 , Creatinine 0.73, Estimat Glomerular Filtration Rate 90, BUN/Creatinine Ratio 11, Glucose Level 103, Calcium Level 9.0 08/13/21 05:27: White Blood Count 4.6, Red Blood Count 4.51, Hemoglobin 13.5, Hematocrit 41, Mean Corpuscular Volume 91, Mean Corpuscular Hemoglobin 30, Mean Corpuscular Hemoglobin Concent 33, Red Cell Distribution Width 13.0, Platelet Count 157, Mean Platelet Volume 11.1, Sodium Level 140, Potassium Level 3.5L, Chloride Level 104, Carbon Dioxide Level 23, Anion Gap 13, Blood Urea Nitrogen 6L, Creatinine 0.75, Estimat Glomerular Filtration Rate 87, BUN/Creatinine Ratio 8, Glucose Level 96, Calcium Level 8.9, Corrected Calcium 9.5, Total Bilirubin 0.7, Aspartate Amino Transf (AST/SGOT) 14, Alanine Aminotransferase (ALT/SGPT) 13, Alkaline Phosphatase 83, Total Protein 6.1L, Albumin 3.3 08/14/21 05:48: White Blood Count 4.6, Red Blood Count 4.51, Hemoglobin 13.5, Hematocrit 41, Mean Corpuscular Volume 90, Mean Corpuscular Hemoglobin 30, Mean Corpuscular Hemoglobin Concent 33, Red Cell Distribution Width 12.8, Platelet Count 157, Mean Platelet Volume 11.0, Immature Granulocyte % (Auto) 0, Neutrophils (%) (Auto) 65, Lymphocytes (%) (Auto) 23, Monocytes (%) (Auto) 8, Eosinophils (%) (Auto) 3, Basophils (%) (Auto) 0, Neutrophils # (Auto) 3.0, Lymphocytes # (Auto) 1.1, Monocytes # (Auto) 0.4, Eosinophils # (Auto) 0.1, Basophils # (Auto) 0.0, Immature Granulocyte # (Auto) 0.0, Sodium Level 139, Potassium Level 3.3L, Chloride Level 104, Carbon Dioxide Level 23, Anion Gap 12, Blood Urea Nitrogen 5 L, Creatinine 0.72, Estimat Glomerular Filtration Rate 92, BUN/Creatinine Ratio 7, Glucose Level 94, Calcium Level 8.9, Corrected Calcium 9.5, Total Bilirubin 0.7, Aspartate Amino Transf (AST/SGOT) 17, Alanine Aminotransferase (ALT/SGPT) 12, Alkaline Phosphatase 79, Total Protein 6.0L, Albumin 3.2 08/15/21 05:41: White Blood Count 5.0, Red Blood Count 4.73, Hemoglobin 14.1, Hematocrit 42, Mean Corpuscular Volume 89, Mean Corpuscular Hemoglobin 30, Mean Corpuscular Hemoglobin Concent 33, Red Cell Distribution Width 12.7, Platelet Count 175, Mean Platelet Volume 11.1, Immature Granulocyte % (Auto) 0, Neutrophils (%) (Auto) 69, Lymphocytes (%) (Auto) 21, Monocytes (%) (Auto) 8, Eosinophils (%) (Auto) 1, Basophils (%) (Auto) 1, Neutrophils # (Auto) 3.5, Lymphocytes # (Auto) 1.0, Monocytes # (Auto) 0.4, Eosinophils # (Auto) 0.1, Basophils # (Auto) 0.0, Immature Granulocyte # (Auto) 0.0, Sodium Level 139, Potassium Level 3.4L, Chloride Level 104, Carbon Dioxide Level 23, Anion Gap 12, Blood Urea Nitrogen 4L, Creatinine 0.72, Estimat Glomerular Filtration Rate 92, BUN/Creatinine Ratio 6, Glucose Level 101, Calcium Level 9.1, Corrected Calcium 9.6, Total Bilirubin 0.7, Aspartate Amino Transf (AST/SGOT) 21, Alanine Aminotransferase (ALT/SGPT) 15, Alkaline Phosphatase 79, Total Protein 6.2L, Albumin 3.4 Pending Labs Laboratory Tests 08/11/21 22:49: White Blood Count 9.8, Red Blood Count 4.96, Hemoglobin 14.9, Hematocrit 44, Mean Corpuscular Volume 89, Mean Corpuscular Hemoglobin 30, Mean Corpuscular Hemoglobin Concent 34, Red Cell Distribution Width 13.1, Platelet Count 198, Mean Platelet Volume 10.7, Immature Granulocyte % (Auto) 0, Neutrophils (%) (Auto) 85, Lymphocytes (%) (Auto) 9, Monocytes (%) (Auto) 5, Eosinophils (%) (Auto) 0, Basophils (%) (Auto) 0, Neutrophils # (Auto) 8.3, Lymphocytes # (Auto) 0.9, Monocytes # (Auto) 0.5, Eosinophils # (Auto) 0.0, Basophils # (Auto) 0.0, Immature Granulocyte # (Auto) 0.0, Sodium Level 136, Potassium Level 3.4, Chloride Level 101, Carbon Dioxide Level 21, Anion Gap 14, Blood Urea Nitrogen 9, Creatinine 0.77, Estimat Glomerular Filtration Rate 84, BUN/Creatinine Ratio 12, Glucose Level 136, Calcium Level 9.4, Corrected Calcium 9.4, Magnesium Level 1.8, Total Bilirubin 1.2, Aspartate Amino Transf (AST/SGOT) 15, Alanine Aminotransferase (ALT/SGPT) 13, Alkaline Phosphatase 94, C-Reactive Protein High Sensitivity 3.78, Total Protein 7.3, Albumin 4.0 08/11/21 23:10: Urine Color YELLOW, Urine Clarity CLEAR, Urine pH 6.0, Urine Specific [place] 1.015, Urine Protein NEGATIVE, Urine Glucose (UA) NEGATIVE, Urine Ketones TRACE, Urine Nitrite NEGATIVE, Urine Bilirubin NEGATIVE, Urine Urobilinogen 0.2, Urine Leukocyte Esterase NEGATIVE, Urine RBC (Auto) NEGATIVE, Urine RBC NONE, Urine WBC NONE, Urine Squamous Epithelial Cells 0-2, Urine Crystals NONE, Urine Bacteria NEGATIVE, Urine Casts NONE, Urine Mucus NEGATIVE, Urine Culture Indicated NO 08/12/21 05:00: White Blood Count 7.8, Red Blood Count 4.57, Hemoglobin 13.7, Hematocrit 41, Mean Corpuscular Volume 89, Mean Corpuscular Hemoglobin 30, Mean Corpuscular Hemoglobin Concent 34, Red Cell Distribution Width 13.1, Platelet Count 162, Mean Platelet Volume 10.9, Immature Granulocyte % (Auto) 0, Neutrophils (%) (Auto) 77, Lymphocytes (%) (Auto) 16, Monocytes (%) (Auto) 6, Eosinophils (%) (Auto) 1, Basophils (%) (Auto) 0, Neutrophils # (Auto) 5.9, Lymphocytes # (Auto) 1.3, Monocytes # (Auto) 0.5, Eosinophils # (Auto) 0.1, Basophils # (Auto) 0.0, Immature Granulocyte # (Auto) 0.0, Sodium Level 139, Potassium Level 3.5, Chloride Level 104, Carbon Dioxide Level 22, Anion Gap 13, Blood Urea Nitrogen 8, Creatinine 0.73, Estimat Glomerular Filtration Rate 90, BUN/Creatinine Ratio 11, Glucose Level 103, Calcium Level 9.0 08/13/21 05:27: White Blood Count 4.6, Red Blood Count 4.51, Hemoglobin 13.5, Hematocrit 41, Mean Corpuscular Volume 91, Mean Corpuscular Hemoglobin 30, Mean Corpuscular Hemoglobin Concent 33, Red Cell Distribution Width 13.0, Platelet Count 157, Mean Platelet Volume 11.1, Sodium Level 140, Potassium Level 3.5, Chloride Level 104, Carbon Dioxide Level 23, Anion Gap 13, Blood Urea Nitrogen 6, Creatinine 0.75, Estimat Glomerular Filtration Rate 87, BUN/Creatinine Ratio 8, Glucose Level 96, Calcium Level 8.9, Corrected Calcium 9.5, Total Bilirubin 0.7, Aspartate Amino Transf (AST/SGOT) 14, Alanine Aminotransferase (ALT/SGPT) 13, Alkaline Phosphatase 83, Total Protein 6.1, Albumin 3.3 08/14/21 05:48: White Blood Count 4.6, Red Blood Count 4.51, Hemoglobin 13.5, Hematocrit 41, Mean Corpuscular Volume 90, Mean Corpuscular Hemoglobin 30, Mean Corpuscular Hemoglobin Concent 33, Red Cell Distribution Width 12.8, Platelet Count 157, Mean Platelet Volume 11.0, Immature Granulocyte % (Auto) 0, Neutrophils (%) (Auto) 65, Lymphocytes (%) (Auto) 23, Monocytes (%) (Auto) 8, Eosinophils (%) (Auto) 3, Basophils (%) (Auto) 0, Neutrophils # (Auto) 3.0, Lymphocytes # (Auto) 1.1, Monocytes # (Auto) 0.4, Eosinophils # (Auto) 0.1, Basophils # (Auto) 0.0, Immature Granulocyte # (Auto) 0.0, Sodium Level 139, Potassium Level 3.3, Chloride Level 104, Carbon Dioxide Level 23, Anion Gap 12, Blood Urea Nitrogen 5, Creatinine 0.72, Estimat Glomerular Filtration Rate 92, BUN/Creatinine Ratio 7, Glucose Level 94, Calcium Level 8.9, Corrected Calcium 9.5, Total Bilirubin 0.7, Aspartate Amino Transf (AST/SGOT) 17, Alanine Aminotransferase (ALT/SGPT) 12, Alkaline Phosphatase 79, Total Protein 6.0, Albumin 3.2 08/15/21 05:41: White Blood Count 5.0, Red Blood Count 4.73, Hemoglobin 14.1, Hematocrit 42, Mean Corpuscular Volume 89, Mean Corpuscular Hemoglobin 30, Mean Corpuscular Hemoglobin Concent 33, Red Cell Distribution Width 12.7, Platelet Count 175, Mean Platelet Volume 11.1, Immature Granulocyte % (Auto) 0, Neutrophils (%) (Auto) 69, Lymphocytes (%) (Auto) 21, Monocytes (%) (Auto) 8, Eosinophils (%) (Auto) 1, Basophils (%) (Auto) 1, Neutrophils # (Auto) 3.5, Lymphocytes # (Auto) 1.0, Monocytes # (Auto) 0.4, Eosinophils # (Auto) 0.1, Basophils # (Auto) 0.0, Immature Granulocyte # (Auto) 0.0, Sodium Level 139, Potassium Level 3.4, Chloride Level 104, Carbon Dioxide Level 23, Anion Gap 12, Blood Urea Nitrogen 4, Creatinine 0.72, Estimat Glomerular Filtration Rate 92, BUN/Creatinine Ratio 6, Glucose Level 101, Calcium Level 9.1, Corrected Calcium 9.6, Total Bilirubin 0.7, Aspartate Amino Transf (AST/SGOT) 21, Alanine Aminotransferase (ALT/SGPT) 15, Alkaline Phosphatase 79, Total Protein 6.2, Albumin 3.4 Discharge Home Medications: Active Scripts Active Reported [Vitamin D Cream] Cr 1 Applic TOP UD [Sandrine Support] 1 Ea PO DAILY Vitamin E (Vitamin E Mixed) 100 Unit Tablet 100 Unit PO DAILY Probiotic (Lactobacillus Acidophilus) 1 Each Capsule 1 Each PO DAILY Promethazine Tablet (Promethazine HCl) 25 Mg Tablet 25 Mg PO Q8H PRN Paper Control Clerk Thyroid (Thyroid,Pork) 30 Mg Tablet 30 Mg PO DAILY Hydrocodone-Acetamin 5-325 mg (Hydrocodone/Acetaminophen) 1 Each Tablet 1 Ea PO Q6H PRN Ondansetron Odt (Ondansetron) 4 Mg Tab.rapdis 4 Mg PO Q6H PRN Metronidazole 500 Mg Tablet 500 Mg PO BID FILLED 08-10-2021 #14/7 DAY SUPPLY Cephalexin 500 Mg Capsule 500 Mg PO Q8H FILLED 08-10-2021 #21/7 DAY SUPPLY Benadryl (Diphenhydramine HCl) 25 Mg Capsule 25-50 Mg PO Q4 -6H PRN Instructions to patient/family Please see electronic discharge instructions given to patient. EMMANUEL YOUNG DO Aug 15, 2021 15:38
== END 2021-08-15 14:00 | disposition home or self-care (01) ==
LOC: EDUNIT# 20:48 → ER 20:50 → 4TH 23:49
PROVIDERS: ADMIT Family Medicine; ATTEND Internal Medicine
DX: K57.33 Diverticulitis of large intestine without perforation or abscess with bleeding (principal); K58.2 Mixed irritable bowel syndrome; N39.0 Urinary tract infection, site not specified; I10 Essential (primary) hypertension; K21.9 Gastro-esophageal reflux disease without esophagitis; J45.909 Unspecified asthma, uncomplicated; F32.A Depression, unspecified; Z79.899 Other long term (current) drug therapy
CPT/HCPCS: 36415; 74018; 80048; 80053; 81000; 83735; 85025; 85027; 86141; G0378

== ENCOUNTER → 2022-01-04 | Outpatient (CLI) | payer MEDICARE, OTHER ==
[~2022-01-04] MED LIST changes: +LACT1CAP62 PO; +THYR30TA21 PO; +VITA100T8 PO; +VITAMIN D TOP; +[UNRECOGNIZED DRUG - OTHER] PO
--- NOTE | 2022-01-04 15:19 | Diagnostic Imaging Report ---
INDICATION: Screening. EXAMINATION: Bilateral digital 3D screening with CAD. COMPARISON: February 2019, June 2017, and September 2015. FINDINGS: The chronic right breast nodule at anterior depth medial to the nipple line is stable. A heterogeneously dense parenchymal pattern persists, overall unchanged from the prior exams. No new or suspicious mass. No spiculated lesion or architectural distortion. There are no suspicious calcifications. The skin, nipples, and axillae are within normal limits and stable. IMPRESSION: Stable benign findings. ACR BI-RADS Category 2: Benign findings. Result letter will be mailed to the patient. Note: At least 10% of breast cancer is not imaged by mammography. Dictated by: Dictated on workstation # [id number]
== END ==
LOC: RAD 11:00
PROVIDERS: ATTEND Nurse Practitioner Family
DX: Z12.31 Encounter for screening mammogram for malignant neoplasm of breast (principal)
CPT/HCPCS: 77063; 77067